=== PATIENT | female | born 1985 | race Caucasian/White ===

== ENCOUNTER → 2018-02-02 16:30 | Outpatient (CLI) | payer OTHER, SELFPAY ==
--- NOTE | 2018-02-02 16:36 | US_ITS ---
STUDY: SECOND AND THIRD TRIMESTER OBSTETRICAL ULTRASOUND REASON FOR EXAM: Female, 32 years old. anatomy. LMP: 09/15/2017 TECHNIQUE: Transabdominal PRIOR ULTRASOUND: None. FINDINGS: There is a single intrauterine fetus. The fetus is in a cephalic presentation. There is demonstrated cardiac activity with a heart rate of 153 bpm. There is a normal amniotic fluid volume. The largest amniotic fluid pocket measures 7.9 cm. The placenta is posterior with a marginal previa. There are Grade 0 placental changes. The cervix measures 3.8 cm in length. The adnexal regions are not visualized. BIOMETRY: BPD: 4.4: 19 weeks, 3 days HC: 17.4: 20 weeks, 0 days AC: 14.7: 20 weeks, 1 days FL: 3.2: 20 weeks, 0 days CI: FL/BPD: FL/HC: FL/AC: HC/AC: age by current US: 20 weeks, 0 days. SARTHAK by current US: 06/22/2018. Estimated weight: 324 grams, +/- 47 grams, 43 %. age by prior US: weeks, days. SARTHAK by prior US: . Age by LMP: 20 weeks, 0 days. SARTHAK by LMP: 06/22/2018. ANATOMY: Gender: Female Cranium: Normal lateral ventricles. Normal choroid plexus. Normal cerebellum. Normal cisterna magna. Normal face, nose and lips. Chest: Normal 4-chamber heart. Abdomen/Pelvis: Normal diaphragm. Normal stomach. Normal abdominal wall. Normal cord insertion. Normal 3 vessel cord. Normal kidneys. Normal bladder. Spine: Normal cervical spine. Normal thoracic spine. Normal lumbar spine. Normal sacrum. Extremities: Normal bilateral upper extremities. Normal bilateral lower extremities. US/OB Anatomy Scan IMPRESSION: Single live fetus in a vertex presentation. No demonstrated anatomic abnormality. Placenta is grade 0 and is marginal previa. Cervix is closed. age by current US: 20 weeks, 0 days. SARTHAK by current US: 06/22/2018. Estimated weight: 324 grams, +/- 47 grams, 43 %. Electronically Signed: Avni Larsen MD at 19:03 EDT , Service support ,
== END ==
PROVIDERS: Family Provider Family Medicine; PCP Family Medicine; Visit Provider Obstetrics & Gynecology
DX: Z34.81 Encounter for supervision of other normal pregnancy, first trimester (principal); Z36.9 Encounter for antenatal screening, unspecified
CPT/HCPCS: 76805

== ENCOUNTER → 2018-03-23 09:26 | Outpatient (CLI) | payer OTHER, SELFPAY ==
[2018-03-23 09:54] LABS: Absolute Lymphocyte Count 1.26 X10^3/ul (0.83-4.51); Absolute Neutrophil Count 5.8 X10^3/uL (2.0-7.7); Basophil# 0.01 X10^3/uL; Basophil% 0.1 % (0-1); Eosinophils% 1.3 % (0-5); Hematocrit 31.5 % (37-47); Hemoglobin 10.7 g/dl (12.0-15.0); Lymphocyte # 1.26 X10^3/ul (4.0); Lymphocyte % 16.8 % (19-41); Mean Corpuscular Hgb 31.8 pg (27.0-32.0); Mean Corpuscular Volume 93.8 fL (81-99); Mean Platelet Vol. 9.9 fl (6.2-12.0); Monocyte# 0.33 X10^3/uL; Monocyte% 4.4 % (0-10); Neutrophil # 5.78 X10^3/uL (2.7-7.7); Neutrophil % 77.1 % (47-70); POSITIVE COUNT NO; POSITIVE DIFFERENTIAL NO; POSITIVE MORPHOLOGY NO; Platelet Count 243 K/mm3 (150-450); RBC Distribution Width CV 13.8 % (11.6-14.6); RBC Distribution Width SD 45.3 fl (35.1-43.9); Red Blood Count 3.36 M/mm3 (4.2-5.4); White Blood Count 7.5 K/mm3 (4.4-11.0)
[2018-03-23 10:15] LABS: Glucose Challenge Gest 1H 50g 126 mg/dL (70-140)
== END ==
PROVIDERS: Family Provider Family Medicine; PCP Family Medicine; Visit Provider Obstetrics & Gynecology
DX: Z34.81 Encounter for supervision of other normal pregnancy, first trimester (principal)
CPT/HCPCS: 36415; 82950; 85025

== ENCOUNTER → 2018-03-30 16:36 | Outpatient (CLI) | payer OTHER, SELFPAY ==
--- NOTE | 2018-03-30 16:40 | US_ITS ---
STUDY: SECOND AND THIRD TRIMESTER OBSTETRICAL ULTRASOUND - LIMITED REASON FOR EXAM: Female, 32 years old. Follow-up placenta previa LMP: Unknown. PRIOR ULTRASOUND: February 02, 2018 TECHNIQUE: Transabdominal and transvaginal ultrasound evaluation was performed. FINDINGS: There is a single intrauterine fetus. The fetus is in a cephalic presentation. There is demonstrated cardiac activity with a heart rate of 1:30 bpm. There is a normal amniotic fluid volume. The largest amniotic fluid pocket measures 3.8 cm. The amniotic fluid index (RYAN) is 10.9 cm. The placenta is posterior and low lying but not previa in location. The cervix is 3.7 cm from the inferior aspect of the placenta on transvaginal exam . There are Grade 1 placental changes. The cervix measures 3.8 cm cm in length. BIOMETRY: BPD: 6.9 cm: 27 weeks, 4 days HC: 26.5 cm: 28 weeks, 6 days AC: 24.0 cm: 28 weeks, 2 days FL: 5.3 cm: 28 weeks, 0 days age by prior US: 28 weeks, 0 days. SARTHAK by prior US: June 22, 2018. age by current US: 28 weeks, 2 days. SARTHAK by current US: June 20, 2018. Estimated weight: 1184 grams, +/- 73 grams, 3 percentile. US/OB Limited With Biometrics IMPRESSION: Single intrauterine gestation 28 weeks 2 days with estimated due date June 20, 2018. Estimated weight 1184 g. Placenta is posterior. There is no evidence of previa. Electronically Signed: Shukri Garland MD at 8:58 EDT , Service support ,
== END ==
PROVIDERS: Family Provider Family Medicine; PCP Family Medicine; Visit Provider Obstetrics & Gynecology
DX: O44.00 Complete placenta previa NOS or without hemorrhage, unspecified trimester (principal); Z3A.00 Weeks of gestation of pregnancy not specified
CPT/HCPCS: 76816

== ENCOUNTER → 2018-05-29 16:17 | Outpatient (CLI) | payer OTHER, SELFPAY ==
[2018-05-29 21:17] LABS: Group B Strep DNA By PCR Negative (Negative); Internal Control PASS; Probe Check PASS; Specimen Processing Control PASS
== END ==
PROVIDERS: Family Provider Family Medicine; PCP Family Medicine; Visit Provider Obstetrics & Gynecology
DX: Z34.93 Encounter for supervision of normal pregnancy, unspecified, third trimester (principal); Z3A.35 35 weeks gestation of pregnancy
CPT/HCPCS: 87081; 87653

== ENCOUNTER 2018-06-29 05:40 | Inpatient (IN) | payer OTHER, SELFPAY ==
[2018-06-26 11:47] VITALS: BMI 37.2
[2018-06-29] VITALS (22 sets, daily range): BP systolic 102–118; BP diastolic 55–83; PULSE 69–90; RESP 16–18; TEMP 35.7–36.7; O2SAT 97–100
--- NOTE | 2018-06-29 05:44 | PCM.HP.OB ---
- Problem List (1) Supervision of normal in third trimester Status: Acute Qualifiers: Comment: PRR SARTHAK 06/22/18 girl Priti PRINEC Hayden Srini (2) Status: Acute Qualifiers: Comment: Pregancy History 2 Elective abortions Hx Para 1 Spontaneous abortions Hx # Term Pregnancies Ectopic pregnancies Hx # Pregnancies Multiple births # of living children Past Pregnancies Del. Date Name GA/Weeks Outcome Route Bth Weight Infant Gen Labor Lgth Anesthesia Del Locatn Provider FOB [id number] Hayden live - full termC-section Pj (3) History of section Status: Acute Comment: desires TOLAC, education given, consent signed History Date of Admission: 06/29/18 Final SARTHAK: 06/22/18 Gestational age: 41 Weeks and 0 Days History of this : This is a 32 year-old, , at 41 weeks gestational age presents for RLTCS. pateint originally desired a TOLAC but did not go into labor and therefore made the decision for a RLTCS Surgical History: Surgical History (Last Reviewed 06/26/18 @ 08:41 by Yenni Alan) delivery delivered O82 H/O colonoscopy Z98.890 wrist surgery Allergies azithromycin [From Zithromax] Allergy (Verified 06/26/18 08:40) Hives clindamycin Allergy (Verified 06/26/18 08:40) Rash sulfacetamide Allergy (Verified 06/26/18 08:40) Swelling Home Medications: Home Medications Azathioprine [Imuran] 75 mg PO DAILY@0800 09/22/14 Mesalamine [Lialda] 2.4 gm PO DAILY 09/22/14 Vits [Prenatabs FA ] 1 tab PO DAILY 05/21/16 Valacyclovir HCl [Valtrex] 500 mg PO DAILY 08/14/17 loratadine 10 mg tablet 10 mg PO QDAY 02/20/18 ranitidine 75 mg tablet 75 mg PO QDAY tab 06/21/18 Smoking Status: Never smoker Alcohol: None Number of Fetus(es): 1 Heart Tracin History Past Pregnancies: Past Pregnancies Past Pregnancies Del. Date Name GA/Weeks Outcome Route Bth Weight Gen Labor Lgth Anesthesia Del Locatn Provider FOB Unknown 2015 Hayden live - full term Janeen Decker Labs: Course Did the patient receive Yes care? Labs Blood Type: O RH: POSITIVE RPR/VDRL/Syphilis Nonreactive Rubella status Immune HbSAg Negative Date Done: 11/27/17 Chlamydia Negative Gonorrhea Negative HIV/AIDS Non-Reactive Group B Strep: Negative Current Obstetrical History Gestational Diabetes No Incompetent Cervix No Infertility No IUGR No Macrosomia No Hypertension/Pre-eclampsia No Placenta Previa/Abruption No PTL/PROM No Uterine anomaly No Oligohydramnios No Polyhydramnios No Multiple gestation No Past Medical History Asthma No Diabetes No Hypertension No Heart disease No Mitral valve prolapse No Neurologic/Seizure disorder/ No Migraines Kidney disease No Liver disease No Varicosities No Clotting disorders/Hx of DVT No Thyroid Dysfunction No Other medical diseases No Psychiatric disorders No Major trauma No Abnormal PAP smear No Sleep apnea No Mammogram in the last 2 years No Social History Marital Status: Alleged father Srini Hx Smoking No Smoking Status Never smoker Expected Delivery Method: Scheduled Section Review of Systems Constitutional: Denies: Fever, Malaise Eyes: Denies: Blurred vision, Vision Change HEENT: Denies: Head Aches, Visual Changes Cardiovascular: Denies: Chest Pain, Palpitations Respiratory: Denies: Cough, Shortness of Breath, Wheezing Gastrointestinal: Denies: Abdominal Pain, Diarrhea, Nausea, Vomiting Genitourinary: Denies: Dysuria, Hematuria Musculoskeletal: Denies: Joint Pain, Muscle pain Skin: Denies: Lesions, Rash Neurological: Denies: Blurred vision, Focal weakness, Headaches Psychiatric: Denies: Anxiety, Depression Endocrine: Denies: Heat/ Cold Intolerance Hematologic/ Lymphatic: Denies: Easy Bruising, Easy Bleeding Physical Exam General: Alert, Cooperative, No apparent distress HEENT: Atraumatic, Normocephalic. Negative for: Thyromegaly, Lymphadenopathy Cardiovascular: Regular rate Lungs: Normal air movement Abdomen: Soft, Non Tender, Gravid Neurological: Deep Tendon Reflexes 2+/4 and Symmetrical, Neuro grossly intact. Negative for: Clonus A&P TECHNICIAN: Normal external genitalia. Negative for: Vulvar lesions Estimated gestational size: Appropriate for gestational size Presentation: Cephalic Assessment/Plan All Active Problems (Last Reviewed 06/26/18 @ 08:41 by Yenni Alan) Supervision of normal in third trimester (Acute) (Acute) History of section (Acute) Acute bacterial conjunctivitis (Resolved) Decreased movement (Resolved) Marginal placenta previa (Resolved) Supervision of normal in first trimester (Resolved) This is a 32 year-old, , at 41 weeks gestational age. plan RLTCS declined TOLAC
[2018-06-29] MEDS: Lactated Ringers 1,000 ML 999 ML IV (06:15)
[2018-06-29 06:40] LABS: Absolute Lymphocyte Count 1.48 X10^3/ul (0.83-4.51); Absolute Neutrophil Count 6.6 X10^3/uL (2.0-7.7); Basophil# 0.04 X10^3/uL; Basophil% 0.5 % (0-1); Eosinophil# 0.14 X10^3/uL; Eosinophils% 1.6 % (0-5); Hematocrit 29.9 % (37-47); Hemoglobin 9.3 g/dl (12.0-15.0); Lymphocyte # 1.48 X10^3/ul (4.0); Lymphocyte % 16.8 % (19-41); Mean Corp Hgb Conc 31.1 g/gl (32-36); Mean Corpuscular Hgb 27.2 pg (27.0-32.0); Mean Corpuscular Volume 87.4 fL (81-99); Mean Platelet Vol. 10.3 fl (6.2-12.0); Monocyte# 0.43 X10^3/uL; Monocyte% 4.9 % (0-10); Neutrophil # 6.64 X10^3/uL (2.7-7.7); Neutrophil % 75.5 % (47-70); Platelet Count 248 K/mm3 (150-450); RBC Distribution Width CV 15.8 % (11.6-14.6); RBC Distribution Width SD 49.2 fl (35.1-43.9); Red Blood Count 3.42 M/mm3 (4.2-5.4); White Blood Count 8.8 K/mm3 (4.4-11.0)
[2018-06-29 06:43] LABS: POSITIVE COUNT NO; POSITIVE DIFFERENTIAL NO; POSITIVE MORPHOLOGY NO
[2018-06-29] MEDS: Sodium Citrate/Citric Acid 30 ML UDC PO (07:15)
[2018-06-29] MEDS: Lactated Ringers 1,000 ML 150 ML IV ×2 (07:15→11:09)
[2018-06-29] MEDS: Cefazolin 2 GM in 0.9% Normal Saline 100 ML IV (07:20)
[2018-06-29] MEDS: Oxytocin 30 units/NS 500 ml 30 UNITS/500 ML IV.SOLN 167 UNITS IV (07:52)
[2018-06-29] MEDS: Lactated Ringers 1,000 ML 100 ML IV ×2 (11:10→20:55)
[2018-06-29] MEDS: Ketorolac 30 MG/ML Syringe IV ×2 (14:58→21:00)
[2018-06-29] MEDS: Famotidine 20 MG Tablet 10 MG PO (14:59)
--- NOTE | 2018-06-29 17:46 | NURSING ---
1730 While rounding Mom states that nursing has been going well and encouraged to call if she would like assistance with feeding. Charan SÁNCHEZ
[2018-06-29] MEDS: 0.9% Saline Lock 10 ML Syringe IV (21:00)
[2018-06-30] VITALS (8 sets, daily range): BP systolic 92–108; BP diastolic 48–73; PULSE 73–95; RESP 16–18; TEMP 36.1–36.6; O2SAT 96–98
[2018-06-30] MEDS: Ketorolac 30 MG/ML Syringe IV ×4 (02:25→18:22)
[2018-06-30] MEDS: 0.9% Saline Lock 10 ML Syringe IV ×4 (05:24→18:22)
[2018-06-30 05:48] LABS: Hematocrit 25.2 % (37-47); Hemoglobin 7.9 g/dl (12.0-15.0); Mean Corp Hgb Conc 31.3 g/gl (32-36); Mean Corpuscular Hgb 27.5 pg (27.0-32.0); Mean Corpuscular Volume 87.8 fL (81-99); Mean Platelet Vol. 10.7 fl (6.2-12.0); Platelet Count 209 K/mm3 (150-450); RBC Distribution Width SD 49.8 fl (35.1-43.9); Red Blood Count 2.87 M/mm3 (4.2-5.4); White Blood Count 8.9 K/mm3 (4.4-11.0)
[2018-06-30 05:50] LABS: Scan Indicated on CBC? Y/N NO
[2018-06-30] MEDS: Mesalamine 1.2 GM Tablet 2.4 GM PO (08:29)
[2018-06-30] MEDS: azaTHIOprine 50 MG Tablet 75 MG PO (08:35)
[2018-06-30] MEDS: Prenatal Vits Tablet 1 TABLET PO (08:36)
[2018-06-30] MEDS: Famotidine 20 MG Tablet 10 MG PO (08:36)
--- NOTE | 2018-06-30 10:33 | PCM.PN.OB ---
Subjective: s/p ltcs routine care ambulate increase po intake - Physical Exam General: Alert, Oriented x3 Vital Signs Temp Pulse Resp BP Pulse Ox 97.8 F 78 16 108/67 98 06/30/18 08:50 06/30/18 08:50 06/30/18 08:50 06/30/18 08:50 06/30/18 08:50 Oxygen Delivery Method Room Air Weight: 217 lb Body Mass Index (BMI) 37.2 Intake and Output for Last 24 Hours 06/28/18 06/29/18 06/30/18 23:59 23:59 23:59 Intake Total 5081 / 5081 1461 / 1461 Output Total 2350 / 2350 2200 / 2200 Balance 2731 / 2731 -739 / -739 Laboratory Tests Past 24 Hrs 06/30/18 05:20 WBC 8.9 RBC 2.87 L Hgb 7.9 L Hct 25.2 L MCV 87.8 MCH 27.5 MCHC 31.3 L RDW 16.0 H RDW Differential 49.8 H Plt Count 209 MPV 10.7 Medical Necessity - Tobacco Use Smoking Status: Never smoker Assessment/Plan All Active Problems (Last Reviewed 06/26/18 @ 08:41 by Yenni Alan) Supervision of normal in third trimester (Acute) (Acute) History of section (Acute) Acute bacterial conjunctivitis (Resolved) Decreased movement (Resolved) Marginal placenta previa (Resolved) Supervision of normal in first trimester (Resolved) s/p LTCS routine care
[2018-07-01] MEDS: Ketorolac 30 MG/ML Syringe IV (00:15)
--- NOTE | 2018-07-01 03:09 | PCM.OPRPT ---
Problem List (1) Supervision of normal in third trimester Status: Acute Qualifiers: Comment: PRR SARTHAK 06/22/18 girl Priti Blake Srini (2) Status: Acute Qualifiers: Comment: Pregancy History 2 Elective abortions Hx Para 1 Spontaneous abortions Hx # Term Pregnancies Ectopic pregnancies Hx # Pregnancies Multiple births # of living children Past Pregnancies Del. Date Name GA/Weeks Outcome Route Bth Weight Infant Gen Labor Lgth Anesthesia Del Locatn Provider FOB [id number] Hayden live - full termC-section [place] (3) History of section Status: Acute Comment: desires TOLAC, education given, consent signed Report of Operation Date of Procedure: 06/29/18 Pre-Operative Diagnosis: previous Post-Operative Diagnosis: same Surgery/Procedure Performed:: RLTCS Description of Surgical Findings:: normal uterus tubes ovaries tooth cutter clutch: Rony Razo Type of Anesthesia:: Spinal Special Medications: none Specimen's removed: female infant vertex Drains: boyd Estimated Blood Loss (mL): 500 Fluids Replaced: crystalloid Description of Procedure: Spinal anesthesia was placed without difficulty. Boyd catheter was placed. The patient was placed in the dorsal supine position with leftward tilt. Patient was prepped and draped in the normal sterile fashion. Pfannenstiel skin incision was made with the scalpel and carried through to the underlying layer of fascia with the scalpel. Fascia was nicked in the midline and the incision extended laterally. The rectus bellies were dissected off superiorly and inferiorly with out complication both sharply and bluntly. The peritoneum was entered digitally. The incision was stretched and a low transverse uterine incision was made with the scalpel. The infant's head was delivered atraumatically followed by the anterior and posterior shoulders without complication the rest of the infant delivered. The cord was clamped and cut and the was handed off to awaiting nurse. The placenta was delivered spontaneously immediately following and was noted to be intact and have a three-vessel cord. The uterus was exteriorized cleared of all clots and debris, and the incision was closed in a double layer closure using #1 Monocryl. The uterus was returned to the maternal abdomen and gutters were cleared of all clots and debris. The ovaries and fallopian tubes were noted to be within normal limits. The peritoneum was closed with 3-0 Monocryl in a running fashion. Fascia was closed with 0 PDS in a running fashion. Subcutaneous tissue was copiously irrigated and the skin was closed with 3-0 Monocryl in a subcuticular fashion. Mepilex dressing were applied without complication. Patient was taken to recovery in stable condition. Grafts/Implants Used: none - Complications none
--- NOTE | 2018-07-01 03:13 | PCM.DCCSEC ---
Discharge Diet: No Restrictions Discharge Activity: May Not Drive - for 2 weeks, May not drive while taking narcotic pain medications., May Shower, May Take a Tub Bath - in 7 days May resume sexual activity in: 4-6 weeks Lifting Restrictions: 20 pounds Additional Activity Instructions:: Nothing in the vagina for 4-6 weeks. You may return to work/school in 6 weeks. Call your doctor if your incision/area has: Continuous Slow Oozing, Sudden Increased Bleeding, Increased Pain/ Swelling, Increased Redness, Foul Smelling Discharge Call your doctor if you observe: Fever of 101 or Higher, Using more than one pad per hour - for 2 hours Suture Line Care: Avoid Pulling/Pushing, Avoid Pinching/Bending Cleanse incision/area with: Keep Dressing Clean & Dry Additional Instructions: If you experience any of the following, contact your healthcare provider. Bleeding that soaks a pad every hour for 2 hours Fever 100.4 or higher Unrelieved incision or abdominal pain Swelling, redness, discharge or bleeding from your incision or episiotomy site Your incision begins to separate Problems urinating (including inability to urinate or burning while urinating). Visual changes Severe headache Flu-like symptoms Pain or redness in one of both of your breasts Pain, warmth, tenderness or swelling in your legs, especially the calf area Frequent nausea and vomiting Symptoms of depression or anxiety If you experience any of the following, call 911 or go to the nearest Emergency Room. Chest pain Problems breathing Seizure activity Partial or complete paralysis of a body part, slurred speech, weakness or drooping of the face, or a sudden inability to walk or hold your balance Allergies/Adverse Reactions: Allergies azithromycin [From Zithromax] Allergy (Verified 06/26/18 08:40) Hives clindamycin Allergy (Verified 06/26/18 08:40) Rash sulfacetamide Allergy (Verified 06/26/18 08:40) Swelling Medications to take at Discharge Azathioprine [Imuran] 75 mg PO DAILY@0800 09/22/14 Mesalamine [Lialda] 2.4 gm PO DAILY 09/22/14 Vits [Prenatabs FA ] 1 tab PO DAILY 05/21/16 Valacyclovir HCl [Valtrex] 500 mg PO DAILY 08/14/17 loratadine 10 mg tablet 10 mg PO QDAY 02/20/18 ranitidine 75 mg tablet 75 mg PO QDAY tab 06/21/18 Follow-Up: Call to make an appointment with your doctor for an incision check in 1-2 weeks. You will also need a 6 week post- follow up appointment. Test results from this visit will be discussed in further detail at your follow-up appointment, if applicable. Please Follow Up With: Iesha Chandra MD - Call to make an appointment for an incision check in 1-2 [phone] When: You will need a post- check in 6 weeks. Primary Care Physician: Ovidio Mohamud MD [Primary Care Provider] -
[2018-07-01 03:55] VITALS: BP 126/61; PULSE 60; RESP 16; TEMP 36.6
--- NOTE | 2018-07-01 06:56 | PCM.PN.OB ---
Subjective: doing well no complaints pain controlled no CP SOB N V ambulating well tolerating po lochia moderate, going well - Physical Exam General: Alert, Oriented x3 Vital Signs Temp Pulse Resp BP Pulse Ox 97.8 F 60 16 126/61 H 98 07/01/18 03:55 07/01/18 03:55 07/01/18 03:55 07/01/18 03:55 06/30/18 20:00 Oxygen Delivery Method Room Air Weight: 217 lb Body Mass Index (BMI) 37.2 Intake and Output for Last 24 Hours 06/29/18 06/30/18 07/01/18 23:59 23:59 23:59 Intake Total 5081 / 5081 1461 / 1461 Output Total 2350 / 2350 3900 / 3900 Balance 2731 / 2731 -2439 / -2439 Medical Necessity - Tobacco Use Smoking Status: Never smoker Assessment/Plan All Active Problems (Last Reviewed 06/26/18 @ 08:41 by Yenni Alan) Supervision of normal in third trimester (Acute) (Acute) History of section (Acute) Acute bacterial conjunctivitis (Resolved) Decreased movement (Resolved) Marginal placenta previa (Resolved) Supervision of normal in first trimester (Resolved) s/p LTCS PPD # 2 1. routine post care 2. breast feeding- support given 3. rh positive 4. rubella immune dc home
[2018-07-01 07:55] VITALS: BP 112/80; PULSE 78; RESP 16; TEMP 36.3; O2SAT 97
[2018-07-01] MEDS: Famotidine 20 MG Tablet 10 MG PO (08:30)
[2018-07-01] MEDS: Naproxen 250 MG Tablet PO (08:30)
[2018-07-01] MEDS: Prenatal Vits Tablet 1 TABLET PO (08:32)
[2018-07-01] MEDS: azaTHIOprine 50 MG Tablet 75 MG PO (08:34)
[2018-07-01] MEDS: Mesalamine 1.2 GM Tablet 2.4 GM PO (08:36)
--- NOTE | 2018-07-01 10:56 | NURSING ---
Agree with assessment per ACole RN
[2018-07-01 11:36] VITALS: BP 106/67; PULSE 83; RESP 18; TEMP 36.3; O2SAT 96
== END 2018-07-01 12:05 | disposition home or self-care (01) | DRG 766 ==
PROVIDERS: Admitting Provider Obstetrics & Gynecology; Family Provider Family Medicine; PCP Family Medicine; Visit Provider Obstetrics & Gynecology
PROC: 10D00Z1 Extraction of Products of Conception, Low, Open Approach (ICD-10-PCS; CPT 59514; principal; 2018-06-29 07:15)
DX: O34.211 Maternal care for low transverse scar from previous cesarean delivery (principal); N85.8 Other specified noninflammatory disorders of uterus; O48.0 Post-term pregnancy; Z3A.41 41 weeks gestation of pregnancy; Z37.0 Single live birth
CPT/HCPCS: 85025; 85027; 86850; 86900; 99218; J7120; A4216; G0378; J2405

== ENCOUNTER → 2018-09-17 13:31 | Outpatient (CLI) | payer OTHER, SELFPAY ==
--- NOTE | 2018-09-17 13:33 | BI_ITS ---
MAMMOGRAPHY - BILATERAL DIAGNOSTIC REASON FOR EXAM: Female, 32 years old. Right breast lump. The patient is currently nursing. PERTINENT HISTORY: Non-contributory. TECHNIQUE: Digital bilateral breast priyanka (3D mammographic acquisition) in the CC and MLO projections. 2-D mediolateral oblique (MLO) and craniocaudad (CC) views of both breasts were obtained. CAD: Full Field Digital Mammography with Computer Added Detection was performed. COMPARISON: None. Baseline examination. FINDINGS: Breast Composition: The breasts are extremely dense, which lowers the sensitivity of mammography. There are no dominant masses or suspicious calcifications. No other significant abnormalities are identified. BI/DIAG MAMM W/CAD, BILAT IMPRESSION: Negative diagnostic mammogram. Comparison with right breast ultrasound is recommended with the patient's history of a palpable abnormality. ASSESSMENT CATEGORY: BIRADS Category 0: Incomplete. Need additional imaging evaluation. A letter regarding these results will be sent to the patient by the facility within 30 days. Approximately 10% of breast cancers are not detected by mammography. A normal mammogram should not delay biopsy of a clinically suspicious abnormality. Electronically Signed: Alexandro Graham MD at 15:18 EST Tel [phone], Service support ,
--- NOTE | 2018-09-17 13:33 | US_ITS ---
STUDY: ULTRASOUND BREAST - RIGHT REASON FOR EXAM: Female, 32 years old. Palpable lump in the right breast. The patient is nursing. TECHNIQUE: Axial and longitudinal images of the RIGHT breast were performed with a high resolution ultrasound transducer. COMPARISON: Comparison is made with prior mammogram done earlier today. FINDINGS: RIGHT Breast: There is a 9 mm x 10 mm x 9 mm cyst at the 10:00 position in the breast at 4 cm from the nipple. US/Breast Limited Unilateral IMPRESSION: 9 mm x 10 mm x 9 mm cyst at the 10:00 position of the breast at 4 cm from nipple. ASSESSMENT CATEGORY: BIRADS Category 2: Benign. A letter regarding these results will be sent to the patient by the facility within 30 days. Electronically Signed: Alexandro Graham MD at 15:04 EST Tel [phone], Service support ,
== END ==
PROVIDERS: Family Provider Family Medicine; PCP Family Medicine; Referring Provider Obstetrics & Gynecology; Visit Provider Obstetrics & Gynecology
DX: N63.0 Unspecified lump in unspecified breast (principal)
CPT/HCPCS: 76642; 77062; 77066; G0279

== ENCOUNTER 2019-06-11 14:30 | Outpatient (RCR) | payer OTHER, SELFPAY ==
[2019-02-12 16:48] VITALS: BMI 32.8
[2019-06-11 15:39] LABS: Absolute Lymphocyte Count 2.05 X10^3/uL (0.83-4.51); Absolute Neutrophil Count 3.6 X10^3/uL (2.0-7.7); Basophil# 0.03 X10^3/uL; Basophil% 0.5 % (0-1); Eosinophil# 0.19 X10^3/uL; Hematocrit 35.4 % (37-47); Hemoglobin 11.4 g/dL (12.0-15.0); Lymphocyte # 2.05 X10^3/ul (4.0); Lymphocyte % 32.2 % (19-41); Mean Corp Hgb Conc 32.2 g/dL (32-36); Mean Corpuscular Hgb 30.2 pg (27.0-32.0); Mean Corpuscular Volume 93.9 fL (81-99); Mean Platelet Vol. 10.2 fl (6.2-12.0); Monocyte# 0.45 X10^3/uL; Monocyte% 7.1 % (0-10); NRBC Flagged by Analyzer 0 % (0-5); Neutrophil # 3.62 X10^3/uL (2.7-7.7); Neutrophil % 56.7 % (47-70); Platelet Count 311 K/mm3 (150-450); RBC Distribution Width CV 14.8 % (11.6-14.6); RBC Distribution Width SD 50.8 fl (35.1-43.9); Red Blood Count 3.77 M/mm3 (4.2-5.4); White Blood Count 6.4 K/mm3 (4.4-11.0)
[2019-06-11 17:27] LABS: AST(SGOT) 15 U/L (15-37); Alanine Aminotransfer ALT/SGPT 13 U/L (13-56); Albumin, Serum 3.8 g/dL (3.2-5.0); Alkaline Phosphatase 76 U/L (45-117); Bilirubin, Direct 0.07 mg/dL (0.00-0.30); Globulin 3.2 g/dL (2.2-4.2)
== END 2019-06-12 16:25 | disposition home or self-care (01) ==
LOC: LAB 14:30
PROVIDERS: Family Provider Family Medicine; PCP Family Medicine; Referring Provider Internal Medicine Gastroenterology; Visit Provider Internal Medicine Gastroenterology
DX: K51.90 Ulcerative colitis, unspecified, without complications (principal)
CPT/HCPCS: 36415; 80076; 85025

== ENCOUNTER 2019-10-16 08:48 | Outpatient (RCR) | payer OTHER, SELFPAY ==
[2019-02-12 16:48] VITALS: BMI 32.8
[2019-09-16 09:06] VITALS: BMI 32.8
[2019-10-16 10:43] LABS: Basophil# 0.03 X10^3/uL; Basophil% 0.5 % (0-1); Eosinophil# 0.14 X10^3/uL; Eosinophils% 2.3 % (0-5); Hematocrit 35.3 % (37-47); Hemoglobin 11.3 g/dL (12.0-15.0); Lymphocyte % 24.6 % (19-41); Mean Corpuscular Hgb 29.7 pg (27.0-32.0); Mean Corpuscular Volume 92.9 fL (81-99); Mean Platelet Vol. 10.5 fl (6.2-12.0); Monocyte# 0.39 X10^3/uL; Monocyte% 6.4 % (0-10); NRBC Flagged by Analyzer 0 % (0-5); Neutrophil % 65.7 % (47-70); Platelet Count 291 K/mm3 (150-450); RBC Distribution Width CV 16.7 % (11.6-14.6); RBC Distribution Width SD 57.1 fl (35.1-43.9); White Blood Count 6.1 K/mm3 (4.4-11.0)
[2019-10-16 11:13] LABS: AST(SGOT) 15 U/L (15-37); Alanine Aminotransfer ALT/SGPT 13 U/L (13-56); Albumin, Serum 3.7 g/dL (3.2-5.0); Alkaline Phosphatase 61 U/L (45-117); Bilirubin, Direct 0.08 mg/dL (0.00-0.30); Protein, Total 6.7 g/dL (6.4-8.2)
== END 2019-10-16 18:00 | disposition home or self-care (01) ==
LOC: LAB 08:48
PROVIDERS: Family Provider Family Medicine; PCP Family Medicine; Referring Provider Internal Medicine Gastroenterology; Visit Provider Internal Medicine Gastroenterology
DX: K51.90 Ulcerative colitis, unspecified, without complications (principal)
CPT/HCPCS: 36415; 80076; 85025

== ENCOUNTER 2020-05-19 09:09 | Outpatient (RCR) | payer OTHER, SELFPAY ==
[2019-09-16 09:06] VITALS: BMI 32.8
[2020-02-05 12:33] VITALS: BMI 32.8
[2020-05-19 09:36] LABS: Absolute Neutrophil Count 3.9 X10^3/uL (2.0-7.7); Basophil# 0.03 X10^3/uL; Basophil% 0.5 % (0-1); Eosinophils% 3.3 % (0-5); Hematocrit 40.7 % (37-47); Lymphocyte % 24.6 % (19-41); Mean Corp Hgb Conc 31.9 g/dL (32-36); Mean Corpuscular Hgb 30.5 pg (27.0-32.0); Mean Corpuscular Volume 95.5 fL (81-99); Mean Platelet Vol. 10.4 fl (6.2-12.0); Monocyte# 0.44 X10^3/uL; Monocyte% 7.2 % (0-10); NRBC Flagged by Analyzer 0 % (0-5); Neutrophil # 3.91 X10^3/uL (2.7-7.7); Neutrophil % 64.1 % (47-70); Platelet Count 275 K/mm3 (150-450); RBC Distribution Width CV 13.2 % (11.6-14.6); RBC Distribution Width SD 46.5 fl (35.1-43.9); Red Blood Count 4.26 M/mm3 (4.2-5.4); White Blood Count 6.1 K/mm3 (4.4-11.0)
[2020-05-19 10:02] LABS: AST(SGOT) 26 U/L (15-37); Alanine Aminotransfer ALT/SGPT 18 U/L (13-56); Albumin, Serum 3.9 g/dL (3.2-5.0); Alkaline Phosphatase 63 U/L (45-117); Globulin 3.5 g/dL (2.2-4.2); Protein, Total 7.4 g/dL (6.4-8.2)
== END 2020-05-19 18:00 | disposition home or self-care (01) ==
LOC: LAB 09:09
PROVIDERS: Family Provider Family Medicine; PCP Family Medicine; Referring Provider Internal Medicine Gastroenterology; Visit Provider Internal Medicine Gastroenterology
DX: K51.90 Ulcerative colitis, unspecified, without complications (principal)
CPT/HCPCS: 36415; 80076; 85025

== ENCOUNTER → 2020-07-13 17:50 | Outpatient (CLI) | payer OTHER, SELFPAY ==
[2020-07-13 14:23] VITALS: BMI 32.8
[2020-07-13 19:17] LABS: Amphetamine Urine VISTA NEGATIVE (<1000 ng/mL); Barbiturate Urine VISTA NEGATIVE (< 200 ng/mL); Benzodiazepine Urine VISTA NEGATIVE (< 200 ng/mL); Cocaine Urine VISTA NEGATIVE (< 300 ng/mL); Ecstacy Urine VISTA NEGATIVE (< 500 ng/mL); Methadone Urine VISTA NEGATIVE (< 300 ng/mL); PCP Urine VISTA NEGATIVE (< 25 ng/mL); THC Urine VISTA NEGATIVE (< 50 ng/mL); Vista UDS pH Range 6
[2020-07-16 09:04] LABS: Chlamydia By Nucleic Acid AMP Negative (Negative)
[2020-07-16 09:17] LABS: Gonococcus By Nucleic Acid AMP Negative (Negative)
== END ==
PROVIDERS: PCP Family Medicine; Referring Provider Obstetrics & Gynecology; Visit Provider Obstetrics & Gynecology
DX: Z34.90 Encounter for supervision of normal pregnancy, unspecified, unspecified trimester (principal)
CPT/HCPCS: 80307; 87086; 87088; 87491; 87591

== ENCOUNTER → 2020-07-14 09:17 | Outpatient (CLI) | payer OTHER, SELFPAY ==
[2020-07-13 14:23] VITALS: BMI 32.8
[2020-07-14 10:26] LABS: Absolute Lymphocyte Count 1.38 X10^3/uL (0.83-4.51); Absolute Neutrophil Count 6.4 X10^3/uL (2.0-7.7); Basophil# 0.03 X10^3/uL; Basophil% 0.4 % (0-1); Eosinophil# 0.11 X10^3/uL; Eosinophils% 1.3 % (0-5); Hematocrit 36.6 % (37-47); Hemoglobin 11.7 g/dL (12.0-15.0); Lymphocyte # 1.38 X10^3/ul (4.0); Lymphocyte % 16.4 % (19-41); Mean Corpuscular Hgb 30.4 pg (27.0-32.0); Mean Corpuscular Volume 95.1 fL (81-99); Mean Platelet Vol. 10.6 fl (6.2-12.0); Monocyte# 0.44 X10^3/uL; Monocyte% 5.2 % (0-10); NRBC Flagged by Analyzer 0 % (0-5); Neutrophil # 6.41 X10^3/uL (2.7-7.7); Neutrophil % 76.5 % (47-70); Platelet Count 255 K/mm3 (150-450); RBC Distribution Width CV 14.4 % (11.6-14.6); RBC Distribution Width SD 50.5 fl (35.1-43.9); Red Blood Count 3.85 M/mm3 (4.2-5.4); White Blood Count 8.4 K/mm3 (4.4-11.0)
[2020-07-14 10:53] LABS: Glucose Challenge Gest 1H 50g 73 mg/dL (70-140)
[2020-07-14 11:36] LABS: HIV - WCH Non-Reactive (Nonreactive); Hepatitis B Surface Antigen Non-Reactive (Nonreactive); Hepatitis C Antibody Non-Reactive (Nonreactive); Rubella IgG 24.1 IU/mL
[2020-07-14 15:50] LABS: Chlamydia Trachomatis by PCR Negative (Negative); Neisserai gonorrhoeae by PCR Negative (Negative); Probe Check PASS; Sample Adequacy Control PASS; Specimen Processing Control PASS
[2020-07-16 06:28] LABS: Rapid Plasmin Reagin (RPR) NONREACTIVE (NONREACTIVE)
== END ==
PROVIDERS: PCP Family Medicine; Referring Provider Obstetrics & Gynecology; Visit Provider Obstetrics & Gynecology
DX: Z34.90 Encounter for supervision of normal pregnancy, unspecified, unspecified trimester (principal)
CPT/HCPCS: 36415; 82950; 85025; 86592; 86703; 86762; 86803; 86850; 86900; 86901; 87340; 87491; 87591

== ENCOUNTER 2020-09-18 09:29 | Outpatient (RCR) | payer OTHER, SELFPAY ==
[2020-02-05 12:33] VITALS: BMI 32.8
[2020-09-08 12:59] VITALS: BMI 34.7
[2020-09-18 10:29] LABS: Absolute Lymphocyte Count 1.34 X10^3/uL (0.83-4.51); Absolute Neutrophil Count 7.5 X10^3/uL (2.0-7.7); Basophil# 0.03 X10^3/uL; Basophil% 0.3 % (0-1); Eosinophil# 0.12 X10^3/uL; Eosinophils% 1.3 % (0-5); Hematocrit 35.3 % (37-47); Hemoglobin 11.5 g/dL (12.0-15.0); Lymphocyte # 1.34 X10^3/ul (4.0); Lymphocyte % 14.2 % (19-41); Mean Corp Hgb Conc 32.6 g/dL (32-36); Mean Corpuscular Hgb 31.3 pg (27.0-32.0); Mean Corpuscular Volume 96.2 fL (81-99); Mean Platelet Vol. 10.7 fl (6.2-12.0); Monocyte# 0.38 X10^3/uL; NRBC Flagged by Analyzer 0 % (0-5); Neutrophil # 7.53 X10^3/uL (2.7-7.7); Neutrophil % 79.7 % (47-70); Platelet Count 242 K/mm3 (150-450); RBC Distribution Width CV 13.5 % (11.6-14.6); RBC Distribution Width SD 47.8 fl (35.1-43.9); Red Blood Count 3.67 M/mm3 (4.2-5.4); White Blood Count 9.5 K/mm3 (4.4-11.0)
== END 2020-09-18 18:00 | disposition home or self-care (01) ==
LOC: LAB 09:29
PROVIDERS: Family Provider Family Medicine; PCP Family Medicine; Referring Provider Internal Medicine Gastroenterology; Visit Provider Internal Medicine Gastroenterology
DX: K51.90 Ulcerative colitis, unspecified, without complications (principal)
CPT/HCPCS: 36415; 85025

== ENCOUNTER → 2020-09-22 16:05 | Outpatient (CLI) | payer OTHER, SELFPAY ==
[2020-08-10 14:11] VITALS: BMI 32.8
[2020-09-08 12:59] VITALS: BMI 34.7
--- NOTE | 2020-09-22 16:06 | US_ITS ---
STUDY: SECOND AND THIRD TRIMESTER OBSTETRICAL ULTRASOUND REASON FOR EXAM: Female, 34 years old. Anatomy. LMP: 06/09/2020. TECHNIQUE: Transabdominal TECHNICAL QUALITY: Adequate. PRIOR ULTRASOUND: None. FINDINGS: There is a single intrauterine fetus. The fetus is in an transverse lie with the head on the maternal left side. There is demonstrated cardiac activity with a heart rate of 141 bpm. There is a normal amniotic fluid volume. The largest amniotic fluid pocket measures 3.5 cm. The placenta is fundal and posterior and not low lying. There are Grade 0 placental changes. The cervix measures 4.6 cm in length. The bilateral adnexal regions are normal. BIOMETRY: BPD: 3.96 cm: 18 weeks, 0 days HC: 15.89 cm: 18 weeks, 5 days AC: 12.88 cm: 18 weeks, 3 days FL: 2.84 cm: 18 weeks, 5 days CI: 68.63 FL/BPD: 71.81 FL/HC: 17.9 FL/AC: 22.08 HC/AC: 1.23 age by current US: 18 weeks, 4 days. SARTHAK by current US: 02/19/2021. Estimated weight: 243 grams, +/- 37 grams, 11 %. Age by LMP: 19 weeks, 2 days. SARTHAK by LMP: 02/14/2021. ANATOMY: Gender: Female Cranium: Normal lateral ventricles. Normal choroid plexus. Normal cerebellum. Normal cisterna magna. Normal face, nose and lips. Chest: Normal 4-chamber heart. Abdomen/Pelvis: Normal diaphragm. Normal stomach. Normal abdominal wall. Normal cord insertion. Normal 3 vessel cord. Normal kidneys. Normal bladder. Spine: Normal cervical spine. Normal thoracic spine. Normal lumbar spine. Normal sacrum. Extremities: Normal bilateral upper extremities. Normal bilateral lower extremities. US/OB Anatomy Scan IMPRESSION: 1. Live single intrauterine 18 weeks, 4 days. SARTHAK is 02/19/2021. 2. EFW 243 g. 3. Adequate amniotic fluid. 4. Fundal and posterior grade 0 placenta. 5. Transverse lie with head to the maternal left. 6. No visualized anatomic abnormality. Electronically Signed: Jong Charles DO at 16:03 EST Tel [phone], Service support ,
== END ==
PROVIDERS: PCP Family Medicine; Referring Provider Obstetrics & Gynecology; Visit Provider Obstetrics & Gynecology
DX: O09.90 Supervision of high risk pregnancy, unspecified, unspecified trimester (principal); Z3A.18 18 weeks gestation of pregnancy
CPT/HCPCS: 76805

== ENCOUNTER → 2020-11-23 16:00 | Outpatient (CLI) | payer OTHER, SELFPAY ==
[2020-11-03 13:08] VITALS: BMI 36.6
[2020-11-23 10:54] LABS: Absolute Lymphocyte Count 1.21 X10^3/uL (0.83-4.51); Absolute Neutrophil Count 9.1 X10^3/uL (2.0-7.7); Basophil# 0.02 X10^3/uL; Basophil% 0.2 % (0-1); Eosinophil# 0.19 X10^3/uL; Eosinophils% 1.7 % (0-5); Hematocrit 33.4 % (37-47); Hemoglobin 10.8 g/dL (12.0-15.0); Lymphocyte # 1.21 X10^3/ul (4.0); Lymphocyte % 10.9 % (19-41); Mean Corp Hgb Conc 32.3 g/dL (32-36); Mean Corpuscular Hgb 30.9 pg (27.0-32.0); Mean Corpuscular Volume 95.7 fL (81-99); Mean Platelet Vol. 10.6 fl (6.2-12.0); Monocyte# 0.36 X10^3/uL; Monocyte% 3.2 % (0-10); NRBC Flagged by Analyzer 0 % (0-5); Neutrophil # 9.11 X10^3/uL (2.7-7.7); Neutrophil % 82.2 % (47-70); Platelet Count 232 K/mm3 (150-450); RBC Distribution Width CV 13.9 % (11.6-14.6); RBC Distribution Width SD 48.1 fl (35.1-43.9); Red Blood Count 3.49 M/mm3 (4.2-5.4); White Blood Count 11.1 K/mm3 (4.4-11.0)
[2020-11-23 11:18] LABS: Glucose Challenge Gest 1H 50g 107 mg/dL (70-140)
--- NOTE | 2020-11-23 16:02 | US_ITS ---
STUDY: SECOND AND THIRD TRIMESTER OBSTETRICAL ULTRASOUND - LIMITED REASON FOR EXAM: Female, 35 years old GROWTH LMP: 05/10/2020 PRIOR ULTRASOUND: 09/22/2020 TECHNIQUE: Transabdominal TECHNICAL QUALITY: Adequate. FINDINGS: There is a single intrauterine fetus. The fetus is in a cephalic presentation. There is demonstrated cardiac activity with a heart rate of 176 bpm. There is a normal amniotic fluid volume. The largest amniotic fluid pocket measures 5 cm. The amniotic fluid index (RYAN) is 12.6 cm. The placenta is posterior in location and is not low lying. There are Grade 1 placental changes. The cervix measures 4.9 cm in length. BIOMETRY: BPD: 6.7 cm: 26 weeks, 6 days HC: 9.3 cm: 28 weeks, 4 days AC: 26.7 cm: 29 weeks, 0 days FL: 5 cm: 26 weeks, 6 days Age by LMP: 28 weeks, 1 days. SARTHAK by LMP: . SARTHAK by prior US: 02/19/2021. age by current US: 27 weeks, 5 days. SARTHAK by current US: 02/17/2021. Estimated weight: 1051 grams, +/- 158 grams, 13 percentile. Gender: Indeterminant US/OB Limited With Biometrics IMPRESSION: Single live intrauterine in breech presentation of 27 week 5 day gestation with an SARTHAK of 02/17/2021 with appropriate interval growth. Posterior placenta grade 1, not low lying, no abruption. Cervix length 4.9 cm, closed internal cervical os. Estimated weight 1051 g or 13 percentile. heart rate 176 bpm, borderline tachycardic. Electronically Signed: Nata Cisneros MD at 1:10 EST , Service support ,
== END ==
PROVIDERS: Obstetrics & Gynecology; PCP Family Medicine; Referring Provider Obstetrics & Gynecology; Visit Provider Obstetrics & Gynecology
DX: O09.90 Supervision of high risk pregnancy, unspecified, unspecified trimester (principal); Z13.1 Encounter for screening for diabetes mellitus
CPT/HCPCS: 76816; 82950; 85025

== ENCOUNTER → 2020-12-23 12:20 | Outpatient (CLI) | payer OTHER, SELFPAY ==
[2020-11-24 13:00] VITALS: BMI 38.0
[2020-12-22 13:12] VITALS: BMI 38.7
--- NOTE | 2020-12-23 12:21 | US_ITS ---
STUDY: SECOND AND THIRD TRIMESTER OBSTETRICAL ULTRASOUND - LIMITED REASON FOR EXAM: Female, 35 years old GROWTH LMP: 05/10/2020. PRIOR ULTRASOUND: Comparison is made with prior examination dated 11/23/2020. TECHNIQUE: Transabdominal TECHNICAL QUALITY: Adequate. FINDINGS: There is a single intrauterine fetus. The fetus is in a cephalic presentation. There is demonstrated cardiac activity with a heart rate of 144 bpm. There is a normal amniotic fluid volume. The largest amniotic fluid pocket measures 7.05 cm. The amniotic fluid index (RYAN) is 12.8 cm. The placenta is posterior in location and is not low lying. There are Grade 1 placental changes. The cervix measures 4.9 cm in length. BIOMETRY: BPD: 7.97 cm: 32 weeks, 0 days HC: 30.46 cm: 33 weeks, 6 days AC: 26.69 cm: 30 weeks, 5 days FL: 6.06 cm: 31 weeks, 3 days Age by LMP: 32 weeks, 3 days. SARTHAK by LMP: 02/14/2021. age by prior US: 32 weeks, 0 days. SARTHAK by prior US: 02/17/2021. age by current US: 32 weeks, 4 days. SARTHAK by current US: 02/13/2021. Estimated weight: 1740 grams, +/- 261 grams, 13.2 percentile. US/OB Limited With Biometrics IMPRESSION: Single live intrauterine gestation with a mean gestational age of 32 weeks. The measurements obtained today fall within the normal expected range. Electronically Signed: Alexandro Graham MD at 14:04 EST , Service support ,
== END ==
PROVIDERS: PCP Family Medicine; Referring Provider Nurse Practitioner Women's Health; Visit Provider Nurse Practitioner Women's Health
DX: O09.93 Supervision of high risk pregnancy, unspecified, third trimester (principal); Z3A.32 32 weeks gestation of pregnancy
CPT/HCPCS: 76816

== ENCOUNTER 2021-01-01 09:40 | Outpatient (RCR) | payer OTHER, SELFPAY ==
[2020-10-06 13:10] VITALS: BMI 35.5
[2020-12-22 13:12] VITALS: BMI 38.7
[2021-01-01 11:32] LABS: Absolute Neutrophil Count 7.7 X10^3/uL (2.0-7.7); Basophil# 0.02 X10^3/uL; Basophil% 0.2 % (0-1); Eosinophil# 0.13 X10^3/uL; Eosinophils% 1.4 % (0-5); Hemoglobin 11.1 g/dL (12.0-15.0); Lymphocyte % 11.7 % (19-41); Mean Corp Hgb Conc 31.7 g/dL (32-36); Mean Corpuscular Hgb 30.3 pg (27.0-32.0); Mean Corpuscular Volume 95.6 fL (81-99); Mean Platelet Vol. 10.5 fl (6.2-12.0); Monocyte# 0.41 X10^3/uL; Monocyte% 4.3 % (0-10); NRBC Flagged by Analyzer 0 % (0-5); Neutrophil # 7.69 X10^3/uL (2.7-7.7); Neutrophil % 81.4 % (47-70); Platelet Count 196 K/mm3 (150-450); RBC Distribution Width CV 14.6 % (11.6-14.6); RBC Distribution Width SD 50.4 fl (35.1-43.9); Red Blood Count 3.66 M/mm3 (4.2-5.4); White Blood Count 9.4 K/mm3 (4.4-11.0)
== END 2021-01-01 18:00 | disposition home or self-care (01) ==
LOC: LAB 09:40
PROVIDERS: Family Provider Family Medicine; PCP Family Medicine; Referring Provider Internal Medicine Gastroenterology; Visit Provider Internal Medicine Gastroenterology
DX: K51.90 Ulcerative colitis, unspecified, without complications (principal)
CPT/HCPCS: 36415; 85025

== ENCOUNTER 2021-01-08 07:30 | Outpatient (CLI) | payer OTHER, SELFPAY ==
[2021-01-05 13:04] VITALS: BMI 38.9
[2021-01-08 07:56] VITALS: BP 108/62; PULSE 111
[2021-01-08 07:59] VITALS: TEMP 36.6
[2021-01-08 08:02] VITALS: BMI 38.9
[2021-01-08] MEDS: DiphenhydrAMINE 25 MG Capsule PO (08:39)
[2021-01-08 09:08] VITALS: BP 108/63; PULSE 93; TEMP 37.2; O2SAT 96
[2021-01-08 09:09] VITALS: PULSE 102; O2SAT 96
[2021-01-08 09:16] LABS: Hematocrit 34.8 % (37-47); Hemoglobin 11.3 g/dL (12.0-15.0); Mean Corp Hgb Conc 32.5 g/dL (32-36); Mean Corpuscular Volume 95.3 fL (81-99); Mean Platelet Vol. 10.3 fl (6.2-12.0); Platelet Count 172 K/mm3 (150-450); RBC Distribution Width CV 14.6 % (11.6-14.6); RBC Distribution Width SD 50.1 fl (35.1-43.9); Red Blood Count 3.65 M/mm3 (4.2-5.4); White Blood Count 13.1 K/mm3 (4.4-11.0)
[2021-01-08] MEDS: Metoclopramide 10 MG Tablet PO (09:22)
[2021-01-08 09:29] LABS: AST(SGOT) 17 U/L (15-37); Alanine Aminotransfer ALT/SGPT 12 U/L (13-56); Creatinine, Serum 0.62 mg/dL (0.55-1.02); EST Glomerular Filtration Rate 118 mL/min (>60); Est Glom Filt Rate - Afr Amer 143 mL/min (>60); Uric Acid 3.5 mg/dL (2.6-6.0)
[2021-01-08 09:30] LABS: Protein:Creat Ratio 216 mg/g CRE (0-200)
[2021-01-08] MEDS: Acetaminophen/Butalbital/Caffe 1 Tablet PO (10:10)
--- NOTE | 2021-01-08 17:12 | OB.TRI.NOTE ---
- Problem List (1) Headache in Status: Acute (2) Supervision of high-risk Status: Acute Qualifiers: Comment: PRR SARTHAK 02/14/21 girl Tete Marcos Hayden Srini History of Present Illness Date of Service: 01/08/21 Was patient seen by the physician?: Yes Reason For Visit: headache Date of Service: 01/08/21 Final SARTHAK: 02/14/21 Gestational age: 34 Weeks and 5 Days History of Present Illness: 25-year-old at 34 weeks gestation presenting for headache. Reports headache started last night and was still present when she went to sleep. Reports is tried Tylenol multiple times without relief. Reports that headache is in the right middle posterior portion of her head and feels like her skull is exploding in this area. Denies blurred vision, chest pain, shortness of breath, lightheadedness, numbness, weakness, tingling Allergies azithromycin [From Zithromax] Allergy (Verified 01/05/21 13:05) Hives clindamycin Allergy (Verified 01/05/21 13:05) Rash sulfacetamide Allergy (Verified 01/05/21 13:05) Swelling - Pertinent Past Medical History Medical History: Past Medical History (Last Reviewed 01/05/21 @ 13:04 by Africa Shepherd) Anemia Ulcerative colitis Surgical History: Past Surgical History (Last Reviewed 01/05/21 @ 13:04 by Africa Shepherd) delivery delivered H/O colonoscopy S/P wrist surgery Laboratory Studies: Laboratory Tests 01/08/21 01/08/21 01/08/21 Range/Units 09:00 09:00 09:00 WBC 13.1 H (4.4-11.0) K/mm3 RBC 3.65 L (4.2-5.4) M/mm3 Hgb 11.3 L (12.0-15.0) g/dL Hct 34.8 L (37-47) % MCV 95.3 (81-99) fL MCH 31.0 (27.0-32.0) pg MCHC 32.5 (32-36) g/dL RDW Std Deviation 50.1 H (35.1-43.9) fl RDW Coeff of Melo 14.6 (11.6-14.6) % Plt Count 172 (150-450) K/mm3 MPV 10.3 (6.2-12.0) fl Creatinine 0.62 (0.55-1.02) mg/dL Estim Creat Clear Calc 110.40 ml/min Est GFR (MDRD) Af Amer 143 (>60) mL/min Est GFR (MDRD) Non-Af 118 (>60) mL/min Uric Acid 3.5 (2.6-6.0) mg/dL AST 17 (15-37) U/L ALT 12 L (13-56) U/L U Random Total Protein 20.0 H (<11.9) mg/dL Urine Creatinine 92.50 (NO RANGE EST.) mg/dL Protein/Creatinin Ratio 216 H (0-200) mg/g CRE Review of Systems Constitutional: Denies: Chills, Fever Eyes: Denies: Blurred vision, Double vision HEENT: Reports: Head Aches. Denies: Visual Changes Cardiovascular: Denies: Chest Pain, Edema Respiratory: Denies: Shortness of Breath Gastrointestinal: Denies: Abdominal Pain, Nausea, Vomiting Genitourinary: Denies: Dysuria Gynecological: Denies: Vaginal bleeding, Vaginal discharge, Vaginal itching Neurological: Reports: Headaches. Denies: Numbness, Tingling Physical Exam Vitals: Vital Signs Temp Pulse BP Pulse Ox 98.9 F 102 H 108/63 96 01/08/21 09:08 01/08/21 09:09 01/08/21 09:08 01/08/21 09:09 General: Alert, Oriented x3, Cooperative, No apparent distress, Well developed, Well nourished HEENT: Atraumatic, PERRLA, EOMI, Normocephalic Cardiovascular: Regular rate Lungs: Normal air movement Abdomen: Soft, Non Tender, Non-Distended, Gravid, Appropriate for Gestational Age Extremities:: No edema Neurological: Cranial nerves II-XII grossly intact, Neuro grossly intact NST - FHR Rate Baby A Variability:: Moderate Accelerations:: 15 x 15 Decelerations:: None NST Reactive:: Yes FHR Category:: Category I Uterine Activity:: Irregular Impression/Plan 35-year-old at 34 weeks gestation presenting with headache Headache -New onset last night, but persisted into this morning. Not resolved with Tylenol -Blood pressures normal -No symptoms concerning for preeclampsia. Headache -Preeclampsia labs done in normal -Initially treated with Reglan and Benadryl without relief in triage. Headache significantly improved after administering Fioricet. Patient discharged home in stable condition with prescription for Fioricet. Will follow up as an outpatient. Multi Select Codes - Visit Charges Office Visit/Consults: 70753 OV L3 Est - Urinary/Genital Urinary/Genital CPT Codes: 29286-36 non-stress test Interp
== END 2021-01-08 11:30 | disposition home or self-care (01) ==
LOC: WPOUT 07:39 → WP 07:39
PROVIDERS: Obstetrics & Gynecology; PCP Family Medicine; Referring Provider Obstetrics & Gynecology; Visit Provider Obstetrics & Gynecology
DX: O26.893 Other specified pregnancy related conditions, third trimester (principal); R51.9 Headache, unspecified; Z3A.34 34 weeks gestation of pregnancy
CPT/HCPCS: 36415; 59025; 59050; 82565; 82570; 84156; 84450; 84460; 84550; 85027; 99218; G0378

== ENCOUNTER 2021-01-09 10:35 | Emergency (ER) | payer OTHER, SELFPAY ==
[2021-01-08 08:02] VITALS: BMI 38.9
[2021-01-09 10:36] VITALS: BP 114/77; PULSE 127; RESP 18; TEMP 35.7; O2SAT 92; BMI 38.4
--- NOTE | 2021-01-09 11:09 | CT_ITS ---
STUDY: CT BRAIN WITHOUT CONTRAST REASON FOR EXAM: Female, 35 years old. left sided headache and head pain -- no trauma. please shield. RADIATION DOSAGE (If Supplied By Facility): CTDIvol = ( 44.99 ) mGy, DLP = ( 745.49 ) mGycm TECHNIQUE: Transaxial CT imaging of the brain was performed without administration of intravenous contrast material. Individualized dose optimization techniques were used for this CT. COMPARISON: No relevant priors. FINDINGS: Normal soft tissue structures. Normal calvarium. Normal size ventricles and extra-axial spaces for the patient''s age. Normal white matter tracts of the cerebral hemispheres. Normal basal ganglia and thalami. Normal brainstem. Normal cerebellum. There is no intracranial hemorrhage. There are no findings of an acute ischemic infarction. Partial opacification of the sphenoid sinuses consistent with sphenoid sinusitis. CT/Brain/Head without Contrast IMPRESSION: 1. Normal unenhanced CT scan of the brain. 2. Sphenoid sinusitis. Electronically Signed: Mike Cheng MD at 11:59 EST Tel , Service support ,
--- NOTE | 2021-01-09 11:10 | ED.VISSUMM ---
- ER Visit Summary Date of Service: 01/09/21 Chief Complaint: Left-sided head pain and headache History of Present Illness: The patient is a 35 F 35 weeks tomorrow. Patient's had gradual onset left-sided headache and had pain worse with movement since . No photophobia. No sonophobia. No nausea. No fever. No trauma. She has had headaches in the past when she is been but she said they are normal in the back of the head and nothing like this. She said the pain is about a 6 out of 10. She denies any neck pain. Denies any significant sinus drainage. No ear pain or sore throat. Yesterday she was brought into labor and delivery to rule out preeclampsia. Dr. Brannon Jansen of her [employer] group called me prior to the patient's work-up. Physical Examination: 35-year-old female no acute distress. Vital signs are stable and afebrile. Blood pressure is 114/77. She is afebrile. H EENT exam unremarkable. Pupils are unreactive laser motions are intact. No facial droop. Dentition posterior pharynx normal. No trouble opening closing her jaw. TMs are normal. No cheek TMJ tenderness. Scalp nontender. No signs of trauma. No reproducible pain. Neck nontender. No lymphadenopathy. Full range of motion. Full flexion-extension. No meningismus. Lungs clear to auscultation bilaterally. Heart regular rhythm no murmur. Abdomen soft nontender normal bowel sounds no peritoneal signs. Gravid uterus. Patient moving all 4 extremities. No edema. 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 Dorsi plantarflexion intact. Back nontender. Neurologically she is awake alert. Answering questions and following commands. NIH score is 0. Fingertip to nose within normal limits. No facial droop. Normal speech. Normal neurologic exam. Test Results: CT of the brain without contrast with the abdomen shielded due to her read by the radiologist and reviewed by me shows's sphenoid sinusitis. Otherwise no acute abnormality. I went over the CAT scan results with the patient and her . Repeat exam she is doing well at 12:50 PM. Headache is improved. Neurologic exam remains normal. Outpatient follow-up. Emergency Department Course and Treatment: Patient with an atypical nonreproducible left-sided head pain/headache. She is a normal exam. CAT scan of her brain without contrast to be obtained. She will be treated with IV Benadryl, IV fluids and IV Reglan. Treatment Plan: Tylenol for pain. Follow-up with your FOOD ADVISER. Return if worse. Disposition: Discharge Impression: Acute left-sided headache of uncertain etiology Third trimester This note was generated with [employer] dictation software. It may contain incorrect words, spelling, and punctuation that were not noted in review of the chart prior to signing ED Disposition - Plan for ED Patient: Referrals: Ovidio Mohamud MD [Primary Care Provider] -
[2021-01-09] MEDS: 0.9% Normal Saline 1,000 ML 1000 ML IV (11:30)
[2021-01-09] MEDS: DiphenhydrAMINE 50 MG/ML Syringe 25 MG IV (11:30)
[2021-01-09] MEDS: Metoclopramide 10 MG/2 ML Vial 5 MG IV (11:31)
[2021-01-09 11:55] VITALS: BP 104/67; PULSE 93; RESP 18
--- NOTE | 2021-01-09 12:57 | ED.DEP ---
ED Disposition - Plan for ED Patient: Disposition: Home or Assisted Living Instructions: ED Headache Unspecified Referrals: Ovidio Mohamud MD [Primary Care Provider] - 3-5 Days if not improving Iesha Chandra MD [STAFF PHYSICIAN] - 3-5 Days if not improving Additional Instructions: Your CAT scan just showed some mild sphenoid sinus congestion. Nothing we need to start you on antibiotics for treat at this time. Follow-up with your doctors if not improving. Tylenol for pain.
[2021-01-09 13:17] VITALS: BP 97/59; PULSE 101; RESP 16; RESP 18; O2SAT 98
== END 2021-01-09 13:18 | disposition home or self-care (01) ==
PROVIDERS: Emergency Provider Emergency Medicine; PCP Family Medicine
DX: O26.893 Other specified pregnancy related conditions, third trimester (principal); R51.9 Headache, unspecified; Z79.899 Other long term (current) drug therapy; Z3A.34 34 weeks gestation of pregnancy
CPT/HCPCS: 70450; 96361; 96374; 96375; 99283; J7030

== ENCOUNTER → 2021-01-18 | Outpatient (CLI) | payer OTHER, SELFPAY ==
[2021-01-18 09:58] VITALS: BMI 37.1
== END | disposition home or self-care (01) ==
LOC: LABSPEC 16:26
PROVIDERS: PCP Family Medicine; Referring Provider Obstetrics & Gynecology; Visit Provider Obstetrics & Gynecology
DX: Z34.93 Encounter for supervision of normal pregnancy, unspecified, third trimester (principal); Z3A.35 35 weeks gestation of pregnancy
CPT/HCPCS: 87081

== ENCOUNTER → 2021-01-22 08:51 | Outpatient (CLI) | payer OTHER, SELFPAY ==
[2021-01-09 10:36] VITALS: BMI 38.4
[2021-01-18 09:58] VITALS: BMI 37.1
--- NOTE | 2021-01-22 08:52 | US_ITS ---
STUDY: SECOND AND THIRD TRIMESTER OBSTETRICAL ULTRASOUND - LIMITED REASON FOR EXAM: Female, 35 years old Growth at 36 weeks LMP: 05/02/2020 PRIOR ULTRASOUND: TECHNIQUE: Transabdominal TECHNICAL QUALITY: Adequate. FINDINGS: There is a single intrauterine fetus. The fetus is in a cephalic presentation. There is demonstrated cardiac activity with a heart rate of 149 bpm. There is a normal amniotic fluid volume. The largest amniotic fluid pocket measures 4.1 cm. The amniotic fluid index (RYAN) is 14.5 cm. The placenta is posterior in location and is not low lying. There are Grade 1 placental changes. The cervix measures cm in length. BIOMETRY: BPD: 9.0 cm: 36 weeks, 4 days HC: 32.5 cm: 36 weeks, 6 days AC: 31.6 cm: 35 weeks, 4 days FL: 7.0 cm: 36 weeks, 0 days Age by LMP: 36 weeks, 5 days. SARTHAK by LMP: 02/14/2021. age by current US: 36 weeks, 1 days. SARTHAK by current US: 02/18/2021. Estimated weight: 2829 grams, +/- 424 grams, 36 percentile. Gender: US/OB Limited With Biometrics IMPRESSION: Living intrauterine of 36 weeks 1 day as described above. Electronically Signed: Mike Cheng MD at 7:46 EST Tel , Service support ,
== END ==
PROVIDERS: PCP Family Medicine; Referring Provider Obstetrics & Gynecology; Visit Provider Obstetrics & Gynecology
DX: O09.93 Supervision of high risk pregnancy, unspecified, third trimester (principal); Z3A.36 36 weeks gestation of pregnancy
CPT/HCPCS: 76816

== ENCOUNTER 2021-02-12 09:40 | Inpatient (IN) | payer OTHER, SELFPAY ==
[2020-12-22 13:12] VITALS: BMI 38.7
[2021-02-01 13:01] VITALS: BMI 37.9
[2021-02-12] VITALS (18 sets, daily range): BP systolic 96–117; BP diastolic 53–77; PULSE 82–101; RESP 16–18; TEMP 36.1–36.8; O2SAT 64–99; BMI 40.4
[2021-02-12] MEDS: Lactated Ringers 1,000 ML 999 ML IV (10:10)
[2021-02-12 10:24] LABS: Absolute Neutrophil Count 7.8 X10^3/uL (2.0-7.7); Basophil# 0.02 X10^3/uL; Basophil% 0.2 % (0-1); Eosinophil# 0.09 X10^3/uL; Hematocrit 36.8 % (37-47); Hemoglobin 11.9 g/dL (12.0-15.0); Lymphocyte % 11.7 % (19-41); Mean Corp Hgb Conc 32.3 g/dL (32-36); Mean Corpuscular Hgb 30.9 pg (27.0-32.0); Mean Corpuscular Volume 95.6 fL (81-99); Monocyte# 0.31 X10^3/uL; Monocyte% 3.3 % (0-10); NRBC Flagged by Analyzer 0 % (0-5); Neutrophil # 7.77 X10^3/uL (2.7-7.7); Neutrophil % 82.7 % (47-70); Platelet Count 208 K/mm3 (150-450); RBC Distribution Width CV 15.4 % (11.6-14.6); RBC Distribution Width SD 53.5 fl (35.1-43.9); Red Blood Count 3.85 M/mm3 (4.2-5.4); White Blood Count 9.4 K/mm3 (4.4-11.0)
[2021-02-12] MEDS: Lactated Ringers 1,000 ML 150 ML IV (11:26)
[2021-02-12] MEDS: Acetaminophen 500 MG Tablet 1000 MG PO ×3 (11:39→23:19)
[2021-02-12] MEDS: Sodium Citrate/Citric Acid 30 ML UDC PO (11:41)
[2021-02-12] MEDS: Cefazolin 2 GM in 0.9% Normal Saline 100 ML IV (11:47)
--- NOTE | 2021-02-12 11:48 | HP.PCM_ITS ---
- Problem List (1) 35 weeks gestation of Status: Acute Comment: electronic covid test ordered 01/15/21 (scheduled for 02/05/21 at 1350) (2) Anemia affecting Status: Acute Qualifiers: Comment: iron added (3) COVID-19 vaccine administered Status: Acute Comment: Received both vaccines. (4) Contraceptive management Status: Acute Comment: No PA for IUD insertion required Ref# [id number] (5) History of delivery affecting Status: Acute Comment: previous x 2, if spontaneous labor plan TOLAC if not then RLTCS at 40 weeks scheduled for 02/12 @ 12 (6) History of tetanus, diphtheria, and acellular pertussis booster vaccination (Tdap) Status: Acute Comment: 11/24/20 (7) Obesity affecting Status: Acute Qualifiers: Comment: 1 TM glucola nl, encourage healthy weight gain. Growth US at 28 wk:13%. Rpt 4 week (8) Status: Acute Qualifiers: Comment: genetic, carrier, and ntd screening declined. NL anatomy (9) Supervision of high-risk Status: Acute Qualifiers: Comment: PRR SARTHAK 02/14/21 girl Tete SURESH Hayden Marcos Srini History and Physical Date of Admission: 02/12/21 Intake Vital Signs 02/01/21 Height 5 ft 6 in 02/01/21 Weight: 235 lb 02/01/21 BMI 37.9 02/01/21 BP 112/70 Intake Visit Reasons: 38WK OB Motel Operator Required: No Is patient in pain?: No Allergies azithromycin [From Zithromax] Allergy (Verified 02/01/21 13:02) Hives clindamycin Allergy (Verified 02/01/21 13:02) Rash sulfacetamide Allergy (Verified 02/01/21 13:02) Swelling Medications Azathioprine [Imuran] 75 mg PO DAILY@0800 09/22/14 [History Confirmed 02/01/21] Mesalamine [Lialda] 2.4 gm PO DAILY 09/22/14 [History Confirmed 02/01/21] Vits [Prenatabs FA ] 1 tab PO DAILY 05/21/16 [History Confirmed 0 02/01/21] ferrous sulfate 325 mg (65 mg iron) tablet 325 mg PO DAILY 09/16/19 [History Confirmed 02/01/21] loratadine 10 mg tablet 10 mg PO DAILY 07/13/20 [History Confirmed 02/01/21] famotidine 20 mg tablet 10 mg PO DAILY 12/22/20 [History Confirmed 02/01/21] pngvkxtezf-chowhmjhlstyk-etakucga 50 mg-300 mg-40 mg capsule 1 cap PO Q8H PRN #5 cap 01/08/21 [Rx Confirmed 02/01/21] Valacyclovir HCl [Valacyclovir] 500 mg PO DAILY 01/09/21 [History Confirmed 02/01/21] Last Menstral Period: 05/10/20 Zika: Zika virus screening: Negative : No PFSH PFSH Medical History Anemia (Acute) Ulcerative colitis (Acute) Surgical History delivery delivered (Acute) H/O colonoscopy (Acute) S/P wrist surgery (Acute) Family History Grandfather Heart disease Cancer Mother Hypertension Grandmother Diabetes Social History (Updated 02/01/21 @ 14:[address] Johanna Post MD) Smoking Status: Never smoker Pregancy History 3 Elective abortions Hx Para 2 Spontaneous abortions Hx # Term Pregnancies Ectopic pregnancies Hx # Pregnancies Multiple births # of living children 2 Past Pregnancies Del. Date Name GA/Weeks Outcome Route Bth Weight Infant Gen Labor Lgth Anesthesia Del Locatn Provider FOB Unknown 2015 Hayden live - full term C-s ection Janeen Decker 06/29/18 Priti 41 live - full term C- section Female spinal [facility] Delivery Date: No notes to display Delivery Date: 06/29/18 Yanira Mendoza HPI 38WK OB : Details: GERDA NOYOLA is a 35 year old who presents for routine OB visit. OB Visit SARTHAK Calculator Estimated Delivery Date Method Current WG Current Estimate 02/14/21 LMP (Certain) 38w 1d Other Estimates 02/14/21 Ultrasound #1 38w 1d Expected Delivery Route/Plan TOLAC if active labor otherwise RLTCS w/ GP scheduled 02/12/21 Labor Preferences- : yes PP control planned: IUD special requests: [] Specific Issue/Plans flu vaccine: given tdap vaccine: yes rhogam: na LARC form signed: yes movement and labor precautions reviewed. Problem list reviewed and updated with the most current plan of care details and appropriate orders placed. Relevant counseling for the gestational age provided. Continue routine care and follow up unless otherwise noted in visit notes/problem list details Initial Weight: 198 lb Date EGA Weight BP Urine Prot Glucose FHR FuHt Pres Dilation Effaced St Visit Note 07/13/20 9w 1d 198 lb (+0 oz) 104/70 170 SM- no vb cramping CRL 2 cm cons with LMP 08/10/20 13w 1d 198 lb 4 oz (+4 oz) 100/76 Negative Negative 150 GP - no cramping, LOF, VB. Anatomy scan ordered. 09/08/20 17w 2d 202 lb (+4 lb) 104/72 Negative Negative 145 Sm- no vb lof good fm no ctx 10/06/20 21w 2d 207 lb (+9 lb) 120/58 145 SM- no vb lof good fm no regular ctx 11/03/20 25w 2d 213 lb (+15 lb) 105/71 Negative Negative 145 26 SM- no vb lof good fm no regular ctx discussed getting covid vaccine 11/24/20 28w 2d 221 lb 6 oz (+23 lb 6 oz) 102/60 Negative Negative 141 28 MH-No VB, LOF. Good FM. Tdap, Larc. Nl glucose. Anemia-add Fe. Rpt US for growth 4 wk 12/08/20 30w 2d 220 lb 4 oz (+22 lb 4 oz) 106/70 Negative Negative 146 30 MH-NO VB, LOF. Good FM. 2nd covid vaccine today. 12/22/20 32w 2d 226 lb (+28 lb) 118/73 Negative Negative 160 32 Sm- no vb of good fm nor egualr ctx 01/05/21 34w 2d 227 lb 4 oz (+29 lb 4 oz) 100/70 Negative Negative 150 34 SM- no vb lof good fm no regular ctx 01/18/21 36w 1d 230 lb (+32 lb) 110/62 Negative Negative 145 36 Cephalic 0 Sm- no vb lof good fm nor egular ctx MITCHELL resolved. gbs today 01/25/21 37w 1d 232 lb (+34 lb) 100/68 Negative 250 g/dL 140 37 Cephalic SM- no vb lof good fm no regular ctx 02/01/21 38w 1d 235 lb (+37 lb) 112/70 Negative Negative 130 38 Cephalic GP - no LOF, VB, regular ctx. Baby slightly less active over last 2 days. GP - no LOF, VB, regular ctx. Baby slightly less active over last 2 days. NST done and reactive. GP - no LOF, VB, regular ctx. Baby slightly less active over last 2 days. NST done and reactive. Declines COVID testing because not able to take off work. ACOG Second Trimester Second Trimester: Signs and Symptoms of Labor, Selecting a care provider, Reproductive Life Planning, Care Planning, Depression/Anxiety and Intimate Partner Violence; discussed Tobacco Cessation Diagnostics Diagnostics Diagnostics Hgb 11.3 g/dL (12.0-15.0) L 01/08/21 Hct 34.8 % (37-47) L 01/08/21 Details: HIV: Urine Culture: Sequential Screen: NIPT Screen: ROS Const Reports system reviewed and no additional complaints, except as docu Eyes Reports system reviewed and no additional complaints, except as docu ENT Reports system reviewed and no additional complaints, except as docu Card Reports system reviewed and no additional complaints, except as docu Resp Reports system reviewed and no additional complaints, except as docu GI Reports system reviewed and no additional complaints, except as docu Reports system reviewed and no additional complaints, except as docu, Denies abnormal vaginal bleeding, Denies painful urination, Denies pelvic pain, Denies vaginal discharge, Denies vaginal odor, Denies vaginal itching Musc Reports system reviewed and no additional complaints, except as docu Skin/Breast Reports system reviewed and no additional complaints, except as docu Neuro Yes system reviewed and no additional complaints, except as docu Psych Reports system reviewed and no additional complaints, except as docu Endo Reports system reviewed and no additional complaints, except as docu Exam Const General: cooperative, healthy appearing, comfortable, no acute distress, well developed, well groomed Nutritional Appearance: average body habitus, well nourished Orientation: alert, awake, oriented x3 HENMT Head: normal to inspection, normocephalic, atraumatic Eyes Pupils: PERRL, accommodation normal Resp Effort & Inspection: normal respiratory effort, able to speak in complete sentences, symmetric chest movement Cardio Rate: regular rate GI Palpation: soft, no guarding, no masses, nontender Skin General: no rashes or lesions noted, elasticity normal, turgor normal Neuro General: alert, awake, oriented x3 Cranial Nerves: CN's II-XI intact bilaterally, sense of smell intact, PERRL, accommodation normal, EOM intact bilaterally Speech: speech normal Gait: normal gait Psych Appearance: grossly normal, well kempt Mental Status: mental status grossly normal Mood: congruent mood Affect: normal affect Speech and Movement: speech and movement normal Attitude: cooperative Thought Process: normal Thought Content: normal Judgment: judgment good Office Procedures OB NST Non-Stress Test Indications for Monitoring: Yes decreased movement Heart Rate Baseline: 130 Heart Rate Variability: moderate Movement: Present Heart Rate Accelerations: Present Decelerations: Absent Contractions: Absent Impression: Yes Reactive Non-Stress Test Results POC Urinalysis 2 Dip (Clinic) Office Urine Glucose Negative Last Edit by Africa Shepherd on 02/01/21 13:09 Office Urine Protein Negative Last Edit by Africa Shepherd on 02/01/21 13:09 Assessment & Plan Problems 1. 35 weeks gestation of Z3A.35 electronic covid test ordered 01/15/21 (scheduled for 02/05/21 at 1350) 2. COVID-19 vaccine administered Z23 Received both vaccines. 3. History of tetanus, diphtheria, and acellular pertussis booster vaccination (Tdap) Z92.29 11/24/20 4. Anemia affecting in third trimester O99.013 iron added 5. Obesity affecting in third trimester O99.213 1 TM glucola nl, encourage healthy weight gain. Growth US at 28 wk:13%. Rpt 4 week 6. History of delivery affecting O34.219 previous x 2, if spontaneous labor plan TOLAC if not then RLTCS at 40 weeks scheduled for 02/12 @ 12 7. 38 weeks gestation of Z3A.38 genetic, carrier, and ntd screening declined. NL anatomy 8. Supervision of high risk in third trimester O09.93 PRR SARTHAK 02/14/21 girl Hayden Mendoza Srini UPDATE- I have seen the patient and performed any clinically relevant updates to the history and physical exam. Johanna Post MD
[2021-02-12] MEDS: Oxytocin 30 units/NS 500 ml 30 UNITS/500 ML IV.SOLN 167 UNITS IV (13:10)
--- NOTE | 2021-02-12 13:15 | PCM.OPRPT ---
Problem List (1) 35 weeks gestation of Status: Acute Comment: electronic covid test ordered 01/15/21 (scheduled for 02/05/21 at 1350) (2) Anemia affecting Status: Acute Qualifiers: Comment: iron added (3) COVID-19 vaccine administered Status: Acute Comment: Received both vaccines. (4) Contraceptive management Status: Acute Comment: No PA for IUD insertion required Ref# [id number] (5) History of delivery affecting Status: Acute Comment: previous x 2, if spontaneous labor plan TOLAC if not then RLTCS at 40 weeks scheduled for 02/12 @ 12 (6) History of tetanus, diphtheria, and acellular pertussis booster vaccination (Tdap) Status: Acute Comment: 11/24/20 (7) Obesity affecting Status: Acute Qualifiers: Comment: 1 TM glucola nl, encourage healthy weight gain. Growth US at 28 wk:13%. Rpt 4 week (8) Status: Acute Qualifiers: Comment: genetic, carrier, and ntd screening declined. NL anatomy (9) Supervision of high-risk Status: Acute Qualifiers: Comment: PRR SARTHAK 02/14/21 girl Tete SURESH Hayden Marcos Srini Delivery Classification: Scheduled Final SARTHAK: 02/14/21 Gestational age: 39 Weeks and 5 Days cardiology physician assistant: Rony Razo Type of Anesthesia:: Spinal Date of Procedure: 02/12/21 Pre-Operative Diagnosis: Term , history of , declines TOLAC Post-Operative Diagnosis: Same, extremely thin lower uterine segment Indications: 35-year-old G3, P2 at 39 weeks gestation admitted for scheduled repeat section. The risks, benefits, indications, and alternatives to the procedure were discussed with the patient and she voiced understanding and agreed to proceed. Indications for : Repeat Elective Description of Procedure: The patient is a at 39 weeks 2 weeks presented for repeat . Spinal anesthesia was placed without difficulty. Amaya catheter was placed. The patient was placed in the dorsal supine position with leftward tilt. Patient was prepped and draped in the normal sterile fashion. Pfannenstiel skin incision was made with the scalpel and carried through to the underlying layer of fascia with the scalpel. Fascia was nicked in the midline and the incision extended laterally. The rectus bellies were dissected off superiorly and inferiorly with out complication both sharply and bluntly. The peritoneum was entered digitally. The incision was stretched and a low transverse uterine incision was made with the scalpel. The infant's head was delivered atraumatically followed by the anterior and posterior shoulders without complication the rest of the infant delivered. The cord was clamped and cut and the infant was handed off to awaiting nurse. The placenta was delivered spontaneously immediately following and was noted to be intact and have a three-vessel cord. The uterus was exteriorized cleared of all clots and debris, and the incision was closed in a double layer closure using #1 Monocryl. The ovaries and fallopian tubes were noted to be within normal limits. The uterus was returned to the maternal abdomen and gutters were cleared of all clots and debris. The peritoneum was closed with 3-0 Monocryl in a running fashion. Gloves were changed prior to fascial closure. Fascia was closed with 0 PDS in a running fashion. Subcutaneous tissue was copiously irrigated and the skin was closed with 3-0 Monocryl in a subcuticular fashion. Mepilex dressing was applied without complication. Patient was taken to recovery in stable condition. It was discussed with the patient that based on the clinical information obtained during this encounter, combined with her history, at this time I would recommend repeat C-sections for future deliveries if further pregnancies are desired. Amniotic Membrane Rupture Type: Artificial Amniotic Fluid Description: Clear Placenta Disposition: [facility] Specimen(s) sent to pathology: Placenta Drain: Amaya to straight drain Fluids Replaced: 700 cc Cord Entanglement: Around neck x 1, loose - And around the body Cord Vessel Description: 3 Vessels Esitmated Blood Loss (ml): 500 cc Infant Gender: Female Delayed cord clamping: Yes Antibiotic Given: Ancef 2 grams IV x1 Pt instructed on risks of surgery: Bleeding, Anesthesia Risks, Infection, Injury to surrounding structure(s) including bowel and bladder Complications: None - Admit VTE Documentation VTE Present on Admission: No VTE Mechan Device Prophylaxis: SCD's VTE Pharm Prophylaxis ordered?: Yes Multi Select Codes - Urinary/Genital Urinary/Genital CPT Codes: 03696 Delivery [facility]
[2021-02-12] MEDS: Ketorolac 30 MG/ML Syringe IV ×2 (14:10→19:57)
[2021-02-12] MEDS: Lactated Ringers 1,000 ML 100 ML IV (16:44)
[2021-02-12] MEDS: Enoxaparin 40 MG/0.4 ML Syringe SC (23:19)
[2021-02-13 01:24] VITALS: PULSE 91; RESP 16; O2SAT 96
[2021-02-13] MEDS: 0.9% Saline Lock 10 ML Syringe IV ×2 (01:40→08:12)
[2021-02-13] MEDS: Ketorolac 30 MG/ML Syringe IV ×2 (01:40→08:11)
[2021-02-13 03:40] VITALS: PULSE 90; RESP 16; O2SAT 96
[2021-02-13 04:21] VITALS: BP 101/65; PULSE 81; RESP 16; TEMP 36.1; O2SAT 98
[2021-02-13 04:54] LABS: Hematocrit 34.7 % (37-47); Hemoglobin 11.2 g/dL (12.0-15.0); Mean Corp Hgb Conc 32.3 g/dL (32-36); Mean Corpuscular Volume 96.1 fL (81-99); Mean Platelet Vol. 10.5 fl (6.2-12.0); Platelet Count 182 K/mm3 (150-450); RBC Distribution Width CV 15.7 % (11.6-14.6); RBC Distribution Width SD 55.1 fl (35.1-43.9); Red Blood Count 3.61 M/mm3 (4.2-5.4); White Blood Count 10.8 K/mm3 (4.4-11.0)
[2021-02-13 06:21] VITALS: PULSE 98; RESP 16; O2SAT 98
[2021-02-13] MEDS: Acetaminophen 500 MG Tablet 1000 MG PO ×2 (06:29→14:02)
[2021-02-13 08:00] VITALS: BP 104/64; PULSE 87; RESP 16; TEMP 36.3; O2SAT 96
--- NOTE | 2021-02-13 08:07 | PN.OBGYN_ITS ---
Patient Problems: Active and Suspected Problems (Last Reviewed 02/01/21 @ 13:01 by fArica Shepherd) Contraceptive management (Acute) No PA for IUD insertion required Ref# [id number] 35 weeks gestation of (Acute) electronic covid test ordered 01/15/21 (scheduled for 02/05/21 at 1350) COVID-19 vaccine administered (Acute) Received both vaccines. History of tetanus, diphtheria, and acellular pertussis booster vaccination (Tdap) (Acute) 11/24/20 Anemia affecting (Acute) iron added History of delivery affecting (Acute) previous x 2, if spontaneous labor plan TOLAC if not then RLTCS at 40 weeks scheduled for 02/12 @ 12 Obesity affecting (Acute) 1 TM glucola nl, encourage healthy weight gain. Growth US at 28 wk:13%. Rpt 4 week (Acute) genetic, carrier, and ntd screening declined. NL anatomy Supervision of high-risk (Acute) PRR SARTHAK 02/14/21 girl Tete Marcos, Hayden Srini Subjective: Patient doing well without complaints. Tolerating PO. Ambulating and voiding without difficulty. Breast feeding well. Denies chest pain, shortness of breath, calf pain/swelling, fevers, chills, lightheadedness. Objective: Laboratory Tests 02/13/21 02/12/21 02/12/21 Range/Units 04:35 10:10 10:10 WBC 10.8 9.4 (4.4-11.0) K/mm3 RBC 3.61 L 3.85 L (4.2-5.4) M/mm3 Hgb 11.2 L 11.9 L (12.0-15.0) g/dL Hct 34.7 L 36.8 L (37-47) % MCV 96.1 95.6 (81-99) fL MCH 31.0 30.9 (27.0-32.0) pg MCHC 32.3 32.3 (32-36) g/dL RDW Std Deviation 55.1 H 53.5 H (35.1-43.9) fl RDW Coeff of Melo 15.7 H 15.4 H (11.6-14.6) % Plt Count 182 208 (150-450) K/mm3 MPV 10.5 11.0 (6.2-12.0) fl Immature Gran % (Auto) 1.100 H (0.0-0.9) % Neut % (Auto) 82.7 H (47-70) % Lymph % (Auto) 11.7 L (19-41) % Chester % (Auto) 3.3 (0-10) % Eos % (Auto) 1.0 (0-5) % Baso % (Auto) 0.2 (0-1) % Absolute Neuts (auto) 7.8 H (2.0-7.7) X10^3/uL Absolute Lymphs (auto) 1.10 (0.83-4.51) X10^3/uL Nucleated RBC % 0 (0-5) % Blood Type O POSITIVE Antibody Screen NEGATIVE - Physical Exam Vitals/I&O's: Vital Signs Temp Pulse Resp BP Pulse Ox 97 F L 98 16 101/65 98 02/13/21 04:21 02/13/21 06:21 02/13/21 06:21 02/13/21 04:21 02/13/21 06:21 Oxygen Delivery Method Room Air Weight: 235 lb 3.732 oz Body Mass Index (BMI) 40.4 Intake and Output for Last 24 Hours 02/11/21 02/12/21 02/13/21 23:59 23:59 23:59 Intake Total 3508.33 / 3508.33 Output Total 1700 / 1700 300 / 300 Balance 1808.33 / 1808.33 -300 / -300 General: Alert, Oriented x3, Cooperative, No apparent distress, Well developed, Well nourished HEENT: Atraumatic, PERRLA, EOMI, Normocephalic Neck: Supple, No JVD Lungs: Normal air movement Cardiovascular: Regular rate Abdomen: Soft, Non Tender, Non-Distended, - - fundus firm Extremities: No edema, No Calf Tenderness Neurological: Cranial nerves II-XII grossly intact, Neuro grossly intact Psych/Mental Status: Normal Affect, Appropriate Microbiology Past 72 Hours 02/12/21 11:25 Mucosa - Nose SARS-CoV-2 Antigen (Rapid) - Final Laboratory Results 02/12/21 10:10: WBC 9.4, RBC 3.85 L, Hgb 11.9 L, Hct 36.8 L, MCV 95.6, MCH 30.9, MCHC 32.3, RDW Std Deviation 53.5 H, RDW Coeff of Melo 15.4 H, Plt Count 208, MPV 11.0, Immature Gran % (Auto) 1.100 H, Neut % (Auto) 82.7 H, Lymph % (Auto) 11.7 L, Chester % (Auto) 3.3, Eos % (Auto) 1.0, Baso % (Auto) 0.2, Absolute Neuts (auto) 7.8 H, Absolute Lymphs (auto) 1.10, Nucleated RBC % 0 02/12/21 10:10: Blood Type O POSITIVE, Antibody Screen NEGATIVE 02/13/21 04:35: WBC 10.8, RBC 3.61 L, Hgb 11.2 L, Hct 34.7 L, MCV 96.1, MCH 31.0, MCHC 32.3, RDW Std Deviation 55.1 H, RDW Coeff of Melo 15.7 H, Plt Count 182, MPV 10.5 Current Medications Acetaminophen (Acetaminophen 500 Mg Tablet) 1,000 mg PO Q6 [facility] Last Admin: 02/13/21 06:29 Dose: 1,000 mg Documented by: Azathioprine (Azathioprine 50 Mg Tablet) 75 mg PO DAILY@0800 [facility] Bisacodyl (Bisacodyl 10 Mg Suppository) 10 mg RC UD PRN PRN Reason: If no BM Enoxaparin Sodium (Enoxaparin 40 Mg/0.4 Ml Syringe) 40 mg SC DAILY@0000 [facility] Last Admin: 02/12/21 23:19 Dose: 40 mg Documented by: Hydrocortisone (Hydrocortisone 2.5% Crm) 1 applic TOPICAL TID PRN PRN; Protocol PRN Reason: Discomfort Loratadine (Loratadine 10 Mg Tablet) 10 mg PO DAILY [facility] Mesalamine (Mesalamine 1.2 Gm Tablet) 2.4 gm PO DAILY [facility] Methylergonovine Maleate (Methylergonovine 0.2 Mg/Ml Ampul) 0.2 mg IM X1 PRN PRN Reason: Uterine Atony Naproxen (Naproxen 250 Mg Tablet) 500 mg PO Q8H [facility] Ondansetron HCl (Ondansetron 4 Mg/2 Ml Vial) 4 mg IV Q4H PRN PRN PRN Reason: Nausea Oxycodone HCl (Oxycodone 5 Mg Tablet) 5 - 10 mg PO Q4H PRN PRN PRN Reason: Pain Score 4-10 Prochlorperazine Edisylate (Prochlorperazine 10 Mg/2 Ml Vial) 10 mg IV Q6H PRN PRN PRN Reason: NAUSEA Senna/Docusate Sodium (Senna/Docusate Sodium 1 Tablet) 0 tablet PO DAILY EMMANUEL Simethicone (Simethicone 80 Mg Tablet) 80 mg PO PCHS PRN PRN Reason: Indigestion/stomach pain Sodium Chloride (0.9% Saline Lock 10 Ml Syringe) 5 - 15 ml IV UD PRN PRN Reason: SALINE FLUSH Last Admin: 02/13/21 01:40 Dose: 10 ml Documented by: Medical Necessity - Tobacco Use Smoking Status: Never smoker Assessment/Plan All Active Problems (Last Reviewed 02/01/21 @ 13:01 by Africa Shepherd) Contraceptive management (Acute) 35 weeks gestation of (Acute) COVID-19 vaccine administered (Acute) History of tetanus, diphtheria, and acellular pertussis booster vaccination (Tdap) (Acute) Anemia affecting (Acute) History of delivery affecting (Acute) Obesity affecting (Acute) (Acute) Supervision of high-risk (Acute) Acute bacterial conjunctivitis (Resolved) Decreased movement (Resolved) Dermatitis, unspecified (Resolved) Headache in (Resolved) History of section (Resolved) Marginal placenta previa (Resolved) (Resolved) Supervision of normal in first trimester (Resolved) Supervision of normal in third trimester (Resolved) URI, acute (Resolved) Unspecified contraceptive management (Resolved) s/p LTCS PPD # 1 1. routine post care 2. breast feeding- support given 3. rh positive 4. rubella immune
--- NOTE | 2021-02-13 08:09 | DCINST_ITS ---
Discharge Diet: No Restrictions Discharge Activity: May Not Drive - for 2 weeks or while taking narcotic pain meds., May Shower, May Take a Tub Bath - in 7 days. May resume sexual activity in: 4-6 weeks Lifting Restrictions: 20 pounds Additional Activity Instructions:: Nothing in the vagina for 4-6 weeks. You may return to work/school in 6 weeks. Call your doctor if your incision/area has: Continuous Slow Oozing, Sudden Increased Bleeding, Increased Pain/ Swelling, Increased Redness, Foul Smelling Discharge Call your doctor if you observe: Fever of 101 or Higher Suture Line Care: Avoid Pulling/Pushing, Avoid Pinching/Bending Additional Instructions: If you experience any of the following, contact your healthcare provider. * Bleeding that soaks a pad every hour for 2 hours * Fever 100.4 or higher * Unrelieved incision or abdominal pain * Swelling, redness, discharge or bleeding from your incision or episiotomy site * Your incision begins to separate * Problems urinating (including inability to urinate or burning while urinating). * Visual changes * Severe headache * Flu-like symptoms * Pain or redness in one of both of your breasts * Pain, warmth, tenderness or swelling in your legs, especially the calf area * Frequent nausea and vomiting * Symptoms of depression or anxiety If you experience any of the following, call 911 or go to the nearest Emergency Room. * Chest pain * Problems breathing * Seizure activity * Partial or complete paralysis of a body part, slurred speech, weakness or drooping of the face, or a sudden inability to walk or hold your balance Allergies/Adverse Reactions: Allergies azithromycin [From Zithromax] Allergy (Verified 02/12/21 10:32) Hives clindamycin Allergy (Verified 02/12/21 10:32) Rash sulfacetamide Allergy (Verified 02/12/21 10:32) Swelling Medications to take at Discharge Azathioprine [Imuran] 75 mg PO DAILY@0800 09/22/14 Mesalamine [Lialda] 2.4 gm PO DAILY 09/22/14 Vits [Prenatabs FA ] 1 tab PO DAILY 05/21/16 ferrous sulfate 325 mg (65 mg iron) tablet 325 mg PO DAILY 09/16/19 loratadine 10 mg tablet 10 mg PO DAILY 07/13/20 famotidine 20 mg tablet 10 mg PO DAILY 12/22/20 sxsxyrrilv-ikokgnrzbgknu-fsancmrm 50 mg-300 mg-40 mg capsule 1 cap PO Q8H PRN #5 cap 01/08/21 Valacyclovir HCl [Valacyclovir] 500 mg PO DAILY 01/09/21 Follow-Up: Call to make an appointment with your doctor for an incision check in 1-2 weeks. You will also need a 6 week post- follow up appointment. Test results from this visit will be discussed in further detail at your follow- up appointment, if applicable. Primary Care Physician: Ovidio Mohamud MD [Primary Care Provider] -
[2021-02-13] MEDS: azaTHIOprine 50 MG Tablet 75 MG PO (08:12)
[2021-02-13] MEDS: Senna/Docusate Sodium 1 Tablet PO (11:42)
[2021-02-13] MEDS: Mesalamine 1.2 GM Tablet 2.4 GM PO (11:42)
[2021-02-13] MEDS: Loratadine 10 MG Tablet PO (11:42)
[2021-02-13 14:00] VITALS: BP 112/72; PULSE 91; RESP 16; TEMP 36.2
[2021-02-13] MEDS: Naproxen 250 MG Tablet 500 MG PO (14:01)
== END 2021-02-13 17:35 | disposition home or self-care (01) | DRG 787 ==
PROVIDERS: Admitting Provider Obstetrics & Gynecology; PCP Family Medicine; Referring Provider Obstetrics & Gynecology; Visit Provider Obstetrics & Gynecology
PROC: (CPT 59514; principal; 2021-02-12 11:45)
DX: O34.211 Maternal care for low transverse scar from previous cesarean delivery (principal); K51.90 Ulcerative colitis, unspecified, without complications; O99.62 Diseases of the digestive system complicating childbirth; O69.81X0 Labor and delivery complicated by cord around neck, without compression, not applicable or unspecified; O99.02 Anemia complicating childbirth; D64.9 Anemia, unspecified; Z20.822 Contact with and (suspected) exposure to COVID-19; O99.214 Obesity complicating childbirth; E66.9 Obesity, unspecified; Z79.899 Other long term (current) drug therapy; Z3A.39 39 weeks gestation of pregnancy; Z37.0 Single live birth
CPT/HCPCS: 85025; 85027; 86850; 86900; 86901; 87426; 99218; J7120; A4216; G0378; J2405

== ENCOUNTER 2021-10-28 06:58 | Day surgery (SDC) | payer OTHER, SELFPAY ==
[2021-10-28 07:26] VITALS: BP 105/60; PULSE 73; RESP 18; TEMP 36.6; O2SAT 99; BMI 34.4
[2021-10-28] MEDS: Lactated Ringers 1,000 ML 15 ML IV (07:44)
--- NOTE | 2021-10-28 07:48 | PCM.HP.BLA ---
History and Physical Date of Admission: 10/28/21 GERDA NOYOLA, is a 35 F who presents to the office today for the diagnosis of ulcerative colitis. She has been on Lialda 1.2 g twice a day and azathioprine 75 mg once a day for several years. She has not stopped it in . She has been stable since 2017. She has no personal history or family history of PSC or PBC. She does have a strong family history of Crohn's disease. She has never had any abnormal liver function tests and has not had any abnormal imaging. She has no extraintestinal manifestations of ulcerative colitis including no skin abnormalities, arthralgia or arthritis, eye findings or any IBS symptoms. Previously seen by Dr. Ramesh for ulcerative colitis. Diagnosed at age 20. Well controlled azathioprine and Lialda. Last major flare three years after diagnosis and with start of azathioprine she has not had other flares. Last colonoscopy approximately 2017. ROS Const Constitutional: No anorexia, fatigue, fever(s), weight change or sleep problems Eyes Eyes: No change in vision ENT ENT: No abnormal hearing, difficulty swallowing, mouth lesions, tongue swelling or throat swelling Resp Respiratory: No cough or shortness of breath Cardio Cardiology: No chest pain at rest, chest pain with exertion, shortness of breath or dyspnea on exertion Gastro GI: No difficulty swallowing Genitourinary-Female: No difficulty urinating or burning urination Musc Musculoskeletal: No joint pain, joint swelling, muscle weakness or decreased muscle mass Skin Skin: No hair loss in leg, yellowing of the eye, itchy eyes, rash, skin ulcer or skin swelling Neuro Neurology: No abnormal hearing, abnormal movements, confusion, unsteady gait/balance or memory loss Psych Psychiatric: No anxiety, No confusion and No memory loss Endo Endocrine: No fatigue or weight change Aller/Imm Allergy/Immunologic: No itchy eyes, throat swelling or tongue swelling Zuhair/Lymp Hematologic/Lymphatic: No easy bleeding, easy bruising or enlarged lymph nodes Exam Const General: cooperative and comfortable Nutritional Appearance: average body habitus and well nourished HENMT Head: normal to inspection Ears: hearing grossly normal bilaterally Nose: external nose normal Face and sinus: normal facial exam Mouth: oral mucosae normal Throat: posterior oropharynx normal Eyes General: appearance normal, both eyes and all related structures Neck Neck: normal visual inspection Chest Chest palpation & inspection: normal inspection of the chest and normal palpation of entire chest wall Resp Effort & Inspection: normal respiratory effort Auscultation: Bilateral: Clear to Auscultation Cardio Palpation: normal PMI Rate: regular rate Rhythm: regular rhythm GI Inspection: normal to inspection Auscultation: normal bowel sounds Percussion: normal to percussion Palpation: no hepatosplenomegaly Skin General: no rashes or lesions noted Neuro General: patient alert Extrem General: normal to inspection Psych Affect: normal affect Quality Reporting Tobacco Screening ([facility] 138) Smoking Status: Never smoker Assessment and Plan Assessment and Plan (1) Ulcerative colitis: Status: Acute Plan - Dr. Casarez Friend, DO: She seems to be in remission at this time. She is not have any abdominal pain, diarrhea, lower GI bleeding. 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 She is very stable on her current regimen and we will not change this at this time. We will check an ESR, CRP and stool culture with C. difficile during a colonoscopy. She will need a baseline ultrasound of the liver and a CBC and CMP every year. I have re-examined the patient. There are no clinical changes since date of exam.
[2021-10-28 08:00] LABS: Internal QC Validated? YES +Cl - CLEAR BKGD; Pregnancy, Serum, hCG Quali. NEGATIVE Negative
--- NOTE | 2021-10-28 08:00 | COLBX_PTH ---
PATIENT: GERDA NOYOLA LOC: EN U#:[id number] AGE/SX: 35/F ROOM: RE10/28/[address]: Dr. Hermelindo Sanchez DO : 1985 BED: DIS: 10/28/2021 SPEC #: [id number] RECD: 10/28/21 11:34 STATUS: TABATHA REQ #: [id number] KINGA: 10/28/21 08:[address]: Hermelindo Sanchez DEPT: SURGICAL PATHOLOGY RECD BY: Tacho Kent ENTERED: 10/28/21 12:15 SP TYPE: COLON BX OT DR: Dr. Ovidio Mohamud MD Tissues: A - Ileum, NOS B - COLON BIOPSY C - Rectum, NOS D - Ascending colon Procedures: Surgery Specimen Level IV HEADER OPERATION: Colonoscopy (MAC) PRE-OP DIAGNOSIS: Ulcerative colitis TISSUE SUBMITTED: A ? Terminal ileum biopsy, B ? Random colonic biopsy, C ? Rectal biopsy, D ? Ascending polyp biopsy MICROSCOPIC DIAGNOSIS A. Terminal ileum, biopsy: No pathologic change. B. Colon, random biopsy: No pathologic change. C. Rectum, biopsy: Focal hyperplastic change. D. Ascending colon polyp, biopsy: Tubular adenoma. AM:roverto 10/29/2021 MICROSCOPIC DESCRIPTION Slides are reviewed. GROSS DESCRIPTION A - Received in fixative is one container labeled with the patient's name and designated terminal ileum biopsy. The specimen consists of multiple irregular fragments of light chan soft tissue that in aggregate measure 1 x 0.2 x 0.1 cm. The specimen is totally submitted in one cassette. B - Received in fixative is one container labeled with the patient's name and designated random colon biopsy. The specimen consists of multiple irregular fragments of light chan soft tissue that in aggregate measure 2 x 1.5 x 0.1 cm. The specimen is totally submitted in one cassette. C - Received in fixative is one container labeled with the patient's name and designated rectal biopsy. The specimen consists of multiple irregular fragments of light chan soft tissue that in aggregate measure 1 x 0.5 x 0.1 cm. The specimen is totally submitted in one cassette. D - Received in fixative is one container labeled with the patient's name and designated ascending colon polyp. The specimen consists of multiple irregular fragments of light chan soft tissue that in aggregate measure 0.5 x 0.5 x 0.1 cm. The specimen is totally submitted in one cassette. / AM:roverto 10/28/21 TC:5 CPT: 52361 x4
[2021-10-28 08:21] VITALS: BP 105/60; BP 92/63; PULSE 86; RESP 16; TEMP 36.6; O2SAT 97
[2021-10-28 08:25] VITALS: BP 105/60; BP 80/54; PULSE 69; RESP 16; O2SAT 96
--- NOTE | 2021-10-28 08:25 | OP.CCLET_ITS ---
07/20/2022 Ovidio Mohamud Re : Colonoscopy procedure for Janiya Landaverde Dear [place] This procedure was performed on October. My impressions and recommendations are as follows: Impressions : - One 5 mm polyp in the ascending colon, removed with a hot snare. Resected and retrieved. - Congested mucosa in the rectum. Biopsied. Recommendations : - Discharge patient to home. - Resume previous diet. - Continue present medications. - Await pathology results. - Repeat colonoscopy in 5 years for surveillance based on pathology results. - Return to GI office in 2 weeks. My findings are described in the full procedure note, which is enclosed. If I can be of further assistance, please feel free to contact me at . Sincerely, Hermelindo Sanchez, 10/28/2021 8:24:51 AM This report has been signed electronically.
--- NOTE | 2021-10-28 08:25 | OP.COLON_ITS ---
Patient Name: Janiya Landaverde Procedure Date: 10/28/2021 7:48 AM Date of : 1985 Age: 35 Procedure: Colonoscopy Indications: Ulcerative colitis Providers: Hermelindo Sanchez DO Medicines: See the Anesthesia note for documentation of the administered medications Patient Profile: This is a 35 year old female. Refer to note in patient chart for documentation of history and physical. Last Colonoscopy: 3 years ago. Complications: No immediate complications. Procedure: Pre-Anesthesia Assessment: - Prior to the procedure, a History and Physical was performed, and patient medications and allergies were reviewed. The patient is competent. The risks and benefits of the procedure and the sedation options and risks were discussed with the patient. All questions were answered and informed consent was obtained. Patient identification and proposed procedure were verified by the physician in the pre-procedure area. Mental Status Examination: alert and oriented. Airway Examination: normal oropharyngeal airway and neck mobility. Respiratory Examination: clear to auscultation. CV Examination: normal. Prophylactic Antibiotics: The patient does not require prophylactic antibiotics. Prior Anticoagulants: The patient has taken no previous anticoagulant or antiplatelet agents. After reviewing the risks and benefits, the patient was deemed in satisfactory condition to undergo the procedure. The anesthesia plan was to use moderate sedation / analgesia (conscious sedation). Immediately prior to administration of medications, the patient was re-assessed for adequacy to receive sedatives. The heart rate, respiratory rate, oxygen saturations, blood pressure, adequacy of pulmonary ventilation, and response to care were monitored throughout the procedure. The physical status of the patient was re-assessed after the procedure. After I obtained informed consent, the scope was passed under direct vision. Throughout the procedure, the patient's blood pressure, pulse, and oxygen saturations were monitored continuously. The Colonoscope was introduced through the anus and advanced to the terminal ileum. The colonoscopy was performed without difficulty. The patient tolerated the procedure well. The quality of the bowel preparation was good. Moderate Sedation: Moderate (conscious) sedation was administered by the endoscopy nurse and supervised by the endoscopist. The patient's oxygen saturation, heart rate, blood pressure and response to care were monitored. Total physician intraservice time was 15 minutes. Scope In: 8:01:19 AM Scope Withdrawal Time 0 hours 14 minutes 23 seconds Scope Out: 8:18:54 AM Total Procedure Duration Time 0 hours 17 minutes 35 seconds Findings: The perianal and digital rectal examinations were normal. A 5 mm polyp was found in the ascending colon. The polyp was sessile. The polyp was removed with a hot snare. Resection and retrieval were complete. Verification of patient identification for the specimen was done. Estimated blood loss was minimal. An area of mildly congested mucosa was found in the rectum. This was biopsied with a cold forceps for histology. Verification of patient identification for the specimen was done. Estimated blood loss was minimal. Random biopsies were taken in the colon and in the terminal ileum. The colon grossly appeared to be normal. No additional abnormalities were found on retroflexion. Impression: - One 5 mm polyp in the ascending colon, removed with a hot snare. Resected and retrieved. - Congested mucosa in the rectum. Biopsied. Recommendation: - Discharge patient to home. - Resume previous diet. - Continue present medications. - Await pathology results. - Repeat colonoscopy in 5 years for surveillance based on pathology results. - Return to GI office in 2 weeks. Procedure Code(s): --- Professional --- 24163, Colonoscopy, flexible; with removal of tumor(s), polyp(s), or other lesion(s) by snare technique 99213, 59, Colonoscopy, flexible; with biopsy, single or multiple 46144, 59, Moderate sedation services provided by the same physician or other qualified health home health caregiver performing the diagnostic or therapeutic service that the sedation supports, requiring the presence of an independent trained observer to assist in the monitoring of the patient's level of consciousness and physiological status; initial 15 minutes of intraservice time, patient age 5 years or older CPT copyright 2017 [employer]. All rights reserved. The codes documented in this report are preliminary and upon timber robber review may be revised to meet current compliance requirements. Hermelindo Sanchez DO 10/28/2021 8:24:51 AM This report has been signed electronically. Number of Addenda: 1 Note Initiated On: 10/28/2021 7:48 AM Addendum Number: 1 Addendum Date: 07/20/2022 7:18:09 AM MAC was used instead of moderate sedation for the patient. Hermelindo Sanchez DO 07/20/2022 7:18:13 AM This report has been signed electronically.
[2021-10-28 08:30] VITALS: BP 105/60; BP 89/62; PULSE 74; RESP 16; O2SAT 95
[2021-10-28 08:36] VITALS: BP 105/60; BP 86/63; PULSE 60; RESP 16; TEMP 36.2; O2SAT 97
[2021-10-28 08:54] VITALS: BP 105/60
== END 2021-10-28 09:02 ==
LOC: EN 06:59 → AC 06:59
PROVIDERS: Anesthesiology; PCP Family Medicine; Referring Provider Family Medicine; Visit Provider Internal Medicine Gastroenterology
PROC: 0DJD8ZZ Inspection of Lower Intestinal Tract, Via Natural or Artificial Opening Endoscopic (ICD-10-PCS; CPT 45378; principal; 2021-10-28 07:55)
DX: K51.90 Ulcerative colitis, unspecified, without complications (principal); K63.5 Polyp of colon; Z79.899 Other long term (current) drug therapy
CPT/HCPCS: 45380; 45385; 84703; 88305; J7120; J2405

== ENCOUNTER 2021-11-18 09:01 | Outpatient (CLI) | payer OTHER, SELFPAY ==
--- NOTE | 2021-11-18 09:03 | US_ITS ---
STUDY: ABDOMINAL ULTRASOUND - RIGHT UPPER QUADRANT REASON FOR VISIT: Female, 36 years old . Immunosuppressive therapy. TECHNIQUE: Ultrasound evaluation of the right upper quadrant was performed with real-time and static han-scale imaging. TECHNICAL QUALITY: Adequate. COMPARISON: None. FINDINGS: Liver: The liver measures 15.7 cm. There is normal echogenicity of the liver. The bile ducts are within normal limits. There is hepatic color flow. The direction of portal flow is hepatopetal. There is no demonstrated mass lesion. Gallbladder: Normal distended gallbladder. The gallbladder wall measures 2 mm. There is a negative sonographic ''s sign. There is no pericholecystic fluid. There are no gallstones. Common Bile Duct (C.B.D.): The common bile duct measures 4 mm. Pancreas: Normal size of the head, body and tail of the pancreas. There is normal echogenicity of the pancreas. There is no demonstrated pancreatic mass or cyst. Right Kidney: Normal size of the right kidney. The right kidney measures 10.5 cm x 5.1 cm x 3.9 cm. Normal renal cortex. The right cortex measures 1.5 cm. There is no demonstrated renal mass or cyst. There is no right hydronephrosis. US/Liver IMPRESSION: Normal right upper quadrant ultrasound examination. Electronically Signed: Alexandro Graham MD at 11:48 EST , Service support ,
== END 2021-11-18 23:59 | disposition short-term general hospital (02) ==
LOC: US 09:01
PROVIDERS: PCP Family Medicine; Referring Provider Internal Medicine Gastroenterology; Visit Provider Internal Medicine Gastroenterology
DX: Z09 Encounter for follow-up examination after completed treatment for conditions other than malignant neoplasm (principal); Z92.25 Personal history of immunosuppression therapy
CPT/HCPCS: 76705

== ENCOUNTER 2021-11-19 09:11 | Outpatient (CLI) | payer OTHER, SELFPAY ==
[2021-11-19 09:59] LABS: Erythrocyte Sedimentation Rate 19 mm/hr (0-30)
== END 2021-11-19 23:59 | disposition short-term general hospital (02) ==
LOC: LAB 09:13
PROVIDERS: PCP Family Medicine; Referring Provider Internal Medicine Gastroenterology; Visit Provider Internal Medicine Gastroenterology
DX: K51.90 Ulcerative colitis, unspecified, without complications (principal)
CPT/HCPCS: 36415; 85652; 86140

== ENCOUNTER → 2022-03-23 | Outpatient (CLI) | payer OTHER, SELFPAY ==
[2022-03-23 10:10] LABS: Absolute Lymphocyte Count 1.13 X10^3/uL (0.83-4.51); Absolute Neutrophil Count 5.2 X10^3/uL (2.0-7.7); Basophil# 0.06 X10^3/uL; Basophil% 0.8 % (0-1); Eosinophil# 0.12 X10^3/uL; Eosinophils% 1.7 % (0-5); Hematocrit 36.8 % (37-47); Hemoglobin 11.9 g/dL (12.0-15.0); Lymphocyte # 1.13 X10^3/ul (0.83-4.51); Lymphocyte % 15.9 % (19-41); Mean Corp Hgb Conc 32.3 g/dL (32-36); Mean Corpuscular Hgb 30.3 pg (27.0-32.0); Mean Corpuscular Volume 93.6 fL (81-99); Mean Platelet Vol. 10.2 fl (6.2-12.0); Monocyte# 0.53 X10^3/uL; Monocyte% 7.5 % (0-10); NRBC Flagged by Analyzer 0 % (0-5); Neutrophil # 5.24 X10^3/uL (2.7-7.7); Neutrophil % 73.8 % (47-70); Platelet Count 272 K/mm3 (150-450); RBC Distribution Width CV 13.8 % (11.6-14.6); RBC Distribution Width SD 47.7 fl (35.1-43.9); Red Blood Count 3.93 M/mm3 (4.2-5.4); White Blood Count 7.1 K/mm3 (4.4-11.0)
[2022-03-23 10:21] LABS: Erythrocyte Sedimentation Rate 12 mm/hr (0-30)
== END | disposition home or self-care (01) ==
PROVIDERS: PCP Family Medicine; Referring Provider Internal Medicine Gastroenterology; Visit Provider Internal Medicine Gastroenterology
DX: K51.90 Ulcerative colitis, unspecified, without complications (principal)
CPT/HCPCS: 36415; 85025; 85652; 86140

== ENCOUNTER → 2022-06-03 | Outpatient (CLI) | payer OTHER, SELFPAY ==
[2022-06-08 16:29] LABS: HPV APTIMA, High Risk Negative (Negative)
== END | disposition home or self-care (01) ==
LOC: LABSPEC 17:05
PROVIDERS: PCP Family Medicine; Referring Provider Obstetrics & Gynecology; Visit Provider Obstetrics & Gynecology
DX: Z12.4 Encounter for screening for malignant neoplasm of cervix (principal)
CPT/HCPCS: 87624; 88175; G0145

== ENCOUNTER → 2022-07-11 | Outpatient (CLI) | payer OTHER, SELFPAY ==
[2022-07-11 08:49] LABS: CRP 9.31 mg/L (0.0-3.0)
[2022-07-14 09:53] LABS: Calprotectin, Stool <16 ug/g (0-120)
== END | disposition home or self-care (01) ==
PROVIDERS: PCP Family Medicine; Referring Provider Internal Medicine Gastroenterology; Visit Provider Internal Medicine Gastroenterology
DX: K51.90 Ulcerative colitis, unspecified, without complications (principal)
CPT/HCPCS: 36415; 83993; 86140

== ENCOUNTER 2022-07-26 16:39 | Emergency (ER) | payer OTHER, SELFPAY ==
[2022-07-26 16:40] VITALS: BP 130/88; PULSE 103; RESP 18; TEMP 36.4; O2SAT 97; BMI 35.5
--- NOTE | 2022-07-26 17:35 | US_ITS ---
STUDY: FIRST TRIMESTER OBSTETRICAL ULTRASOUND REASON FOR EXAM: Female, 36 years old abdominal pain -- hcg on 07/26/22: 5,066 LMP: TECHNIQUE: Transvaginal TECHNICAL QUALITY: Adequate. PRIOR ULTRASOUND: None. FINDINGS: There is visualization of a single gestational sac in a normal intrauterine position. The mean sac diameter (MSD) measures 8.2 mm, indicating an estimated gestational age (EGA) of 5 weeks, 4 days. The gestational sac shape is within normal limits. There is a visualized yolk sac. The yolk sac measures 1.7 mm. The placenta is non-visualized. pole not visualized. IUD noted which appears to be abnormally placed and low-lying. The estimated gestation age (EGA) by LMP is 6 weeks, 2 days. The estimated date of delivery (SARTHAK) by LMP is 03/19/2023. The estimated gestation age (EGA) by US is 5 weeks, 4 days. The estimated date of delivery (SARTHAK) by US is 03/24/2023. The uterus measures 9.5 x 5.9 x 5.3 cm. Small fibroid measuring 7 x 9 x 8 mm. The cervix is closed. The right ovary measures 4.1 x 2.6 x 1. There is no right ovarian cyst. There is no visualized right adnexal mass or complex lesion. The left ovary measures 4.1 x 3.5 x 3.2 cm. There is a cyst measuring 3.3 x 3 x 2.8 cm likely corpus luteum.. There is a heterogeneous structure measuring 2.5 x 3 x 2.3 cm of uncertain etiology There is moderate fluid in the cul de sac. US/Transvaginal w/Preg US IMPRESSION: Early intrauterine gestational sac noted within the uterus without definitive evidence for pole at this time approximately 5-6 weeks gestational age. Small left ovarian cyst likely corpus luteum. Malpositioned IUD which appears to terminate in the lower uterine segment Heterogeneous structure within the left adnexa and fluid in the cul-de-sac makes it difficult to definitively exclude ectopic . Recommend clinical correlation and follow-up studies Electronically Signed: Jonathon Olivas MD at 19:33 EDT ,
--- NOTE | 2022-07-26 17:39 | ED.VIS.FEGU ---
HPI HPI - Female History of Present Illness Chief Complaint: Narrative Narrative: 36-year-old female presenting with chief complaint of . She states that she has an IUD in Dr. Chandra sent her here to rule out ectopic . Patient has not had any vaginal spotting. She has not having any pelvic pain. She states I think I can feel my uterus. She states it feels as if she is . She had an outpatient hCG done today which was greater than 5000. She is O+ blood type. She has nausea but no vomiting. No fevers or chills. PFSH PFSH Medical History Anemia Heartburn Non-smoker Personal history of colonic polyps Syncope Ulcerative colitis Wears contact lenses Home Medications ferrous sulfate 325 mg (65 mg iron) tablet 325 mg PO DAILY anemia 09/16/19 [History Last Taken 02/11/21] loratadine 10 mg tablet (Claritin) 10 mg PO DAILY allergies 07/13/20 [History Last Taken 02/12/21] azathioprine 100 mg tablet 100 mg PO DAILY #30 tabs 02/09/22 [Rx Last Taken Unknown] valacyclovir 500 mg tablet (Valtrex) 500 mg PO DAILY herpes #90 tabs 06/15/22 [Rx Last Taken Unknown] lactobacillus combination no.4 3 billion cell capsule (Probiotic) 0 mmu cells PO DAILY 07/26/22 [History Last Taken Unknown] multivitamin 1 tab PO DAILY 07/26/22 [History Last Taken Unknown] Allergy/AdvReac Type Severity Reaction Status Date / Time azithromycin [From Zithromax] Allergy Hives Verified 07/26/22 16:42 clindamycin Allergy Rash Verified 07/26/22 16:42 sulfacetamide Allergy Swelling Verified 07/26/22 16:42 Family History Grandfather Heart disease Cancer Mother Hypertension Grandmother Diabetes Surgical History delivery delivered H/O colonoscopy S/P wrist surgery Social History Smoking Status: Never smoker alcohol intake: never substance use type: does not use caffeine: No frequency: 3-4 times per week seatbelt use: always do you feel safe at home: Yes 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 Constitutional Constitutional ED: Denies chills or fever(s) Eyes Eyes: Denies change in vision or diplopia ENT ENT ED: Denies rhinorrhea or sore throat Cardiovascular Cardiovascular: Denies chest pain or palpitations Respiratory/Chest Respiratory/Chest: Denies cough or dyspnea Gastrointestinal Gastrointestinal: Denies abdominal pain or constipation Genitourinary Genitourinary ED: Denies dysuria or hematuria Musculoskeletal Musculoskeletal: Denies arthralgias or myalgias Integumentary Denies Abrasions Neurologic Neurologic: Denies headache(s) or paresthesias Psychiatric Psychiatric: Denies anxiety or depression EXAM Physical Exam Const Vital Signs: 07/26/22 16:40 07/26/22 18:51 07/26/22 20:00 Temperature 97.5 F L Temperature Source Temporal Pulse Rate 103 H 83 Respiratory Rate 18 16 18 Blood Pressure 130/88 H 107/76 Blood Pressure Mean 102 86 Pulse Ox 97 98 Oxygen Delivery Method Room Air Room Air 07/26/22 20:57 Temperature Temperature Source Pulse Rate 88 Respiratory Rate 16 Blood Pressure 120/82 H Blood Pressure Mean 94 Pulse Ox 96 Oxygen Delivery Method Room Air Positive well nourished General Appearance ED: NAD; Negative for pallor HEENT Reports TM's clear and moist mucous membranes Tympanic Membrane ED: Yes TM's clear Eyes PERRL General Eye ED: Negative for pale conjunctiva or scleral icterus Resp normal respiratory effort Cardio regular rate and regular rhythm GI normal to inspection, nondistended, normoactive bowel sounds Neuro oriented x3 and CN's II-XII intact bilaterally Sensorium / Orientation: alert Motor Exam: strength 5/5 throughout Psych mental status grossly normal Skin no rashes or lesions noted General Skin Exam: Negative for jaundice or pallor MDM MDM MDM Narrative Medical decision making narrative: Patient had hCG done today which is 5066. She is O+. She is not had any vaginal spotting or bleeding. No vaginal complaints at all. No urinary complaints. She does state that she feels as feels like previous pregnancies. She is not having any adnexal pain or flank pain. Patient was not trying to get and she does an IUD. She was sent in to rule out ectopic . I do not believe she needs any other blood work. I did obtain him an obstetric ultrasound which shows early intrauterine gestational sac within the uterus without definitive pole at about 5 to 6 weeks gestational age. There is also a small ovarian cyst likely corpus luteum. The IUD is malpositioned and appears to terminate in the lower uterine segment. There is a heterogeneous structure in the left adnexa and fluid in the cul-de-sac which the radiologist says it makes it difficult to exclude ectopic . I spoke with Dr. Amaya who reviewed the film and she did not see any significant fluid in the cul-de-sac. She recommended not give any medication such as methotrexate as the other intrauterine may be viable and this may not be ectopic. I spoke with the patient about this and she does not want to terminate the if she does not have an ectopic . Dr. Amaya will make close follow-up with her and monitor. Return precautions were discussed. Patient discharged home in stable condition. Impression: 1. First trimester Radiography Diagnostic Testing: Clinical Impression(s) from Imaging Studies Obstetrics Ultrasound 07/26/22 17:35 IMPRESSION: Early intrauterine gestational sac noted within the uterus without definitive evidence for pole at this time approximately 5-6 weeks gestational age. Small left ovarian cyst likely corpus luteum. Malpositioned IUD which appears to terminate in the lower uterine segment Heterogeneous structure within the left adnexa and fluid in the cul-de-sac makes it difficult to definitively exclude ectopic . Recommend clinical correlation and follow-up studies Electronically Signed: Jonathon Olivas MD at 19:33 EDT , Discharge Plan Triage Chief Complaint: ED Provider: Jamshid De Luna Dx/Rx/DC Orders Instructions: 1st Trimester Prescriptions: No Action ferrous sulfate 325 mg (65 mg iron) tablet 325 mg PO DAILY loratadine [Claritin] 10 mg tablet 10 mg PO DAILY azathioprine 100 mg tablet 100 mg PO DAILY Qty: 30 1RF multivitamin Tablet 1 tab PO DAILY Probiotic 3 billion cell Capsule 0 mmu cells PO DAILY Rx Instructions: administer with a meal valacyclovir [Valtrex] 500 mg tablet 500 mg PO DAILY Qty: 90 3RF Primary Care Provider: Ovidio Mohamud Referrals: Ovidio Mohamud MD [Primary Care Provider] - Disposition Disposition: Home, Self Care Discharge Date/Time: 07/26/22 21:13
[2022-07-26 18:51] VITALS: BP 107/76; PULSE 83; RESP 16; O2SAT 98
[2022-07-26 20:00] VITALS: RESP 18
[2022-07-26 20:57] VITALS: BP 120/82; PULSE 88; RESP 16; O2SAT 96
== END 2022-07-26 21:13 | disposition home or self-care (01) ==
PROVIDERS: Emergency Provider Student in an Organized Health Care Education/Training Program; PCP Family Medicine; Visit Provider Student in an Organized Health Care Education/Training Program
DX: O9A.211 Injury, poisoning and certain other consequences of external causes complicating pregnancy, first trimester (principal); T83.32XA Displacement of intrauterine contraceptive device, initial encounter; O34.81 Maternal care for other abnormalities of pelvic organs, first trimester; N83.202 Unspecified ovarian cyst, left side; Z3A.01 Less than 8 weeks gestation of pregnancy; Z79.899 Other long term (current) drug therapy
CPT/HCPCS: 76817; 99282; J7030; A4216

== ENCOUNTER → 2022-07-26 | Outpatient (CLI) | payer OTHER, SELFPAY ==
[2022-07-26 14:37] LABS: Homocysteine 5.3 umol/L (3.2-10.7)
[2022-07-26 15:16] LABS: Erythrocyte Sedimentation Rate 10 mm/hr (0-30)
[2022-07-26 15:22] LABS: CRP 9.34 mg/L (0.0-3.0); Ferritin 8 ng/mL (8-252); Iron 28 ug/dL (50-170); Iron Binding Capacity,Total 311 ug/dL (250-450); LDH 191 U/L (84-246)
[2022-07-26 15:30] LABS: hCG Titer Quant., Serum 5066 mIU/mL (1-3)
[2022-07-28 12:08] LABS: Anti-Centromere B Ab <0.2 AI (0.0-0.9); Anti-Chromatin <0.2 AI (0.0-0.9); Anti-Jo <0.2 AI (0.0-0.9); Anti-Scleroderma-70 AB <0.2 AI (0.0-0.9); RNP Ab <0.2 AI (0.0-0.9); SJOGREN'S Anti-SS-A test < 0.2 AI (0.0-0.9); SJOGREN'S Anti-SS-B test < 0.2 AI (0.0-0.9); Smith Ab <0.2 AI (0.0-0.9)
[2022-07-28 16:09] LABS: Endomysial Antibody IgA Negative (Negative)
[2022-07-28 16:12] LABS: Anti-dsDNA Ab <1 IU/mL (0-9)
[2022-07-28 16:34] LABS: Immunoglobulin A 124 mg/dL (87-352); t-Transglutaminase IgA <2 U/mL (0-3)
[2022-08-02 00:06] LABS: Cytoplasmic Ab (C-ANCA) <1:20 titer (Neg:<1:20); Immunoglobulin A 124 mg/dL (87-352); Immunoglobulin E < 2 IU/mL (6-495); Immunoglobulin G 795 mg/dL (586-1602); Immunoglobulin M 106 mg/dL (26-217)
[2022-08-02 15:17] LABS: Perinuclear Ab (P-ANCA) <1:20 titer (Neg:<1:20)
== END | disposition home or self-care (01) ==
LOC: LAB 13:46
PROVIDERS: Obstetrics & Gynecology; PCP Family Medicine; Visit Provider Internal Medicine Gastroenterology
DX: K51.90 Ulcerative colitis, unspecified, without complications (principal); N91.2 Amenorrhea, unspecified
CPT/HCPCS: 36415; 82728; 82784; 82785; 83090; 83516; 83540; 83550; 83615; 84702; 85652; 86140; 86225; 86235; 86255; 86256

== ENCOUNTER → 2022-07-28 | Outpatient (CLI) | payer OTHER, SELFPAY ==
[2022-07-28 10:39] LABS: hCG Titer Quant., Serum 9268 mIU/mL (1-3)
== END | disposition home or self-care (01) ==
LOC: LAB 09:25
PROVIDERS: PCP Family Medicine; Referring Provider Obstetrics & Gynecology; Visit Provider Obstetrics & Gynecology
DX: O20.0 Threatened abortion (principal)
CPT/HCPCS: 36415; 84702

== ENCOUNTER 2022-07-29 11:16 | Observation (INO) | payer OTHER, SELFPAY ==
[2022-07-29] VITALS (7 sets, daily range): BP systolic 93–115; BP diastolic 59–83; PULSE 75–103; RESP 14–18; TEMP 36.2–37.1; O2SAT 96–100; BMI 35.4
[2022-07-29 08:46] LABS: Hematocrit 36.8 % (37-47); Hemoglobin 11.7 g/dL (12.0-15.0); Mean Corp Hgb Conc 31.8 g/dL (32-36); Mean Corpuscular Hgb 29.3 pg (27.0-32.0); Mean Corpuscular Volume 92.2 fL (81-99); Mean Platelet Vol. 9.7 fl (6.2-12.0); Platelet Count 294 K/mm3 (150-450); RBC Distribution Width CV 14.7 % (11.6-14.6); RBC Distribution Width SD 49.9 fl (35.1-43.9); Red Blood Count 3.99 M/mm3 (4.2-5.4); White Blood Count 6.7 K/mm3 (4.4-11.0)
[2022-07-29] MEDS: Lactated Ringers 1,000 ML 125 ML IV ×2 (09:03→11:00)
[2022-07-29] MEDS: Cefotetan 2 GM in 0.9% NS 100 ML IV (09:50)
--- NOTE | 2022-07-29 11:20 | HP.PCM_ITS ---
History and Physical Date of Admission: 07/29/22 MR#:? [id number] Acct: [id number] Name: GERDA NOYOLA Rep #: [id number] :? 1985 36 From:? Qian Kaiser DO PCP: Dr. Ovidio Mohamud MD ? Status: PRE CLI Location: History and Physical Date of Admission: 07/28/22 MR#: [id number] Acct: [id number] Name:? GERDA NOYOLA Rep #: [id number] : 1985 ? ? Provider: Dr. Qian Kaiser, DO Age/Sex:? 36/F ? ? Location: [facility] [place] Status: Signed Intake Vital Signs ?? 07/26/2216:40? 07/27/2211:45? 07/27/2211:46 Height? 5 ft 4 in? 5 ft 4 in? 5 ft 4 in Weight:? ?? 206 lb 8 oz? ? BMI? ?? 35.4? ? BP? ?? 103/70? ? Intake Visit Reasons:?u/s follow up Store Operations Specialist Required: No Is patient in pain?: No Allergies azithromycin [From Zithromax] Allergy (Verified 07/27/22 11:45) Hivesclindamycin Allergy (Verified 07/27/22 11:45) Rashsulfacetamide Allergy (Verified 07/27/22 11:45) Swelling Medications ferrous sulfate 325 mg (65 mg iron) tablet 325 mg PO DAILY anemia 09/16/19 [History Confirmed 07/27/22] loratadine 10 mg tablet (Claritin) 10 mg PO DAILY allergies 07/13/20 [History Confirmed 07/27/22] azathioprine 100 mg tablet 100 mg PO DAILY #30 tabs 02/09/22 [Rx Confirmed 07/27/22] valacyclovir 500 mg tablet (Valtrex) 500 mg PO DAILY herpes #90 tabs 06/15/22 [Rx Confirmed 07/27/22] lactobacillus combination no.4 3 billion cell capsule (Probiotic) 0 mmu cells PO DAILY 07/26/22 [History Confirmed 07/27/22] multivitamin 1 tab PO DAILY 07/26/22 [History Confirmed 07/27/22] Post menopausal: No Patient : Yes : No PFSH Medical History? Anemia Heartburn Non-smoker Personal history of colonic polyps Syncope Ulcerative colitis Wears contact lenses Surgical History? delivery delivered H/O colonoscopy S/P wrist surgery Family History? Grandfather Heart disease CancerMother HypertensionGrandmother Diabetes Social History? Smoking Status:? Never smoker alcohol intake:? never substance use type:? does not use caffeine:? No frequency:? 3-4 times per week seatbelt use:? always do you feel safe at home:? 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 She consents to a pelvic exam with rem History ? 3? Elective abortions? Hx Para? 2? Spontaneous abortions? Hx # Term Pregnancies? Ectopic pregnancies? Hx # Pregnancies? Multiple births? # of living children? 3 Past Pregnancies Del. Date? Name? GA/Weeks? Outcome? Route? Bth Weight? Gen? Labor Lgth? Anesthesia? Del Locatn? Provider FOB Unknown? 2015 [place]? ?? live - full term? [place] ? [facility] ? 06/29/18? Priti? 41? live - full term? Female? ?? spinal? [facility] ? [facility] ? 02/12/21? Tete? 39? live - full term? Female? [facility] ? [facility] ? Delivery Date: 06/29/18? Last Updated by: Yanira Romano ? ? ? 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 ? ? Delivery Date: 02/12/21? Last Updated by: Екатерина Ding ? ? ? Scheduled RLTCS ROS Const ROS Unobtainable: All systems reviewed & are unremarkable except as noted in H Resp Resp: Reports system reviewed and no additional complaints, except as documented; Denies cough GI GI: Reports as per HPI Psych Psych: Reports system reviewed and no additional complaints, except as documented Exam Const General: cooperative, healthy appearing, comfortable and no acute distress Resp Effort & Inspection: normal respiratory effort General: bimanual renal exam normal bilaterally External Female Exam: normal appearance of the urethra Urethra: normal appearance of the urethra Speculum Exam - Vagina: normal appearance of the vagina Speculum Exam - Cervix: normal appearance of the cervix Bimanual Exam- Adnexa, other: normal adnexae and normal Pelvic Support: normal Other: The IUD strings were visible and gently tugged, the strings came down approximately 3 cm and did not results in removal of the IUD. after multiple attempts the strings weakened and then broke. Skin General: no rashes or lesions noted Psych Appearance: grossly normal Speech and Movement: speech and movement normal Coding Level of Care Code Off vis,est,level 4 Diagnoses Retained intrauterine device (IUD) during ? O26.30 Assessment and Plan Assessment and Plan (1) Retained intrauterine device (IUD) during : ?Status:?Acute ?Comment: failed attempt to remove IUD IUD is mostly in the cervix and away from the GS, risks of leaving it in is 55% chance of infection including sepsis, labor, and pprom. Risks of miscarriage with attempted removal is 20% risk of miscarriage. Since the IUD is technically wedged in the cervix, there is a theoretical less risk of miscarriage as we will not be entering the uterine cavity during hysteroscopic removal. after a long discussion about risks vs benefits, we have decided to procded with hysteroscopic guided removal of the IUD. ?Plan: repeat quant shows that the IUP in the uterus is likely viable. Quant increased from 5000 to almost 70229 in 48 hrs. continue to follow quants and ultrasound after the procedure. pt reassured. ? ? ? Orders: Orders hCG Titer Quant., Serum? Today? O20.0 - Threatened ? ? Transvaginal w/Preg US? Today? O20.0 - Threatened ? ? UPDATE-? I have seen the patient and performed any clinically relevant updates to the history and physical exam.? Qian Kaiser DO 07/28/22 0256 <Electronically signed by Qian Kaiser DO> Cosigner Signature (if applicable): ?
--- NOTE | 2022-07-29 11:20 | PCM.OPRPT ---
Problems Associated Problem List Diagnoses (1) Retained intrauterine device (IUD) during : Report of Operation Date of Procedure: 07/29/22 Pre-Operative Diagnosis: retained IUD, 5 weeks Post-Operative Diagnosis: retained IUD, 5 weeks Surgery/Procedure Performed:: hysteroscopy, removal of IUD Description of Surgical Findings:: embedded IUD from cervix to myometrium Surgeon: Qian Kaiser agricultural crop farm manager: Iesha Chandra Type of Anesthesia: General Specimen's removed: none Drains: none Estimated Blood Loss (mL): 5 ml Description of Procedure: The patient was brought to the operating room where MAC anesthesia was initially achieved she was placed in a dorsal dorsal supine position her legs were placed in stirrups. She was prepped and draped in the usual sterile fashion. A weighted speculum was placed in the vagina the anterior lip of the cervix was grasped with a long Allis forceps. A 5 mm hysteroscope was carefully inserted into the cervix and the saline fluid on low-pressure was started. The strings of the IUD were noted visualized in the lower uterine segment into the cervix on the posterior aspect of the cervix and uterus. Gestation was noted close to the fundus and was not disrupted. The strings were grasped using the hysteroscopic instruments however did not result in removal of the IUD this was performed multiple times to the strings eventually broke. The IUD itself was grasped using the device as well and pulled down some but then again sprung back into the myometrium. Brannon Jansen was also assisting in holding the camera and also held the ultrasound device showing that the IUD could potentially be posterior to the gestation it was uncertain if the IUD was located within the myometrium or within the actual gestational sac. At this time we decided to abort the procedure to avoid more harm. The Allis clamp was removed from the cervix and excellent hemostasis was noted the patient tolerated the procedure well sponge lap needle counts were correct x2 she is now being brought to the recovery room in stable condition, Complications none Admit VTE Documentation VTE Present on Admission: Yes VTE Pharm Prophylaxis ordered?: No Reason prophylaxis not ordered:: Treatment Not Indicated Multi Select Codes Urinary/Genital Urinary/Genital CPT Codes: 86876 Hysteroscopy, diagnostic (attempted IUD removal.)
--- NOTE | 2022-07-29 11:28 | DCINST_ITS ---
Discharge Instructions Diet Discharge Diet: No restrictions Activity Discharge Activity: Return to Normal Activity, May Shower and May Take a Tub Bath (after 1 week) May resume sexual activity in: 1-2 weeks Weight Bearing Status: Weight bearing as tolerated Lifting Restrictions: none Dressing / Incision Call your doctor if you observe: Fever of 101 or Higher, Using more than 1 pad per hour, Shortness of breath and Uncontrolled pain Follow Up Care Please Follow Up With: Qian Kaiser DO When: Call [phone] to schedule appointment. Test Results: Test results from this visit will be discussed in further detail at your follow- up appointment, if applicable. Discharge Plan Admission Attending Provider: Qian Kaiser Primary Care Provider: Ovidio Mohamud Discharge Orders/Prescriptions Prescriptions: No Action ferrous sulfate 325 mg (65 mg iron) tablet 325 mg PO DAILY loratadine [Claritin] 10 mg tablet 10 mg PO DAILY azathioprine 100 mg tablet 100 mg PO DAILY Qty: 30 1RF Label Comments: on hold till speak w/ friend about lowering dose Probiotic 3 billion cell Capsule 0 mmu cells PO DAILY Rx Instructions: administer with a meal 1 mg Tablet 1 tab PO DAILY valacyclovir [Valtrex] 500 mg tablet 500 mg PO DAILY Qty: 90 3RF Referrals / Follow Up: Ovidio Mohamud MD [Primary Care Provider] - Disposition Disposition (needs filled in before D/C Order can be placed): Home, Self Care
--- NOTE | 2022-07-29 12:26 | MRI_ITS ---
EXAM: MR PELVIS WITHOUT INTRAVENOUS CONTRAST CLINICAL INDICATION: retained IUD in TECHNIQUE: Multiplanar and multisequence MR images of the pelvis without intravenous contrast. This report was created using [employer] report generation technology. COMPARISON: US 07/26/2022 FINDINGS: APPENDIX: No evidence of acute appendicitis. INTRAPERITONEAL SPACE: Moderate free fluid in the pelvis. BLADDER: Unremarkable. REPRODUCTIVE: 30 mm simple cyst of the left ovary. This correlates with finding by ultrasound. As noted on the original ultrasound, there is a gestational sac. Currently it is measuring 19 mm. In the right-sided aspect of the uterine body, there is a linear object near the Gestational sac. This has the appearance of an IUD. Series 5 image 12. BONES/JOINTS: Unremarkable. No suspicious lytic or blastic abnormality. SOFT TISSUES: Unremarkable. No pelvic wall hernia. LYMPH NODES: Unremarkable. No enlarged lymph nodes. MRI/Pelvis (Routine) IMPRESSION: 1. Moderate free fluid in the pelvis. 2. 30 mm simple cyst of the left ovary. This correlates with finding by ultrasound. 3. As noted on the original ultrasound, there is a gestational sac. Currently it is measuring 19 mm. In the right-sided aspect of the uterine body, there is a linear object near the Gestational sac. This has the appearance of an IUD. Series 5 image 12. Electronically Signed: Milan Devi MD at 17:19 EDT ,
--- NOTE | 2022-07-29 16:27 | NURSING ---
1440-pt to mri via w/c
== END 2022-07-29 18:43 | disposition home or self-care (01) ==
LOC: SDC 12:01 → MS3 13:43
PROVIDERS: Admitting Provider Obstetrics & Gynecology; PCP Family Medicine; Referring Provider Obstetrics & Gynecology; Visit Provider Obstetrics & Gynecology
PROC: 0UDB8ZZ Extraction of Endometrium, Via Natural or Artificial Opening Endoscopic (ICD-10-PCS; CPT 58558; principal; 2022-07-29 09:45)
DX: Z30.432 Encounter for removal of intrauterine contraceptive device (principal); K51.90 Ulcerative colitis, unspecified, without complications; O26.31 Retained intrauterine contraceptive device in pregnancy, first trimester; Z3A.01 Less than 8 weeks gestation of pregnancy; Z86.010 Personal history of colon polyps; O99.611 Diseases of the digestive system complicating pregnancy, first trimester; O99.011 Anemia complicating pregnancy, first trimester
CPT/HCPCS: 58555; 00952; 72195; 85027; 86850; 86900; 86901; 99218; J7120; G0378

== ENCOUNTER → 2022-08-03 | Outpatient (CLI) | payer OTHER, SELFPAY ==
--- NOTE | 2022-07-28 16:14 | PCM.HP.BLA ---
History and Physical Date of Admission: 07/28/22 MR#: [id number] Acct: [id number] Name:GERDA EUBANKS Rep #: [id number] : 1985 ? ? Provider: Dr. Qian Kaiser, DO Age/Sex:? 36/F ? ? Location: [facility] [place] Status: Signed Intake Vital Signs ? 07/26/2216:40 07/27/2211:45 07/27/2211:46 Height 5 ft 4 in 5 ft 4 in 5 ft 4 in Weight: ? 206 lb 8 oz ? BMI ? 35.4 ? BP ? 103/70 ? 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 Required: No Is patient in pain?: No Allergies azithromycin [From Zithromax] Allergy (Verified 07/27/22 11:45) Hivesclindamycin Allergy (Verified 07/27/22 11:45) Rashsulfacetamide Allergy (Verified 07/27/22 11:45) Swelling Medications ferrous sulfate 325 mg (65 mg iron) tablet 325 mg PO DAILY anemia 09/16/19 [History Confirmed 07/27/22] loratadine 10 mg tablet (Claritin) 10 mg PO DAILY allergies 07/13/20 [History Confirmed 07/27/22] azathioprine 100 mg tablet 100 mg PO DAILY #30 tabs 02/09/22 [Rx Confirmed 07/27/22] valacyclovir 500 mg tablet (Valtrex) 500 mg PO DAILY herpes #90 tabs 06/15/22 [Rx Confirmed 07/27/22] lactobacillus combination no.4 3 billion cell capsule (Probiotic) 0 mmu cells PO DAILY 07/26/22 [History Confirmed 07/27/22] multivitamin 1 tab PO DAILY 07/26/22 [History Confirmed 07/27/22] Post menopausal: No Patient : Yes : No PFSH Medical History? Anemia Heartburn Non-smoker Personal history of colonic polyps Syncope Ulcerative colitis Wears contact lenses Surgical History? delivery delivered H/O colonoscopy S/P wrist surgery Family History? Grandfather Heart disease CancerMother HypertensionGrandmother Diabetes Social History? Smoking Status:? Never smoker alcohol intake:? never substance use type:? does not use caffeine:? No frequency:? 3-4 times per week seatbelt use:? always do you feel safe at home:? 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 She consents to a pelvic exam with rem History ? ? ? 3 ? Elective abortions ? Hx Para ? ? ? 2 ? Spontaneous abortions ? Hx # Term Pregnancies ? Ectopic pregnancies ? Hx # Pregnancies ? Multiple births ? # of living children ? ? ? 3 Past Pregnancies Del. Date Name GA/Weeks Outcome Route Bth Weight Infant Gen Labor Lgth Anesthesia Del Locatn Provider FOB Unknown 2015 [place] ? live - full term ? Janeen Decker ? 06/29/18 Priti 41 live - full term ? Female ? spinal [facility] ? 02/12/21 Tete 39 live - full term ? Female ? ? [facility] ? Delivery Date: 06/29/18? Last Updated by: Yanira Romano ? ? ? 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 ? ? Delivery Date: 02/12/21? Last Updated by: Екатерина Ding ? ? ? Scheduled RLTCS ROS Const ROS Unobtainable: All systems reviewed & are unremarkable except as noted in H Resp Resp: Reports system reviewed and no additional complaints, except as documented; Denies cough GI GI: Reports as per HPI Psych Psych: Reports system reviewed and no additional complaints, except as documented Exam Const General: cooperative, healthy appearing, comfortable and no acute distress Resp Effort & Inspection: normal respiratory effort General: bimanual renal exam normal bilaterally External Female Exam: normal appearance of the urethra Urethra: normal appearance of the urethra Speculum Exam - Vagina: normal appearance of the vagina Speculum Exam - Cervix: normal appearance of the cervix Bimanual Exam- Adnexa, other: normal adnexae and normal Pelvic Support: normal Other: The IUD strings were visible and gently tugged, the strings came down approximately 3 cm and did not results in removal of the IUD. after multiple attempts the strings weakened and then broke. Skin General: no rashes or lesions noted Psych Appearance: grossly normal Speech and Movement: speech and movement normal Coding Level of Care Code Off vis,est,level 4 Diagnoses Retained intrauterine device (IUD) during ? O26.30 Assessment and Plan Assessment and Plan (1) Retained intrauterine device (IUD) during : ?Status:?Acute ?Comment: failed attempt to remove IUD IUD is mostly in the cervix and away from the GS, risks of leaving it in is 55% chance of infection including sepsis, labor, and pprom. Risks of miscarriage with attempted removal is 20% risk of miscarriage. Since the IUD is technically wedged in the cervix, there is a theoretical less risk of miscarriage as we will not be entering the uterine cavity during hysteroscopic removal. after a long discussion about risks vs benefits, we have decided to procded with hysteroscopic guided removal of the IUD. ?Plan: repeat quant shows that the IUP in the uterus is likely viable. Quant increased from 5000 to almost 10025 in 48 hrs. continue to follow quants and ultrasound after the procedure. pt reassured. ? ? ? Orders: Orders hCG Titer Quant., Serum Today O20.0 - Threatened ? Transvaginal w/Preg US Today O20.0 - Threatened ? UPDATE- I have seen the patient and performed any clinically relevant updates to the history and physical exam. Qian Kaiser, DO
--- NOTE | 2022-08-03 12:55 | US_ITS ---
ACR Level 3 findings have been noted. An addendum which confirms receipt of the report will follow. HISTORY: with IUD. TECHNIQUE: Transvaginal pelvic ultrasound was performed. 140 images. COMPARISON: 07/26/2022. FINDINGS: UTERUS: 5.8 x 10.3 x 5.5 cm. Intrauterine device in the posterior uterus, and extends beyond the uterine wall. RIGHT OVARY: 2.2 x 3.5 x 1 cm. No adnexal masses. LEFT OVARY: 4.1 x 5 x 2.5 cm . 1.9 x 2.9 x 2.8 cm complex lesion with peripheral flow. 2.6 x 3.1 x 3.3 cm cyst. FREE FLUID: Mild. INTRAUTERINE GESTATIONAL SAC: Single. Mean sac diameter 1.8 cm corresponding to 6 weeks 5 days. YOLK SAC: 4 mm. POLE: [place]-rump length 6 mm corresponding to 6 weeks 4 days. ESTIMATED GESTATIONAL AGE: 6 weeks 4 days. ESTIMATED DELIVERY DATE: 03/23/2023. HEART MOTION: 121 bpm. PLACENTA: Not visualized due to age. SUBCHORIONIC HEMORRHAGE: 0.7 x 1 x 2.4 cm. US/Transvaginal w/Preg US IMPRESSION: Single living intrauterine with an estimated gestational age of 6 weeks 4 days. Small subchorionic hematoma; recommend close follow-up. Malpositioned portion of the intrauterine device appears to penetrate into the posterior uterine wall, possibly perforating the uterine wall. Small left ovarian cyst with mild free fluid in the pelvis. Small complex lesion in the left ovary, which may represent a corpus luteal cyst. Electronically Signed: Erna Savage MD at 14:55 EDT ,
== END | disposition home or self-care (01) ==
LOC: US 12:54
PROVIDERS: PCP Family Medicine; Referring Provider Obstetrics & Gynecology; Visit Provider Obstetrics & Gynecology
DX: O36.80X0 Pregnancy with inconclusive fetal viability, not applicable or unspecified (principal)
CPT/HCPCS: 76817

== ENCOUNTER → 2022-08-10 | Outpatient (CLI) | payer OTHER, SELFPAY ==
[2022-08-10 13:40] LABS: Amphetamine Urine VISTA NEGATIVE (<1000 ng/mL); Barbiturate Urine VISTA NEGATIVE (< 200 ng/mL); Benzodiazepine Urine VISTA NEGATIVE (< 200 ng/mL); Cocaine Urine VISTA NEGATIVE (< 300 ng/mL); Ecstacy Urine VISTA NEGATIVE (< 500 ng/mL); Methadone Urine VISTA NEGATIVE (< 300 ng/mL); PCP Urine VISTA NEGATIVE (< 25 ng/mL); THC Urine VISTA NEGATIVE (< 50 ng/mL); Vista UDS pH Range 6
== END | disposition home or self-care (01) ==
LOC: LABSPEC 13:03
PROVIDERS: PCP Family Medicine; Visit Provider Obstetrics & Gynecology
DX: O09.521 Supervision of elderly multigravida, first trimester (principal); Z3A.00 Weeks of gestation of pregnancy not specified
CPT/HCPCS: 80307; 87086

== ENCOUNTER → 2022-09-07 | Outpatient (CLI) | payer OTHER, SELFPAY ==
[2022-09-07 12:43] LABS: Absolute Lymphocyte Count 1.05 X10^3/uL (0.83-4.51); Basophil# 0.02 X10^3/uL; Basophil% 0.3 % (0-1); Eosinophil# 0.11 X10^3/uL; Eosinophils% 1.7 % (0-5); Hematocrit 36.1 % (37-47); Lymphocyte # 1.05 X10^3/ul (0.83-4.51); Lymphocyte % 15.8 % (19-41); Mean Corp Hgb Conc 33.2 g/dL (32-36); Mean Corpuscular Hgb 30.6 pg (27.0-32.0); Mean Corpuscular Volume 92.1 fL (81-99); Mean Platelet Vol. 10.6 fl (6.2-12.0); Monocyte# 0.38 X10^3/uL; Monocyte% 5.7 % (0-10); NRBC Flagged by Analyzer 0 % (0-5); Neutrophil # 5.04 X10^3/uL (2.7-7.7); Platelet Count 292 K/mm3 (150-450); RBC Distribution Width CV 13.8 % (11.6-14.6); Red Blood Count 3.92 M/mm3 (4.2-5.4); White Blood Count 6.6 K/mm3 (4.4-11.0)
[2022-09-07 12:49] LABS: NATERA MAILED SPECIMEN
[2022-09-07 13:51] LABS: HIV - WCH Non-Reactive (Nonreactive); Hepatitis B Surface Antigen Non-Reactive (Nonreactive); Hepatitis C Antibody Non-Reactive (Nonreactive); Rubella IgG Reactive (Nonreactive); Syphilis Antibodies Non-reactive
== END | disposition home or self-care (01) ==
PROVIDERS: PCP Family Medicine; Referring Provider Obstetrics & Gynecology; Visit Provider Obstetrics & Gynecology
DX: O09.521 Supervision of elderly multigravida, first trimester (principal); Z3A.00 Weeks of gestation of pregnancy not specified
CPT/HCPCS: 36415; 85025; 86703; 86762; 86780; 86803; 86850; 86900; 86901; 87340

== ENCOUNTER → 2022-11-11 | Outpatient (CLI) | payer OTHER, SELFPAY | END | disposition home or self-care (01) | LOC: LAB 09:30 | PROVIDERS: PCP Family Medicine; Visit Provider Internal Medicine Gastroenterology | DX: K51.90 Ulcerative colitis, unspecified, without complications (principal) | CPT/HCPCS: 36415; 86140 ==

== ENCOUNTER → 2022-12-21 | Outpatient (CLI) | payer OTHER, SELFPAY ==
[2022-12-21 10:10] LABS: Absolute Lymphocyte Count 0.95 X10^3/uL (0.83-4.51); Absolute Neutrophil Count 7.8 X10^3/uL (2.0-7.7); Basophil# 0.03 X10^3/uL; Basophil% 0.3 % (0-1); Eosinophil# 0.12 X10^3/uL; Eosinophils% 1.3 % (0-5); Hematocrit 33.2 % (37-47); Hemoglobin 10.5 g/dL (12.0-15.0); Lymphocyte # 0.95 X10^3/ul (0.83-4.51); Lymphocyte % 10.1 % (19-41); Mean Corp Hgb Conc 31.6 g/dL (32-36); Mean Corpuscular Hgb 29.6 pg (27.0-32.0); Mean Corpuscular Volume 93.5 fL (81-99); Mean Platelet Vol. 10.3 fl (6.2-12.0); Monocyte# 0.39 X10^3/uL; Monocyte% 4.1 % (0-10); NRBC Flagged by Analyzer 0 % (0-5); Neutrophil # 7.82 X10^3/uL (2.7-7.7); Neutrophil % 83.1 % (47-70); Platelet Count 228 K/mm3 (150-450); RBC Distribution Width CV 15.4 % (11.6-14.6); RBC Distribution Width SD 53.1 fl (35.1-43.9); Red Blood Count 3.55 M/mm3 (4.2-5.4); White Blood Count 9.4 K/mm3 (4.4-11.0)
[2022-12-21 10:28] LABS: Glucose Challenge Gest 1H 50g 87 mg/dL (70-140)
[2022-12-21 10:59] LABS: HIV - WCH Non-Reactive (Nonreactive); Syphilis Antibodies Non-reactive
== END | disposition home or self-care (01) ==
PROVIDERS: PCP Family Medicine; Referring Provider Obstetrics & Gynecology; Visit Provider Obstetrics & Gynecology
DX: O09.521 Supervision of elderly multigravida, first trimester (principal)
CPT/HCPCS: 36415; 82950; 85025; 86703; 86780

== ENCOUNTER → 2022-12-22 | Outpatient (CLI) | payer OTHER, SELFPAY ==
--- NOTE | 2022-12-22 11:59 | US_ITS ---
STUDY: SECOND AND THIRD TRIMESTER OBSTETRICAL ULTRASOUND - LIMITED REASON FOR EXAM: Female, 37 years old growth LMP: 06/18/2022. PRIOR ULTRASOUND: Comparison is made with prior study dated 08/03/2022. TECHNIQUE: Transabdominal TECHNICAL QUALITY: Adequate. FINDINGS: There is a single intrauterine fetus. The fetus is in a cephalic presentation. There is demonstrated cardiac activity with a heart rate of 158 bpm. There is a normal amniotic fluid volume. The largest amniotic fluid pocket measures 5.3 cm x 5.2 cm. The amniotic fluid index (RYAN) is within normal limits. The placenta is posterior in location and is not low lying. There are Grade 0 placental changes. The cervix measures 4.4 cm in length. BIOMETRY: BPD: 6.76 cm: 27 weeks, 2 days HC: 25.17 cm: 27 weeks, 2 days AC: 22.56 cm: 27 weeks, 0 days FL: 4.82 cm: 26 weeks, 1 days Age by LMP: 27 weeks, 4 days. SARTHAK by LMP: 03/19/2023. age by prior US: 27 weeks, 0 days. SARTHAK by prior US: 03/23/2023. age by current US: 27 weeks, 0 days. SARTHAK by current US: 03/23/2023. Estimated weight: 983 grams, +/- 147 grams, 40.7 percentile. US/OB Limited With Biometrics IMPRESSION: Single live intrauterine gestation with a mean gestational age of 27 weeks. Electronically Signed: Alexandro Graham MD at 14:42 EST ,
== END | disposition home or self-care (01) ==
LOC: US 11:57
PROVIDERS: PCP Family Medicine; Visit Provider Obstetrics & Gynecology
DX: O09.529 Supervision of elderly multigravida, unspecified trimester (principal)
CPT/HCPCS: 76816

== ENCOUNTER → 2023-01-16 | Outpatient (CLI) | payer OTHER, SELFPAY ==
[2023-01-16 14:32] LABS: Erythrocyte Sedimentation Rate 21 mm/hr (0-30)
[2023-01-16 14:33] LABS: Absolute Lymphocyte Count 1.48 X10^3/uL (0.83-4.51); Absolute Neutrophil Count 7.8 X10^3/uL (2.0-7.7); Basophil# 0.02 X10^3/uL; Basophil% 0.2 % (0-1); Eosinophil# 0.14 X10^3/uL; Eosinophils% 1.4 % (0-5); Hematocrit 34.2 % (37-47); Hemoglobin 11.1 g/dL (12.0-15.0); Lymphocyte # 1.48 X10^3/ul (0.83-4.51); Lymphocyte % 14.9 % (19-41); Mean Corp Hgb Conc 32.5 g/dL (32-36); Mean Corpuscular Hgb 30.3 pg (27.0-32.0); Mean Corpuscular Volume 93.4 fL (81-99); Mean Platelet Vol. 10.5 fl (6.2-12.0); Monocyte# 0.46 X10^3/uL; Monocyte% 4.6 % (0-10); NRBC Flagged by Analyzer 0 % (0-5); Neutrophil # 7.78 X10^3/uL (2.7-7.7); Neutrophil % 78.4 % (47-70); Platelet Count 243 K/mm3 (150-450); RBC Distribution Width CV 15.3 % (11.6-14.6); RBC Distribution Width SD 52.5 fl (35.1-43.9); Red Blood Count 3.66 M/mm3 (4.2-5.4); White Blood Count 9.9 K/mm3 (4.4-11.0)
[2023-01-16 15:05] LABS: ALB/GLOB Ratio 0.7 RATIO (0.9-2.4); AST(SGOT) 19 U/L (15-37); Alanine Aminotransfer ALT/SGPT 13 U/L (13-56); Albumin, Serum 2.6 g/dL (3.2-5.0); Alkaline Phosphatase 79 U/L (45-117); Anion Gap 7 (5-15); BUN 11 mg/dL (7-18); BUN/Creat Ratio 18.3 RATIO (10-20); Calcium,Total 8.7 mg/dL (8.5-10.1); Chloride 105 mmol/L (98-107); EST Glomerular Filtration Rate 120 mL/min (>60); Est Glom Filt Rate - Afr Amer 145 mL/min (>60); Globulin 3.7 g/dL (2.2-4.2); Glucose 87 mg/dL (74-106); Potassium 3.8 mmol/L (3.5-5.1); Protein, Total 6.3 g/dL (6.4-8.2); Sodium Level 137 mmol/L (136-145)
== END | disposition home or self-care (01) ==
LOC: LAB 13:45
PROVIDERS: PCP Family Medicine; Referring Provider Internal Medicine Gastroenterology; Visit Provider Internal Medicine Gastroenterology
DX: K51.90 Ulcerative colitis, unspecified, without complications (principal)
CPT/HCPCS: 36415; 80053; 85025; 85652; 86140

== ENCOUNTER → 2023-01-19 | Outpatient (CLI) | payer OTHER, SELFPAY ==
--- NOTE | 2023-01-19 12:04 | US_ITS ---
STUDY: SECOND AND THIRD TRIMESTER OBSTETRICAL ULTRASOUND REASON FOR EXAM: Female, 37 years old growth LMP: 06/18/2022 TECHNIQUE: Transabdominal TECHNICAL QUALITY: Adequate. PRIOR ULTRASOUND: 12/22/2022 FINDINGS: There is a single intrauterine fetus. The fetus is in a transverse lie with the head on the maternal right side. There is demonstrated cardiac activity with a heart rate of 147 bpm. There is a normal amniotic fluid volume. The largest amniotic fluid pocket measures 7.2 cm. The amniotic fluid index (RYAN) is 17.7 cm. The placenta is posterior in location and is not low lying. There are Grade 1 placental changes. The cervix measures 4.6 cm in length. The adnexal regions are not visualized. BIOMETRY: BPD: 8.04 cm: 32 weeks, 2 days HC: 30.16 cm: 33 weeks, 3 days AC: 27.59 cm: 31 weeks, 5 days FL: 5.81 cm: 30 weeks, 3 days age by current US: 32 weeks, 2 days. SARTHAK by current US: 03/14/2023. Estimated weight: 1768 grams, +/- 265 grams, 63 %. age by prior US: 31 weeks, 0 days. SARTHAK by prior US: 03/23/2023. Age by LMP: 30 weeks, 5 days. SARTHAK by LMP: 03/25/2023. US/OB Limited With Biometrics IMPRESSION: Single live intrauterine at 32 weeks 2 days by current ultrasound with SARTHAK of 03/14/2023. Heart rate 147 bpm. No suspicious sonographic findings, SARTHAK and current study is 9 days earlier than on the previous study Electronically Signed: Live Patricia MD at 13:58 EST ,
== END | disposition home or self-care (01) ==
LOC: OPUS 12:02
PROVIDERS: PCP Family Medicine; Visit Provider Obstetrics & Gynecology
DX: O09.529 Supervision of elderly multigravida, unspecified trimester (principal)
CPT/HCPCS: 76816

== ENCOUNTER → 2023-02-15 | Outpatient (CLI) | payer OTHER, SELFPAY ==
--- NOTE | 2023-02-15 11:26 | US_ITS ---
STUDY: SECOND AND THIRD TRIMESTER OBSTETRICAL ULTRASOUND - LIMITED REASON FOR EXAM: Female, 37 years old. growth. LMP: June 12, 2022 PRIOR ULTRASOUND: July 26, 2022, August 03, 2022, December 22, 2022 and January 19, 2023 TECHNIQUE: Transabdominal TECHNICAL QUALITY: Adequate. FINDINGS: There is a single intrauterine fetus. The fetus is in a cephalic presentation. There is demonstrated cardiac activity with a heart rate of 158 bpm. There is a normal amniotic fluid volume. The largest amniotic fluid pocket measures 5.7 cm. The amniotic fluid index (RYAN) is 13.37 cm. The placenta is fundal in location. There are Grade 0 placental changes. The cervix measures 3.7 cm in length. BIOMETRY: BPD: 9.16 cm: 37 weeks, 1 days HC: 32.83 cm: 37 weeks, 2 days AC: 31.2 cm: 35 weeks, 1 days FL: 6.72 cm: 34 weeks, 4 days Age by LMP: 36 weeks, 0 days. SARTHAK by LMP: March 19, 2023. age by prior US: 34 weeks, 5 days. SARTHAK by prior US: March 24, 2023. age by current US: 36 weeks, 5 days. SARTHAK by current US: March 10, 2023. Estimated weight: 2680 grams, +/- 402 grams, 70 percentile. Gender: Indeterminant US/OB Limited With Biometrics IMPRESSION: 1. Live single intrauterine at 36 weeks, 5 days. SARTHAK is March 10, 2023. There is adequate interval growth since the initial ultrasound. 2. EFW of 2680 g. 3. RYAN of 13.37 cm 4. Fundal grade 0 placenta. 5. Vertex presentation. Electronically Signed: Jong Charles DO at 22:08 EDT ,
== END | disposition home or self-care (01) ==
LOC: US 11:24
PROVIDERS: PCP Family Medicine; Referring Provider Obstetrics & Gynecology; Visit Provider Obstetrics & Gynecology
DX: O09.529 Supervision of elderly multigravida, unspecified trimester (principal)
CPT/HCPCS: 76816

== ENCOUNTER → 2023-02-21 | Outpatient (CLI) | payer OTHER, SELFPAY | END | disposition home or self-care (01) | LOC: LAB 10:02 | PROVIDERS: PCP Family Medicine; Referring Provider Internal Medicine Gastroenterology; Visit Provider Internal Medicine Gastroenterology | DX: K51.90 Ulcerative colitis, unspecified, without complications (principal) | CPT/HCPCS: 36415; 86140 ==

== ENCOUNTER → 2023-02-24 | Outpatient (CLI) | payer OTHER, SELFPAY | END | disposition home or self-care (01) | PROVIDERS: PCP Family Medicine; Visit Provider Obstetrics & Gynecology | DX: Z34.90 Encounter for supervision of normal pregnancy, unspecified, unspecified trimester (principal) | CPT/HCPCS: 87081 ==

== ENCOUNTER → 2023-03-16 | Outpatient (CLI) | payer OTHER, SELFPAY ==
[2023-03-16 10:02] LABS: CRP 7.91 mg/L (0.0-3.0)
== END | disposition home or self-care (01) ==
LOC: LAB 08:22
PROVIDERS: PCP Family Medicine; Referring Provider Internal Medicine Gastroenterology; Visit Provider Internal Medicine Gastroenterology
DX: K51.90 Ulcerative colitis, unspecified, without complications (principal)
CPT/HCPCS: 36415; 86140

== ENCOUNTER 2023-03-23 05:05 | Inpatient (IN) | payer OTHER, SELFPAY ==
[2023-03-23] VITALS (27 sets, daily range): BP systolic 90–113; BP diastolic 39–70; PULSE 73–106; RESP 14–18; TEMP 35.8–36.7; O2SAT 94–97; BMI 42.5
--- NOTE | 2023-03-23 | FALS_PTH ---
PATIENT: GERDA NOYOLA LOC: WP U#:[id number] AGE/SX: 37/F ROOM: [facility] RE03/23/[address]: Dr. Qian Kaiser DO : 1985 BED: 1 DIS: 03/24/2023 SPEC #: [id number] RECD: 03/23/23 11:26 STATUS: TABATHA PATELDon #: [id number] KINGA: 03/23/23 00:[address]: Qian Kaiser DEPT: SURGICAL PATHOLOGY RECD BY: Jose Dubose ENTERED: 03/23/23 11:26 SP TYPE: FALL TUBES OTHR DR: Dr. Africa Arreola MD Tissues: Fallopian tube Procedures: Surgery Specimen Level II HEADER OPERATION: Tubal ligation PRE-OP DIAGNOSIS: Sterilization TISSUE SUBMITTED: Fallopian tubes, suture in right tube MICROSCOPIC DIAGNOSIS Right fallopian tube, salpingectomy: Complete cross-sections of fallopian tube with no pathologic change. Left fallopian tube, salpingectomy: Complete cross-sections of fallopian tube with no pathologic change. AM:roverto 03/24/2023 MICROSCOPIC DESCRIPTION Slides are reviewed. GROSS DESCRIPTION Received in fixative is one container labeled with the patient's name and designated bilateral fallopian tubes, right with suture. The specimen consists of bilateral fallopian tubes including fimbrial ends. The right fallopian tube measures 6.5 cm in length and up to 1.0 cm in diameter and left fallopian tube measures 7.5 cm in length and up to 1.0 cm in diameter. Sections reveal unremarkable cut surfaces. Supermarket Manager sections are submitted in two cassettes as follows: 1 ? right fallopian tube, 2 ? left fallopian tube. / SJ:roverto 03/23/2023 TC:4 CPT: 06684 x2
[2023-03-23] MEDS: Lactated Ringers 1,000 ML 999 ML IV (05:55)
[2023-03-23] MEDS: Acetaminophen 500 MG Tablet 1000 MG PO ×4 (06:02→23:49)
[2023-03-23 06:16] LABS: Absolute Lymphocyte Count 1.37 X10^3/uL (0.83-4.51); Absolute Neutrophil Count 6.9 X10^3/uL (2.0-7.7); Basophil# 0.02 X10^3/uL; Basophil% 0.2 % (0-1); Eosinophil# 0.11 X10^3/uL; Eosinophils% 1.3 % (0-5); Lymphocyte # 1.37 X10^3/ul (0.83-4.51); Lymphocyte % 15.6 % (19-41); Mean Corp Hgb Conc 32.4 g/dL (32-36); Mean Corpuscular Hgb 30.1 pg (27.0-32.0); Mean Corpuscular Volume 92.9 fL (81-99); Mean Platelet Vol. 10.9 fl (6.2-12.0); Monocyte# 0.32 X10^3/uL; Monocyte% 3.7 % (0-10); NRBC Flagged by Analyzer 0 % (0-5); Neutrophil # 6.86 X10^3/uL (2.7-7.7); Neutrophil % 78.3 % (47-70); Platelet Count 201 K/mm3 (150-450); RBC Distribution Width CV 15.2 % (11.6-14.6); RBC Distribution Width SD 51.9 fl (35.1-43.9); Red Blood Count 3.66 M/mm3 (4.2-5.4); White Blood Count 8.8 K/mm3 (4.4-11.0)
[2023-03-23] MEDS: Lactated Ringers 1,000 ML 150 ML IV (07:00)
[2023-03-23] MEDS: Sodium Citrate/Citric Acid 30 ML UDC PO (07:05)
[2023-03-23] MEDS: Cefazolin 2 GM in 0.9% Normal Saline 100 ML IV (07:15)
--- NOTE | 2023-03-23 07:15 | HP.PCM.OB_ITS ---
HPI - General General Date of Admission: 03/23/23 HPI Narrative GERDA NOYOLA, is a 37 y/o @ 39 weeks 5 days who presents to L&D for a scheduled repeat section. Maternal Data Information SARTHAK Calculator Estimated Delivery Date Method Current WG Current Estimate 03/25/23 Ultrasound #1 39w 5d Other Estimates 03/19/23 LMP (Certain) 40w 4d 03/27/23 [facility]trasound [facility]2 39w 3d [facility] History (Updated 03/23/23 @ 05:56 by Nayana Shepherd) Anemia Anemia affecting Anesthesia complication Heartburn History of tetanus, diphtheria, and acellular pertussis booster vaccination (Tdap) Non-smoker Personal history of colonic polyps Pre-conception counseling Seizures Syncope Ulcerative colitis Wears contact lenses Home Medications ferrous sulfate 325 mg (65 mg iron) tablet 325 mg PO DAILY anemia 09/16/19 [History Last Taken 03/22/23] loratadine 10 mg tablet (Claritin) 10 mg PO DAILY allergies 07/13/20 [History Last Taken 03/23/23] valacyclovir 500 mg tablet (Valtrex) 500 mg PO DAILY herpes #90 tabs 06/15/22 [Rx Last Taken 03/22/23] lactobacillus combination no.4 3 billion cell capsule (Probiotic) 0 mmu cells PO DAILY Check with primary doctor 07/26/22 [History Last Taken 03/22/23] fubxnyfu-smv-Bh-FA 1 mg tablet 1 tab PO DAILY Check with primary doctor 07/28/22 [History Last Taken Unknown] azathioprine 100 mg tablet 100 mg PO DAILY Check with primary doctor 03/23/23 [History Last Taken 03/22/23] famotidine 20 mg tablet (Pepcid) 1 mg PO BID Check with primary doctor 03/23/23 [History Last Taken 03/22/23] Allergy/AdvReac Type Severity Reaction Status Date / Time azithromycin [From Zithromax] Allergy Hives Verified 03/23/23 05:38 clindamycin Allergy Rash Verified 03/23/23 05:38 sulfacetamide Allergy Swelling Verified 03/23/23 05:38 Family History Grandfather Heart disease Cancer Mother Hypertension Grandmother Diabetes Surgical History delivery delivered H/O colonoscopy Hx of colonoscopy S/P wrist surgery Social History adopted: No household members: spouse and children housing: house number of children: 3 current occupational status: employed 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 current occupational exposures/hazards: No pets and animals: Yes pets and animals: dog(s) history of recent travel: No sexually active: Yes Smoking Status: Never smoker alcohol intake: never substance use type: does not use caffeine: No what type of physical activity do you participate in: walking frequency: 3-4 times per week jazlyn/druze: None seatbelt use: always do you feel safe at home: Yes 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 Date Name GA/Weeks Outcome Route Bth Weight Gen Labor Lgth Anes t hesia Del Locatn Provider FOB Unknown 2015 Hayden live - full term Janeen Brianne 06/29/18 Priti 41 live - full term Female s tali [facility] 02/12/21 Tete 39 live - full term Female [facility] Delivery Date: 06/29/18 Last Updated by: Yanira Romano MANAGER RESEARCH Delivery Date: 02/12/21 Last Updated by: Екатерина Ding Scheduled RLTCS Visit Details Expected Delivery Route/Plan RLTCS BS Plans Covid status: given Flu vaccine: given Tdap vaccine: Rhogam: NA LARC form signed: yes Problem list reviewed and updated with the most current plan of care details and appropriate orders placed. Relevant counseling for the gestational age provided. Continue routine care and follow up unless otherwise noted in visit notes/problem list details OB Flowsheet Initial Weight: Not Recorded Date -?-?-?-?-?-?-?-?-?-?-?-?- EGA Weight BP Urine Prot -?-?-?-?-?-?-?-?-?-?-?-?- Glucose FHR FuHt Pres Dilation -?-?-?-?-?-?-?-?-?-?-?-?- Effaced St Visit Note 08/10/22 -?-?-?-?-?-?-?-?-?-?-?-?- 7w 4d 211 lb 8 oz 109/73 -?-?-?-?-?-?-?-?-?-?-?-?- 145 -?-?-?-?-?-?-?-?-?-?-?-?- JV- CRL measurin g 7 weeks 2 days today. IUD today not seen. 2.3 cm simple ovarian cyst. no trevor noted today. last ultrasound showed the possibility of the IUD perforated through the uterine wall. JV- CRL measuring 7 weeks 2 days today. IUD today not seen. 2.3 cm simple ovarian cyst. no trevor noted today. last ultrasound showed the possibility of the IUD perforated through the uterine wall. sees mfm on 08/24. 08/19/22 -?-?-?-?-?-?-?-?-?-?-?-?- 8w 6d 214 lb 8 oz 107/72 Nega tive -?-?-?-?-?-?-?-?-?-?-?-?- Negative 169 -?-?-?-?-?-?-?-?-?-?-?-?- JV- CRL 9w1 days today. movement present. NO iud seen on exam today. JV- CRL 9w1 days today. feta l movement present. NO iud seen on exam today. sees MFM on monday09/02/22 -?-?-?-?-?-?-?-?-?-?-?-?- 10w 6d 213 lb 4 oz 122/81 Nega tive -?-?-?-?-?-?-?-?-?-?-?-?- Negative 170 -?-?-?-?-?-?-?-?-?-?-?-?- JV- IUD no longe r in the uterus, confirmed by MFM also . pt wants NT (scheduled next week) and will get NIPT testing next week. 09/30/22 -?-?-?-?-?-?-?-?-?-?-?-?- 14w 6d 216 lb 2 oz 121/81 Nega tive -?-?-?-?-?-?-?-?-?-?-?-?- Negative 179 -?-?-?-?-?-?-?-?-?-?-?-?- JV- normal NT. M FM scared her with a new due date. we will keep as is and plan for rpt section week of 03/20/22 10/27/22 -?-?-?-?-?-?-?-?-?-?-?-?- 18w 5d 221 lb 8 oz 110/72 Nega tive -?-?-?-?-?-?-?-?-?-?-?-?- Negative 155 -?-?-?-?-?-?-?-?-?-?-?-?- JV- mfm ultrasou nd was yesterday. report pending but could not see all views of heart or genitals. has follow up 11/18/22 in [place]. No complaints. 11/25/22 -?-?-?-?-?-?-?-?-?-?-?-?- 22w 6d 227 lb 4 oz 129/77 -?-?-?-?-?-?-?-?-?-?-?-?- 150 -?-?-?-?-?-?-?-?-?-?-?-?- JV- mfm us growt h is normal. they are recommending monthly growth scan. pt wants to do them here. no complaints today. 12/23/22 -?-?-?-?-?-?-?-?--?-?-?-?- 26w 6d 231 lb 1 oz 112/70 Nega tive -?-?-?-?-?-?-?-?-?-?-?-?- Negative 145 27 -?-?-?-?-?-?-?-?-?-?-?-?- SM- no vb lof go od fm n regular ctx 01/06/23 -?-?-?-?-?-?-?-?-?-?-?-?- 28w 6d 235 lb 2 oz 102/70 Nega tive -?-?-?-?-?-?-?-?-?-?-?-?- Negative 129 28 -?-?-?-?-?-?--?-?-?-?-?-?- JV- normal betsy a nd growth recent ultrasound. no complaints today. rpt c/s scheduled. 01/19/23 -?-?-?-?-?-?-?-?-?-?-?-?- 30w 5d 236 lb 6 oz 108/72 Nega tive -?-?-?-?-?-?-?-?-?-?-?-?- Negative 146 30 -?-?-?-?-?-?-?-?-?-?-?-?- -No Vb, LOF. G ood FM. Denies concerns 02/03/23 -?-?-?-?-?-?--?-?-?-?-?-?- 32w 6d 238 lb 6 oz 108/71 Nega tive -?-?-?-?-?-?-?-?-?-?-?-?- Negative 140 34 -?-?-?-?-?-?-?-?-?-?-?-?- SM- no vb lof go od fm no regular ctx 02/15/23 -?-?-?-?-?-?-?-?-?-?-?-?- 34w 4d 236 lb 8 oz 99/67 Nega tive -?-?-?-?-?-?-?-?-?-?-?-?- Negative 148 36 -?-?-?-?-?--?-?-?-?-?-?-?- MH-No Vb, LOF. G ood FM. Growth US today 02/24/23 -?-?-?-?-?-?-?-?-?-?-?-?- 35w 6d 240 lb 102/71 Negative -?-?-?-?-?-?-?-?-?-?-?-?- Negative 150 36 Cephalic -?-?-?-?-?-?-?-?-?-?-?-?- JV- no lof, vagi nal bleeding, or dec fm. gbs collected JV- no lof, vaginal bleeding , or dec fm. gbs collected. pt states that her CRP level is creeping up and monitored by Dr. Sanchez. He told her he doesn't know why it's going up. She does not have any exacerbating UC symptoms. Suspect normal in to be increased. 03/01/23 -?-?-?-?-?-?-?-?-?-?-?-?- 36w 4d 240 lb 105/69 Trace -?-?-?-?-?-?-?-?-?-?-?-?- Negative 156 38 Cephalic -?-?-?-?-?-?-?--?-?-?-?-?- JV- no complaint s. getting vasectomy next week, 03/10/23 -?-?-?-?-?-?-?-?-?-?-?-?- 37w 6d 242 lb 6 oz 114/76 Nega tive -?-?-?-?-?-?-?-?-?-?-?-?- Negative 145 38 -?-?-?-?-?-?-?-?-?-?-?-?- SM- no vb lof go od fm no regualr ctx 03/17/23 -?-?-?-?-?-?-?-?-?-?-?-?- 38w 6d 242 lb 121/84 Trace -?-?-?-?-?-?-?-?-?-?-?-?- Negative 140 39 -?-?-?-?-?-?-?-?-?-?-?-?- SM- no vb lof go od fm no regular ctx ROS Constitutional Constitutional: Denies change in weight, fatigue, fever(s), headache(s), poor appetite or weakness Eyes Eyes: Denies blurry vision, change in vision, seeing flashes or spots in vision ENT HEENT: Denies dizziness, headache(s), loss taste/smell or sore throat Cardiovascular Cardiovascular: Denies chest pain, dizziness, dyspnea, irregular heart rhythm, leg edema, palpitations, rapid heart rate or vomiting Respiratory/Chest Respiratory/Chest: Denies chest tightness, cough, dyspnea or breast pain Gastrointestinal Gastrointestinal: Denies abdominal pain, anorexia, constipation, cramping, diarrhea, hemorrhoids, vomiting or weight changes Genitourinary Genitourinary: Denies dysuria, flank pain, genital lesions, genital pain, urinary frequency or urinary urgency Musculoskeletal Musculoskeletal: Denies back pain, difficulty walking, joint pain, limited range of motion, muscle cramps or numbness Integumentary Integumentary: Denies lesions or unusual bruising Neurologic Neurologic: Denies abnormal movements, abnormal speech, dizziness, numbness, seizure-like activity or syncope Psychiatric Psychiatric: Denies anxiety, behavioral changes, change in appetite, change in libido, cognitive impairment, confusion, depression, difficulty concentrating, hallucinations or suicidal thoughts Endocrine Endocrinology: Denies excessive sweating, polydipsia or polyuria Hematologic/Lymphatic Hematologic/Lymphatic: Denies easy bleeding, easy bruising or lymphadenopathy Allergic/Immunologic Allergic/Immunologic: Denies itchy eyes, lip swelling, seasonal rhinorrhea, rhinitis, throat swelling, tongue swelling, eczemia, wheezing or asthma Vital Signs Vital Signs Vital Signs: 03/23/23 05:33 03/23/23 05:33 03/23/23 05:38 Temperature Temperature Source Pulse Rate 90 106 H Respiratory Rate Blood Pressure Blood Pressure Mean BP Systolic BP Diastolic Blood Pressure Source Blood Pressure Position Blood Pressure Location Pulse Ox 95 Oxygen Delivery Method 03/23/23 05:38 03/23/23 05:34 03/23/23 05:34 Temperature Temperature Source Temporal Pulse Rate Respiratory Rate Blood Pressure 113/70 Blood Pressure Mean BP Systolic 113 BP Diastolic 70 Blood Pressure Source Blood Pressure Position Blood Pressure Location Pulse Ox 97 Oxygen Delivery Method 03/23/23 05:34 03/23/23 05:34 03/23/23 05:34 Temperature 97.2 F L Temperature Source Pulse Rate 99 Respiratory Rate Blood Pressure Blood Pressure Mean BP Systolic BP Diastolic Blood Pressure Source Blood Pressure Position Blood Pressure Location Pulse Ox 96 Oxygen Delivery Method 03/23/23 05:56 Temperature 97.2 F L Temperature Source Temporal Pulse Rate 99 Respiratory Rate 16 Blood Pressure 113/70 Blood Pressure Mean 84 BP Systolic BP Diastolic Blood Pressure Source Monitor Blood Pressure Position Semi-Fowlers Blood Pressure Location Left Arm Pulse Ox 96 Oxygen Delivery Method Room Air Weight Weight: 247 lb 12.8 oz Body Mass Index (BMI) 42.5 Physical Exam Const alert, oriented x3, no apparent distress and healthy appearing General Appearance: cooperative; Negative for anxious HEENT normocephalic Face and Sinus: normal facial exam Eyes EOMs intact bilaterally and no scleral icterus General Eye: normal appearance of both eyes Neck full ROM and supple Lymph Lymphatic: no lymphadenopathy noted Chest Chest: abnormal inspection of the chest Resp normal respiratory effort Effort and Inspection: able to speak in complete sentences Cardio regular rate GI soft to palpation and non-tender Inspection: gravid Palpation: soft; Negative for tender Back/Spine no CVA tenderness Extremity normal to inspection, full ROM and no clubbing, cyanosis or edema General Extremity: Negative for calf tenderness or edema Skin Lesions: no lesions Rashes: no rashes Psych mental status grossly normal Labs Labs Labs: Blood Type O POSITIVE Antibody Screen NEGATIVE Hct 34.0 % (37-47) L Hgb 11.0 g/dL (12.0-15.0) L Pap Smear Negative Obstetrics US Syphilis Total Ab Non-reactive Rubella IgG Antibody Reactive (Nonreactive) Hep Bs Antigen Non-Reactive (Nonreactive) Chlamydia DNA (JANNETTE) Negative (Negative) Neisseria gonorrhoeae DNA (JANNETTE) Negative (Negative) HIV 1&2 Antibody Non-Reactive (Nonreactive) Glucose 1 Hr 50 gm 87 mg/dL (70-140) Group B Strep DNA Negative (Negative) Rhogam given: No Assessment & Plan (1) COVID-19 vaccine administered: COMMENT: Received both vaccines. Boosters current (2) Retained intrauterine device (IUD) during : COMMENT: failed attempt to remove IUD IUD is mostly in the cervix and away from the GS on first ultrasound. s/p hysteroscopy with unsuccessful extraction of embedded IUD below the GS . MFM confirmed IUD not visualized on US (3) Seasonal allergies: COMMENT: Spring through fall. Claritin daily (4) Hx of herpes simplex type 2 infection: COMMENT: on valtrex (5) : QUALIFIERS: Weeks of gestation: 38 weeks Qualified Code(s): Z3A.38 - 38 weeks gestation of COMMENT: GBS Negative, NIPT low risk, discussed carrier testing, nl anatomy. (6) Supervision of high risk elderly multigravida in first trimester: COMMENT: PRR , SARTHAK 03/19/22, girl Carmine Priti Haynes [place], Spouse Srini (7) AMA (advanced maternal age) multigravida 35+: COMMENT: nl nipt (8) Previous delivery affecting : COMMENT: prev cs x 3 plan RLTCS. Scheduled for 03/23 @ 7:10 with JV (9) Ulcerative colitis: PLAN: Plan plan for ERAS repeat section with tubal ligation. will also explore for IUD consent signed. risks, benefits, alternatives discussed.
--- NOTE | 2023-03-23 08:17 | OP.PCM_ITS ---
Assessment & Plan (1) COVID-19 vaccine administered: COMMENT: Received both vaccines. Boosters current (2) Retained intrauterine device (IUD) during : COMMENT: failed attempt to remove IUD IUD is mostly in the cervix and away from the GS on first ultrasound. s/p hysteroscopy with unsuccessful extraction of embedded IUD below the GS . MFM confirmed IUD not visualized on US (3) Seasonal allergies: COMMENT: Spring through fall. Claritin daily (4) Hx of herpes simplex type 2 infection: COMMENT: on valtrex (5) : QUALIFIERS: Weeks of gestation: 38 weeks Qualified Code(s): Z3A.38 - 38 weeks gestation of COMMENT: GBS Negative, NIPT low risk, discussed carrier testing, nl anatomy. (6) Supervision of high risk elderly multigravida in first trimester: COMMENT: PRR , SARTHAK 03/19/22, girl Carmine PRINCE Priti [place], Spouse Srini (7) AMA (advanced maternal age) multigravida 35+: COMMENT: nl nipt (8) Previous delivery affecting : COMMENT: prev cs x 3 plan RLTCS. Scheduled for 03/23 @ 7:10 with JV (9) Ulcerative colitis: Maternal Data Information SARTHAK Calculator Estimated Delivery Date Method Current Current Estimate 03/25/23 Ultrasound #1 39w 5d Other Estimates 03/19/23 LMP (Certain) 40w 4d 03/27/23 Ultrasound #2 39w 3d Final SARTHAK: 03/25/23 Final SARTHAK Source: LMP Gestational age: 39 weeks 5 days [place] Doctor Who Attended Delivery: Lyn Lyon Details Operative Information Date of Procedure: 03/23/23 Pre-Operative Diagnosis: 37 y/o @ 39 weeks 5 days, prior sections, desires permanent sterilization, retained IUD Post-Operative Diagnosis: 37 y/o @ 39 weeks 5 days, prior sections, desires permanent sterilization, retained IUD, intrapartum hemorrhage Indications for : Repeat Elective Classification: Scheduled Procedure Type: - (removal of IUD, left uterine artery ligation ) consumer marketing specialist #1: Shai Javier Type of Anesthesia: Spinal Antibiotic Given: Ancef 2 grams IV x1 Estimated Blood Loss: 1000cc Findings Description of Procedure: The patient is a 37y/o @ 39 weeks 5 days who presented for repeat C- section and bilateral tubal ligation. Her was complicated by a retained IUD. The plan is to remove the IUD also from the uterus or abdomen. Spinal anesthesia was placed without difficulty. Amaya catheter was placed. The patient was placed in the dorsal supine position with leftward tilt. Patient was prepped and draped in the normal sterile fashion. Pfannenstiel skin incision was made with the scalpel and carried through to the underlying layer of fascia with the scalpel. Fascia was nicked in the midline and the incision extended laterally. The peritoneum was entered sharply. The incision was stretched and a low transverse uterine incision was made with the scalpel. The 's head was delivered atraumatically followed by the anterior and posterior shoulders without complication the rest of the delivered. The cord was clamped and cut and the infant was handed off to awaiting nurse. The placenta was delivered spontaneously immediately following and was noted to be intact and have a three-vessel cord. The uterus started bleeding profusely. TXA was started. The uterus was exteriorized cleared of all clots and debris, and the incision was closed with a 1-0 vicryl. The left uterine artery was noted to be spraying blood. A uterine artery ligation was performed by placing a stitch around the left lower uterine segment uterine artery with 2 passes. Excellent hemostasis was achieved. The ovaries and fallopian tubes were noted to be within normal limits. The IUD was found to be protruding from the fundus and easily teased out of the muscle. There was a fine adhesion from the IUD to the left fallopian tube. A bilateral salpingectomy was performed using the ligasure device by cauterizing and cutting the ulerlying mesosalpinx. The uterus was returned to the maternal abdomen and gutters were cleared of all clots and debris. The peritoneum was closed with 3-0 Monocryl in a running fashion. Gloves were changed prior to fascial closure. Fascia was closed with 0 PDS in a running fashion. Subcutaneous tissue was copiously irrigated and the skin was closed with 3-0 Monocryl in a subcuticular fashion. Mepilex dressing was applied without complication. Patient was taken to recovery in stable condition. Baby girl Abdiel [place] Presentation: Positive for Vertex Amniotic Membrane Rupture Type: Artificial Amniotic Fluid Description: Clear Placental Delivery Description: Manual Removal Placenta Disposition: [facility] Cord Vessel Description: 3 Vessels Cord Entanglement: None Infant A Gender: Female Delayed Cord Clamping: Yes Complications Risks of Surgery Discussed w/Patient: Bleeding, Anesthesia Risks, Infection, Need for Future C-Sections, Permanency, Failure Rate of 1 to 2%, Injury to surrounding structure(s) including bowel and bladder and Availability of other non-permanent control options Multi Select Codes Urinary/Genital Urinary/Genital CPT Codes: 18721 Delivery [facility]
[2023-03-23] MEDS: Oxytocin 15 Units/NS 250ml 15 UNITS/250 ML IV.SOLN 83 UNITS IV (08:50)
[2023-03-23 09:07] LABS: Syphilis Antibodies Non-reactive
[2023-03-23 09:14] LABS: Chlamydia Trachomatis by PCR Negative (Negative); Neisserai gonorrhoeae by PCR Negative (Negative); Probe Check PASS; Sample Adequacy Control PASS; Specimen Processing Control PASS
[2023-03-23] MEDS: Ketorolac 30 MG/ML Syringe IV ×3 (09:33→21:49)
[2023-03-23] MEDS: 0.9% Saline Lock 10 ML Syringe IV ×3 (09:33→21:50)
[2023-03-23 09:45] LABS: Pathology Specimen OB SEE PATHOLOGY REPORT
[2023-03-23] MEDS: Prenatal Vits Tablet 1 TABLET PO (12:17)
[2023-03-23] MEDS: Ferrous Sulfate 325 MG Tablet PO (12:18)
[2023-03-23] MEDS: Famotidine 20 MG Tablet PO ×2 (12:19→21:50)
[2023-03-23] MEDS: Loratadine 10 MG Tablet PO (12:19)
[2023-03-23] MEDS: azaTHIOprine 50 MG Tablet 100 MG PO (12:20)
[2023-03-23] MEDS: Lactated Ringers 1,000 ML 100 ML IV (13:47)
[2023-03-23] MEDS: Enoxaparin 40 MG/0.4 ML Syringe SC (20:03)
[2023-03-24 01:45] VITALS: RESP 15; O2SAT 96
[2023-03-24 03:45] VITALS: RESP 15; O2SAT 96
[2023-03-24] MEDS: 0.9% Saline Lock 10 ML Syringe IV (04:04)
[2023-03-24] MEDS: Ketorolac 30 MG/ML Syringe IV (04:04)
[2023-03-24 04:09] VITALS: BP 92/50; PULSE 66; RESP 15; O2SAT 97
[2023-03-24 04:58] LABS: Hematocrit 27.6 % (37-47); Mean Corp Hgb Conc 32.6 g/dL (32-36); Mean Corpuscular Hgb 30.7 pg (27.0-32.0); Mean Corpuscular Volume 94.2 fL (81-99); Mean Platelet Vol. 10.2 fl (6.2-12.0); Platelet Count 161 K/mm3 (150-450); RBC Distribution Width CV 15.4 % (11.6-14.6); RBC Distribution Width SD 53.1 fl (35.1-43.9); Red Blood Count 2.93 M/mm3 (4.2-5.4)
[2023-03-24 05:45] VITALS: RESP 16; O2SAT 96
[2023-03-24] MEDS: Acetaminophen 500 MG Tablet 1000 MG PO ×2 (05:59→12:18)
--- NOTE | 2023-03-24 07:06 | PN.OBGYN_ITS ---
Subjective Subjective Patient doing well without complaints. Tolerating PO. Ambulating and voiding without difficulty. Feeding well. Denies chest pain, shortness of breath, calf pain/swelling, fevers, chills, lightheadedness. Objective Data Objective Data Vital Signs: Vital Signs Temp Pulse Resp BP Pulse Ox O2 Del Method 97.0 F L 66 16 92/50 L 96 Room Air 03/23/23 23:51 03/24/23 04:09 03/24/23 05:45 03/24/23 04:09 03/24/23 05:45 03/24/23 05:45 Oxygen Delivery Method Room Air Weight: 247 lb 12.8 oz Body Mass Index (BMI) 42.5 Intake & Output: Intake and Output for Last 24 Hours 03/22/23 03/23/23 03/24/23 23:59 23:59 23:59 Intake Total 1659.17 / 1659.17 Output Total 2150 / 2150 Balance -490.83 / -490.83 Lab / Micro Data Attestation: I reviewed the patient's lab results. Result Diagrams: 03/24/23 04:45 Labs: Laboratory Results - last 24 hr 03/23/23 05:55: Blood Type O POSITIVE, Antibody Screen NEGATIVE 03/23/23 05:55: Syphilis Total Ab Non-reactive 03/23/23 06:15: Chlam trachomat DNA PCR Negative, N.gonorrhoeae DNA (PCR) Negative 03/24/23 04:45: WBC 10.0, RBC 2.93 L, Hgb 9.0 L, Hct 27.6 L, MCV 94.2, MCH 30.7, MCHC 32.6, RDW Std Deviation 53.1 H, RDW Coeff of Melo 15.4 H, Plt Count 161, MPV 10.2 ROS Constitutional Constitutional: Reports systems reviewed and no addt'l complaints, except as documented; Denies anorexia or headache(s) Cardiovascular Cardiovascular: Reports systems reviewed and no addt'l complaints, except as documented; Denies dizziness, dyspnea, nausea or tachypnea Respiratory/Chest Respiratory/Chest: Reports systems reviewed and no addt'l complaints, except as documented; Denies cough, dyspnea, shortness of breath at rest or tachypnea Gastrointestinal Gastrointestinal: Reports systems reviewed and no addt'l complaints, except as documented; Denies abdominal pain, constipation or nausea Genitourinary Genitourinary: Reports systems reviewed and no addt'l complaints, except as documented; Denies burning urination, difficulty urinating, dysuria, urinary frequency or urinary incontinence Musculoskeletal Musculoskeletal: Reports systems reviewed and no addt'l complaints, except as documented Integumentary Integumentary: Reports systems reviewed and no addt'l complaints, except as documented Neurologic Neurologic: Reports systems reviewed and no addt'l complaints, except as documented; Denies abnormal speech, dizziness or headache(s) Psychiatric Psychiatric: Reports systems reviewed and no addt'l complaints, except as docu mented Endocrine Endocrinology: Reports systems reviewed and no addt'l complaints, except as documented Hematologic/Lymphatic Hematologic/Lymphatic: Reports systems reviewed and no addt'l complaints, except as documented Physical Exam Const alert, oriented x3 and no apparent distress Neck full ROM Resp normal respiratory effort, normal air movement and no retractions Effort and Inspection: able to speak in complete sentences and symmetric chest movement GI soft to palpation Bladder / Kidney Exam: bladder normal to palpation Uterus Palpation: uterus fundus firm (U) Extremity normal to inspection and full ROM Psych mental status grossly normal, thought process normal and cooperative Assessment & Plan (1) : QUALIFIERS: Weeks of gestation: 38 weeks Qualified Code(s): Z3A.38 - 38 weeks gestation of COMMENT: GBS Negative, NIPT low risk, discussed carrier testing, nl anatomy. (2) Supervision of high risk elderly multigravida in first trimester: COMMENT: PRR , SARTHAK 03/19/22, girl Carmine Priti [place], Spouse Srini (3) Previous delivery affecting : COMMENT: prev cs x 3 plan RLTCS. Scheduled for 03/23 @ 7:10 with JV PLAN: .s/p LTCS PPD # 1 1. routine post care 2. breast feeding- support given 3. rh positive 4. rubella immune 5. D/C home if desires Charges/Coding Procedures Urinary/Genital [id number]: No Charge Multi Select Codes Urinary/Genital Urinary/Genital CPT Codes: No Charge
--- NOTE | 2023-03-24 07:13 | DCINST_ITS ---
Discharge Instructions Diet Discharge Diet: No restrictions Activity Discharge Activity: Return to Normal Activity and May Shower May resume sexual activity in: 6-8 weeks Dressing / Incision Call your doctor if your incision/area has: Continuous Slow Oozing, Sudden Increased Bleeding, Increased Pain/ Swelling, Increased Redness, Foul Smelling Discharge and Swelling at the incision site Call your doctor if you observe: Fever of 101 or Higher, Numbness or Tingling, Change in Color, Inability to urinate, Inability to have a bowel movement, Using more than 1 pad per hour, Shortness of breath, Dizziness, Fainting spells, Swelling in the ankles, Chest pain, Calf discomfort and Uncontrolled pain Suture Line Care: Avoid Pulling/Pushing Remove Dressing in: 1 week Follow Up Care Please Follow Up With: Qian Kaiser DO When: Please call the office to schedule your follow up appointment in 2 weeks and again in 6 weeks. If you had high blood pressure please call to schedule an appointment in 2 weeks. Test Results: Test results from this visit will be discussed in further detail at your follow- up appointment, if applicable. Discharge Plan Admission Admit Date/Time: 03/23/23 05:05 Attending Provider: Qian Kaiser Primary Care Provider: Africa Arreola Discharge Orders/Prescriptions Prescriptions: New oxycodone 10 mg tablet 10 mg PO Q8H 3 Days Qty: 9 0RF Continued ferrous sulfate 325 mg (65 mg iron) tablet 325 mg PO DAILY loratadine [Claritin] 10 mg tablet 10 mg PO DAILY gqhlbxcm-sbf-Qt-FA 1 mg Tablet 1 tab PO DAILY No Action Probiotic 3 billion cell Capsule 0 mmu cells PO DAILY Rx Instructions: administer with a meal famotidine [Pepcid] 20 mg Tablet 20 mg PO BID azathioprine 100 mg tablet 100 mg PO DAILY Label Comments: on hold till speak w/ friend about lowering dose valacyclovir [Valtrex] 500 mg tablet 500 mg PO DAILY Qty: 90 3RF Referrals / Follow Up: Africa Arreola MD [Primary Care Provider] - Disposition Disposition (needs filled in before D/C Order can be placed): Home, Self Care
[2023-03-24 08:17] VITALS: BP 109/71; PULSE 80; RESP 16; TEMP 36.4; O2SAT 97
[2023-03-24] MEDS: azaTHIOprine 50 MG Tablet 100 MG PO (10:09)
[2023-03-24] MEDS: Loratadine 10 MG Tablet PO (10:14)
[2023-03-24] MEDS: Famotidine 20 MG Tablet PO (10:14)
[2023-03-24] MEDS: Enoxaparin 40 MG/0.4 ML Syringe SC (10:14)
[2023-03-24] MEDS: Naproxen 500 MG Tablet PO (12:10)
[2023-03-24] MEDS: Ferrous Sulfate 325 MG Tablet PO (12:10)
[2023-03-24] MEDS: Prenatal Vits Tablet 1 TABLET PO (12:18)
[2023-03-24 14:20] VITALS: BP 117/62; PULSE 90; RESP 16; TEMP 36.3
== END 2023-03-24 14:58 | disposition home or self-care (01) | DRG 784 ==
PROVIDERS: Admitting Provider Obstetrics & Gynecology; PCP Family Medicine; Visit Provider Obstetrics & Gynecology
PROC: 10D00Z1 Extraction of Products of Conception, Low, Open Approach (ICD-10-PCS; CPT 59514; principal; 2023-03-23 06:55)
DX: O34.219 Maternal care for unspecified type scar from previous cesarean delivery (principal); K51.90 Ulcerative colitis, unspecified, without complications; O72.1 Other immediate postpartum hemorrhage; O98.52 Other viral diseases complicating childbirth; J30.2 Other seasonal allergic rhinitis; O99.62 Diseases of the digestive system complicating childbirth; Z37.0 Single live birth; O26.33 Retained intrauterine contraceptive device in pregnancy, third trimester; O99.52 Diseases of the respiratory system complicating childbirth; B00.9 Herpesviral infection, unspecified; Z30.432 Encounter for removal of intrauterine contraceptive device; Z3A.39 39 weeks gestation of pregnancy; Z30.2 Encounter for sterilization
CPT/HCPCS: 59050; 85025; 85027; 86780; 86850; 86900; 86901; 87491; 87591; 88302; 94668; 99221; J7120; A4216; G0378; J2405

== ENCOUNTER → 2023-12-14 | Outpatient (CLI) | payer OTHER, SELFPAY ==
--- OUTSIDE RECORDS SUMMARY | 2023-12-14 09:40 | XMS RPT_ITS | CCD ---
Author Name Unknown Address [address] [place] [address] Organization [facility] Care Team Providers Care Pattern Shop Supervisor Name Role Phone Iesha Chandra MD Unavailable [phone] Yanira Roque LPN N Unavailable Yanira Roque LPN Unavailable [phone] Tucker Hayes Unavailable TIMO RILEY Attending Unavailable IESHA CHANDRA Referring Unavailabl e NO PRIMARY CARE, Primary Care Unavailable MICKIE MILLER Attending Unavailable IESHA CHANDRA Referring Unavailabl e NO PRIMARY CARE, Primary Care Unavailable TIMO RILEY Attending Unavailable IESHA CHANDRA Referring Unavailabl e NO PRIMARY CARE, Primary Care Unavailable JESSICA JAIMES Attending Unavailable IESHA CHANDRA Referring Unavailabl e NO PRIMARY CARE, Primary Care Unavailable GLENIS CHENEY Attending Unavailable JAYMIE CORBETT Referring Unavailab le NO PRIMARY CARE, Primary Care Unavailable Allergies Allergy Classification Reported Allergen(s) Allergy Type Date of Onset Reaction(s) Facility (11 sources) azithromycin drug allergy 04-16-2017 [facility] Work Phone: (12 sources) clindamycin; Translations: [CLINDAMYCIN] drug allergy 01-21-2013 [facility] Work Phone: (11 sources) sulfacetamide / sulfur drug allergy 04-16-2017 [facility] Work Phone: (1 source) Azithromycin; Translations: [AZITHROMYCIN] Drug Allergy 12-13-2005 [facility] Repository (1 source) Sulfacetamide; Translations: [SULFACETAMIDE] Drug Allergy 06-13-2007 [facility] Repository Medications Completed/Discontinued Medications Medication Drug Class(es) Dates Sig (Normalized) Sig (Original) amoxicillin 500 mg oral tablet (9 sources) Penicillin-class Antibacterial Start: 04-17-2017 End: 04-27-2017 AMOXICILLIN 500 MG TABS Take one tab every 12 hours AMOXICILLIN [id number] Tucker MCKNIGHT azaTHIOprine 75 mg oral tablet (19 sources) Purine Antimetabolite Start: 06-15-2017 take 1 tablet by mouth once daily AZASAN 75 MG TABS One tablet by mouth daily AZATHIOPRINE [id number] Iesha Chandra MD Problems Active Problems Problem Classification Problem Date Documented Date Episodic/Chronic Unclassified (8 sources) Screening for malignant neoplasm of cervix ; Translations: [Encounter for screening for malignant neoplasm of cervix] Onset: 06-15-2017 06-15-2017 Unclassified (8 sources) Gynecologic examination ; Translations: [Encounter for gynecological examination (general) (routine) without abnormal findings] Onset: 06-15-2017 06-15-2017 Past or Other Problems Problem Classification Problem Date Documented Date Episodic/Chronic Contraceptive and procreative management (4 sources) Encounter for removal of intrauterine contraceptive device; Translations: [Encounter for removal of intrauterine contraceptive device] Onset: 09-06-2017 09-11-2017 Episodic Immunizations and screening for infectious disease (8 sources) Encounter for screening for human papillomavirus (HPV); Translations: [Encounter for screening for human papillomavirus (HPV)] Onset: 06-15-2017 06-15-2017 Episodic Other upper respiratory infections (19 sources) Acute pharyngitis; Translations: [Acute pharyngitis, unspecified] Onset: 04-16-2017 Resolved: 06-18-2017 06-18-2017 Episodic Unclassified (19 sources) Generalized aches and pains; Translations: [Pain, unspecified] Onset: 04-16-2017 Resolved: 06-18-2017 06-18-2017 Episodic Results Test Name Value Interpretation Reference Range Facil ity Vital Signs Date Time Vital Sign Value Performing Clinician Faci lity 09-06-2017 11:51-0400 BMI (Body Mass Index) 30.89 kg/m2 Iesha Chandra MD [facility][1] 09-06-2017 11:51-0400 Body Temperature 97.9 [degF] Iesha Chandra MD [facility][1] 09-06-2017 11:51-0400 BP Diastolic 75 mm[Hg] Iesha Chandra MD [facility][1] 09-06-2017 11:51-0400 BP Systolic 119 mm[Hg] Iesha Chandra MD [facility][1] 09-06-2017 11:51-0400 Height 162.56 cm Iesha Chandra MD [facility][1] 09-06-2017 11:51-0400 Pulse (Heart Rate) 79 /min Iesha Chandra MD [facility][1] 09-06-2017 11:51-0400 Respiratory Rate 16 /min Iesha Chandra MD [facility][1] 09-06-2017 11:51-0400 Weight 81.65 kg Iesha Chandra MD [facility][1] 06-15-2017 09:52-0400 BMI (Body Mass Index) 30.68 kg/m2 Iesha Chandra MD [facility][1] 06-15-2017 09:52-0400 Body Temperature 98 [degF] Iesha Chandra MD [facility][1] 06-15-2017 09:52-0400 BP Diastolic 69 mm[Hg] Iesha Chandra MD [facility][1] 06-15-2017 09:52-0400 BP Systolic 104 mm[Hg] Iesha Chandra MD [facility][1] 06-15-2017 09:52-0400 Height 160.02 cm Iesha Chandra MD [facility][1] 06-15-2017 09:52-0400 Pulse (Heart Rate) 97 /min Iesha Chandra MD [facility][1] 06-15-2017 09:52-0400 Respiratory Rate 16 /min Iesha Chandra MD [facility][1] 06-15-2017 09:52-0400 Weight 78.56 kg Iesha Chandra MD [facility][1] 04-16-2017 08:14-0400 BMI (Body Mass Index) 30.11 kg/m2 Yanira Roque LPN [facility] Work Phone: 04-16-2017 08:14-0400 Body Temperature 99.2 [degF] Yanira Roque LPN [facility] Work Phone: 04-16-2017 08:14-0400 Body weight 77.11 kg Tucker Manzano JUAN LUIS [facility] Work Phone: 04-16-2017 08:14-0400 BP Diastolic 80 mm[Hg] Yanira Roque LPN [facility] Work Phone: 04-16-2017 08:14-0400 BP Systolic 124 mm[Hg] Yanira Roque LPN [facility] Work Phone: 04-16-2017 08:14-0400 Height 160.02 cm Yanira Roque LPN [facility] Work Phone: 04-16-2017 08:14-0400 Pulse (Heart Rate) 101 /min Yanira Roque LPN [facility] Work Phone: 04-16-2017 08:14-0400 Pulse Oximetry 98 % Yanira Roque LPN [facility] Work Phone: 04-16-2017 08:14-0400 Respiratory Rate 16 /min Yanira Roque LPN [facility] Work Phone: 04-16-2017 08:14-0400 Weight 77.11 kg Yanira Roque LPN [facility] Work Phone: Encounters Encounter Date Encounter Type Care Provider Facility Start: 11-21-2022 End: 11-21-2022 ambulatory TIMO RILEY [facility] Start: 10-27-2022 End: 10-27-2022 ambulatory GLENIS CHENEY [facility] Start: 09-15-2022 End: 09-15-2022 ambulatory JESSICA JAIMES [facility] Start: 08-24-2022 End: 08-24-2022 ambulatory TIMO RILEY [facility] Procedures Date Procedure Procedure Detail Performing Clinician Start: 09-06-2017 End: 09-10-2017 Removal intrauterine device iud Iesha Chandra MD Work Phone: Start: 09-06-2017 End: 09-10-2017 Remove intrauterine device Iesha conway MD Work Phone: Start: 04-16-2017 End: 04-16-2017 [facility] influenza Brannon More [facility] Start: 04-16-2017 End: 04-16-2017 [facility] streptococcus group a Brannon More [facility] Start: 04-16-2017 End: 04-16-2017 Documentation of current medications Tucker MCKNIGHT Start: 04-16-2017 End: 04-16-2017 [place] streptococcus group a Brannon More [facility] Start: 04-16-2017 End: 04-16-2017 Influenza assay w/optic Brannon More [facility] Start: 04-16-2017 End: 04-16-2017 Rapid strep test Brannon More [facility] Plan of Treatment Date Care Activity Detail Author Start: 04-16-2017 End: 04-16-2017 Streptococcus.beta-hemo lytic [Presence] in Throat by Organism specific culture *Culture, R/O Strep A Swab [facility] Start: 04-16-2017 End: 04-16-2017 Appointment Appointment [facility] Work Phone: Start: 04-16-2017 End: 04-16-2017 Streptococcus.beta-hemo lytic [Presence] in Throat by Organism specific culture *Culture, R/O Strep A Swab [facility] Work Phone: Patient Education [facility] Work Phone: Payers Date Payer Category Payer Unknown [id number] 2.. [id number] 1986 Unknown [id number] 1986 Unknown [id number] 2. [id number] 1986 Unknown [id number] 2. [id number] 1986 Unknown [id number] [id number]. [id number] Unknown [id number] Unknown [id number] Summary Purpose Family History No Family History Records Found Advance Directives No Advanced Directives Records Found Additional Source Comments INFORMATION SOURCE (unrecogn ized section and content) FOR RECORDS PERTAINING TO PATIENTS WHO ARE OR HAVE BEEN ENROLLED IN A CHEMICAL DEPENDENCY/SUBSTANCEABUSE PROGRAM, SOME INFORMATION MAY BE OMITTED. This clinical summary was aggregated from multiple sources. Caution should be exercised in using it in the provision of clinical care. This summary normalizes information from multiple sources, and as a consequence, information in this document may materially change the coding, format and clinical context of patient data. In addition, data may be omitted in some cases. CLINICAL DECISIONS SHOULD BE BASED ON THE PRIMARY CLINICAL RECORDS. [facility]. provides no warranty or guarantee of the accuracy or completeness of information in this document.
[2023-12-14 09:51] LABS: Erythrocyte Sedimentation Rate 14 mm/hr (0-30)
[2023-12-14 10:20] LABS: CRP 7.91 mg/L (0.0-3.0)
== END | disposition home or self-care (01) ==
LOC: LAB 08:44
PROVIDERS: PCP Internal Medicine; Referring Provider Internal Medicine Gastroenterology; Visit Provider Internal Medicine Gastroenterology
DX: K51.90 Ulcerative colitis, unspecified, without complications (principal)
CPT/HCPCS: 36415; 85652; 86140

== ENCOUNTER → 2024-05-06 | Outpatient (CLI) | payer OTHER, SELFPAY ==
[2024-05-06 10:51] LABS: Thyroid Stim Hormone (TSH) 2.13 uIU/mL (0.358-3.74)
== END | disposition home or self-care (01) ==
LOC: LAB 09:40
PROVIDERS: PCP Internal Medicine; Referring Provider Obstetrics & Gynecology; Visit Provider Obstetrics & Gynecology
DX: R63.5 Abnormal weight gain (principal)
CPT/HCPCS: 36415; 84443

== ENCOUNTER → 2024-05-20 | Outpatient (CLI) | payer OTHER, SELFPAY ==
--- NOTE | 2024-05-20 15:50 | BI_ITS ---
MAMMOGRAPHY - BILATERAL SCREENING REASON FOR EXAM: Female, 38 years old. Routine annual screening examination. PERTINENT HISTORY: Non-contributory. TECHNIQUE: Digital bilateral breast toney (3D mammographic acquisition) in the CC and MLO projections. 2-D mediolateral oblique (MLO) and craniocaudad (CC) views of both breasts were obtained. CAD: Full Field Digital Mammography with Computer Added Detection was performed. COMPARISON: Comparison is made with prior study dated September 17, 2018. FINDINGS: Breast Composition: The breasts are extremely dense, which lowers the sensitivity of mammography. There is a 1.1 cm x 1 cm well-defined nodule in the central lateral aspect of the right breast. Correlation with ultrasound is recommended for further evaluation. No other significant abnormalities are identified. BI/SCRN MAMM (CAD)W/TONEY BILAT IMPRESSION: 1.1 cm x 1 cm well-defined nodule in the central lateral aspect of the right breast. Relation with ultrasound is recommended for further evaluation. ASSESSMENT CATEGORY: BIRADS Category 0: Incomplete. Need additional imaging evaluation. A letter regarding these results will be sent to the patient by the facility within 30 days. Approximately 10% of breast cancers are not detected by mammography. A normal mammogram should not delay biopsy of a clinically suspicious abnormality. [id number] Electronically Signed: Alexandro Graham MD at 8:36 EDT ,
== END | disposition home or self-care (01) ==
LOC: OPBI 15:50
PROVIDERS: PCP Internal Medicine; Referring Provider Obstetrics & Gynecology; Visit Provider Obstetrics & Gynecology
DX: Z12.31 Encounter for screening mammogram for malignant neoplasm of breast (principal)
CPT/HCPCS: 77063; 77067

== ENCOUNTER → 2024-05-23 | Outpatient (CLI) | payer OTHER, SELFPAY ==
--- NOTE | 2024-05-23 11:04 | US_ITS ---
STUDY: ULTRASOUND BREAST - RIGHT REASON FOR EXAM: Female, 38 years old. Abnormal screening mammogram. TECHNIQUE: Axial and longitudinal images of the RIGHT breast were performed with a high resolution ultrasound transducer. # OF IMAGES: 29 COMPARISON: Comparison is made with prior mammogram dated May 20, 2024. FINDINGS: RIGHT Breast: The mammographic abnormality corresponds to a 1.3 cm x 1.2 cm x 0.5 cm hypoechoic nodule with a central fatty hilum suggestive of a lymph node. This is at the 8:00 position breast at 1 cm from nipple. US/Breast Complete Unilateral IMPRESSION: The mammographic abnormality corresponds to 1.3 cm x 1.2 cm x 0.5 cm hypoechoic nodule with a central fatty hilum suggestive of a lymph node. Routine mammographic follow-up is recommended. ASSESSMENT CATEGORY: BIRADS Category 2: Benign. A letter regarding these results will be sent to the patient by the facility within 30 days. Electronically Signed: Alexandro Graham MD at 12:52 EDT ,
== END | disposition home or self-care (01) ==
LOC: OPUS 11:02
PROVIDERS: PCP Internal Medicine; Referring Provider Obstetrics & Gynecology; Visit Provider Obstetrics & Gynecology
DX: N63.15 Unspecified lump in the right breast, overlapping quadrants (principal)
CPT/HCPCS: 76641

== ENCOUNTER 2024-06-24 08:47 | Day surgery (SDC) | payer OTHER, SELFPAY ==
[2024-06-24] VITALS (7 sets, daily range): BP systolic 83–99; BP diastolic 52–62; PULSE 64–91; RESP 16–18; TEMP 36.2–37; O2SAT 98–100; BMI 36.7
--- NOTE | 2024-06-24 08:57 | HP.PCM_ITS ---
History and Physical Date of Admission: 06/24/24 GERDA NOYOLA, is a 38 F who presents to the office today for follow up. GI Dr. Ramesh previously who prescribed Lialda 1.2g BID and Imuran 75mg QD and has been stable with this regimen for several years. *BGI established 09.24.21 with previously diagnosed ulcerative colitis at age 20. Continues to be stable with symptoms and without EIM. Colonoscopy 10.28.21 finding one 5mm TA polyp in ascending colon. Congested mucosa in rectum. Focal hyperplastic changes in the rectum. OV 11.10.21 Doing well without UC symptoms. Increase Imuran to 100mg QD. ? Repeat colonoscopy in 5 years OV 02.09.22 lialda stopped several weeks prior. No return of symptoms. Continue Imuran 100mg. OV 04.21.22 continues to be without UC disease symptoms. Plantar fasciitis is a difficulty which may account for inflammation. OV 9 Doing well, biochemical workup. OV 10.10.22 continues to be doing well without UC symptoms. Newly with an expected delivery date of 03.25.23. Continue azathioprine. OV 01.16.23 Continues to be doing well with regard to her UC without symptoms or EIM. 30 weeks. Continues with Azathioprine without difficulty. Biochemical workup OV 05.19.23 She is doing very well at this time with normal BM and without joint pain, vision changes and rashes. Gave 03.23.23. OV 11.21.23 reports she is doing well without GI difficulty. She has a pinched nerve in her neck for which she is being treated. OV 8 Pt reports that she is feeling well without GI symptoms of concern at this time. Pt reports regular bm; denies blood in the stool. ? ESR? CRP? Lacto? Calpro??? AST-ALT-AP 11.19.21 19? 12.50? --? --? -- 03.23.22 12? 10.20? --? --? -- 07.11.22 --? 9.31? --? WNL? -- 07.26.22 10? 9.34? --? --? [id number]? IgE <2, atypical pANCA H1:80, iron L28/sat L9. IgGAM, GHAZALA comp, celiac, homocysteine, ferritin WNL. 11.11.22 --? 11.80? --? --? -- 01.16.23 11? 13.50? --? --? 79 02.21.23 --? 19.80? --? --? -- 2.1.24 14 7.91 -- -- -- ROS Const Constitutional: No fatigue, fever(s) or weight change ENT ENT: No difficulty swallowing Gastro GI: No abdominal pain, belching, bloating, change in bowel habits, change in stool character, coffee ground emesis, constipation, cramping, diarrhea, heartburn, difficulty swallowing, feeling full early, excessive flatus, incontinent of stools, Vomiting blood/hematemesis, Blood in stool, loose stools, Black,tarry stools, nausea/dyspepsia, pain with swallowing, vomiting or other Musc Musculoskeletal: No joint pain Skin Skin: No yellowing of the eye or itchy eyes Psych Psychiatric: No anxiety and No depression Endo Endocrine: No fatigue or weight change Aller/Imm Allergy/Immunologic: No itchy eyes Zuhair/Lymp Hematologic/Lymphatic: No easy bleeding or easy bruising Exam Const General: cooperative, healthy appearing, no acute distress, well developed, not diaphoretic and not ill appearing Nutritional Appearance: well nourished Orientation: alert and oriented x3 Limitations: mental status not altered HENMT Head: normal to inspection, normocephalic and atraumatic Ears: hearing grossly normal bilaterally Face and sinus: normal facial exam Chest Chest palpation & inspection: normal inspection of the chest Resp Effort & Inspection: normal respiratory effort, able to speak in complete sentences, no audible wheezes and no cough Auscultation: Bilateral: Clear to Auscultation Cardio Rate: regular rate Rhythm: regular rhythm Heart Sounds: S1 normal, S2 normal and no murmurs Pulses: radial pulses present bilaterally 2+ Musc Cervical Spine: pain with cervical ROM and cervical ROM abnormal (slightly decreased, mostly with looking/leaning to right and upwards); No Lhermitte's sign positive, cervical muscular tenderness, cervical spinal tenderness or Spurling sign Thoracic/Lumbar Spine: no thoracic spinal tenderness and no lumbar spinal tenderness Skin General: no rashes or lesions noted and dry skin Wounds: no wounds Neuro General: patient alert, patient oriented x3, moves all extremities and deep tendon reflexes 2+ bilaterally Cognition: normal cognition Speech: speech normal Motor: strength 5/5 throughout Psych Appearance: grossly normal Mental Status: mental status grossly normal Affect: normal affect Attitude: cooperative Assessment and Plan Assessment and Plan (1) Ulcerative colitis: Status: Chronic Qualifiers: Digestive disease complication type: without complication Ulcerative colitis location: unspecified ulcerative colitis location Qualified Code(s): K51.90 - Ulcerative colitis, unspecified, without complications Plan: She is actually doing very. She had a successful and is actually doing very well. We had discussed her possibly titrating down the azathioprine and only being on a probiotic. She is willing to try to decrease down to 50 mg and then off to see how long we can maintain remission. I am just concerned about lifelong immunosuppression and the long-term side effects. She is ok with being on probiotics. She is okay if we have to be on it but she agreed that it would be good to try to wean it down and if we need to restart it she is okay with that. Recommendation: We will perform a surveillance colonoscopy. She was explained alternatives, risk, benefits including not withstanding bleeding, infection, sepsis, perfora tion, need for emergent urgent . She will have an ASA of 2. Continue probiotics as previously ordered I have examined the patient and the H&P has been reviewed. There are no clinical changes since date of exam.
[2024-06-24] MEDS: Lactated Ringers 1,000 ML 15 ML IV (09:11)
--- NOTE | 2024-06-24 10:00 | COLBX_PTH ---
PATIENT: GERDA NOYOLA LOC: EN U#:[id number] AGE/SX: 38/F ROOM: RE06/24/[address]: Dr. Hermelindo Sanchez DO : 1985 BED: DIS: 06/24/2024 SPEC #: [id number] RECD: 06/24/24 12:41 STATUS: TABATHA REQ #: [id number] KINGA: 06/24/24 10:[address]: Hermelindo Sanchez DEPT: SURGICAL PATHOLOGY RECD BY: Mariana Pringle ENTERED: 06/24/24 13:20 SP TYPE: COLON BX OT DR: Dr. Nidia Parker MD Tissues: A - Cecum, NOS B - Ileum, NOS C - COLON BIOPSY Procedures: Surgery Specimen Level IV HEADER OPERATION: Colonoscopy with biopsies PRE-OP DIAGNOSIS: Ulcerative colitis TISSUE SUBMITTED: A- Cecal polyp, B- Terminal ileum biopsy, C- Random colon biopsy MICROSCOPIC DIAGNOSIS A. Cecal polyp, biopsy: A fragment of colonic mucosa with focal minimal glandular distortion. B. Terminal ileum, biopsy: Fragments of small intestinal mucosa, no pathologic diagnosis. See comment. C. Colon, random biopsy: Fragments of colonic mucosa with focal minimal glandular distortion and cryptitis. See comment. UNIQUE/ 06/25/2024 COMMENT B. Prominent lymphoid aggregates are noted. C. Crypt abscesses or granulomas are not seen. Correlation with clinical, endoscopic findings and appropriate follow up are necessary. MICROSCOPIC DESCRIPTION Slides are reviewed. GROSS DESCRIPTION A. Received in fixative is one container labeled with the patient's name and designated Cecal polyp. The specimen consists of one irregular fragment of light chan soft tissue that measures 0.3 x 0.3 x 0.1 cm. The specimen is totally submitted in one cassette. B. Received in fixative is one container labeled with the patient's name and designated Terminal ileum biopsy. The specimen consists of two irregular fragments of light chan soft tissue that in aggregate measure 0.6 x 0.6 x 0.1 cm. The specimen is totally submitted in one cassette. C. Received in fixative is one container labeled with the patient's name and designated Random colon biopsy. The specimen consists of multiple irregular fragments of light chan soft tissue that in aggregate measure 2.0 x 0.5 x 0.1 cm. The specimen is totally submitted in one cassette. SJ/mr 06/24/2024 TC:2 CPT:82225i7
--- NOTE | 2024-06-24 10:03 | PCM.PRE.AN2 ---
ASA Classification* ASA Classification ASA Classification: 2 Assessment & Plan Anesthesia* Anesthesia Assessment Anesthesia Assessment: Discussed sedation and/or anesthesia options, risks, benefits, and alternatives with patient/parents/legal guardian/POA. Questions invited. The patient/parents/legal guardian/POA seems to understand and agrees to proceed with anesthesia plan. Reviewed the physical assessment, medical history, allergy history and patient home medications list prior to surgery/procedure/anesthetic and documented any changes. Performed airway and anesthesia risk assessments. Anesthesia Type Anesthesia Type: MAC History Source History Obtained from:: Patient and Chart Anesthesia Focused Assessment* Temperature: 97.2 F Pulse Rate: 91 Blood Pressure: 94/61 Respiratory Rate: 16 Pulse Ox: 100 Airway Assessment Mouth opens: >3 cm Mallampati Score: II Teeth Condition: Intact Neck Range of motion (ROM): Full ROM Focused Labs Anesthesia Preop lab: CBC WBC 6.5 K/mm3 (4.4-11.0) 08/15/23 07:42 RBC 4.01 M/mm3 (4.2-5.4) L 08/15/23 07:42 Hgb 11.9 g/dL (12.0-15.0) L 08/15/23 07:42 Hct 37.7 % (37-47) 08/15/23 07:42 Plt Count 242 K/mm3 (150-450) 08/15/23 07:42 CHEMISTRY Potassium 4.3 mmol/L (3.5-5.1) 08/15/23 07:42 Sodium 138 mmol/L (136-145) 08/15/23 07:42 Phosphorus 3.3 mg/dL (2.5-4.9) 08/15/23 07:42 BUN 18 mg/dL (7-18) 08/15/23 07:42 Creatinine 0.96 mg/dL (0.55-1.02) 08/15/23 07:42 Glucose 83 mg/dL (74-106) 08/15/23 07:42 TSH 2.13 uIU/mL (0.358-3.74) 05/06/24 09:42 COAG HCG, Quant 9268 mIU/mL (1-3) H 07/28/22 09:29 Urine Test Negative Negative 08/17/17 06:40 Pre-Assessment Diagnosis/Proposed Procedure Planned Operative Procedure(s): CSCOPE Anesthesia History 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 When Was Last Pacemaker Check QUESTION #4 FULL TEXT: You/Your Family Experience fever (hyperthermia) with Anesthesia Last Oral Intake Last Oral intake: Last Oral Intake NPO since 08:30 06/24/24 09:05 Meds taken in AM with sips of No 06/24/24 09:05 water? Meds patient instructed to take am of surgery PONV PONV - television producer: PONV - television producer Female Yes 06/20/24 08:53 HX of Motion Sickness No 06/20/24 08:53 HX of N/V After Surgery Yes 06/20/24 08:53 Non-Smoker Yes 06/20/24 08:53 Duration of Surgery greater No 06/20/24 08:53 than 60 minutes Number of Risk Factors 3 06/20/24 08:53 PONV Score Moderate Risk 06/20/24 08:53 Height & Weight Height & Weight: Anesthesia: Height & Weight Height 5 ft 4 in 06/24/24 09:05 Weight: 97 kg 06/24/24 09:05 Body Mass Index (BMI) 36.7 06/24/24 09:05 Respiratory Assessment Respiratory Assessment - television producer: Respiratory Tract Infection Hx - television producer Hx Respiratory Tract Infection No 06/20/24 08:53 STOP Sleep Apnea STOP Sleep Apnea - television producer: STOP Sleep Apnea - television producer Hx Hypertension No 06/20/24 08:53 Hx Sleep Apnea No 06/20/24 08:53 CPAP No 07/28/22 10:36 BIPAP No 07/28/22 10:36 Do you snore loudly (louder No 06/20/24 08:53 than talking or can be heard Do you often feel tired/ No 06/20/24 08:53 fatigued/ sleepy during daytime? Has anyone observed you stop No 06/20/24 08:53 breathing during sleep? STOP Results Negative 06/20/24 08:53 QUESTION #5 FULL TEXT : Do you snore loudly (louder than talking or can be heard through closed doors)? 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 Specify any problems Hx of Preganancy in last 3 N/A 06/20/24 08:53 Months Nurse Filling Out Transfusion NBUCHER 06/20/24 08:53 & Questions: Date: 06/20/24 06/20/24 08:53 Time: 08:54 06/20/24 08:53 Patient unable to answer at this time (ie. confused, unrespo /Reproduction History /Reproductive History - television producer: /Reproductive Hx- television producer Hx Now No 06/20/24 08:53 Gestational Age (in weeks): EDC: Hx Hx Para Hx Section SAB No 06/20/24 08:53 Active Medications Active Medications: Current Medications Generic Name Dose Route Start Last Admin Trade Name Freq PRN Reason Stop Dose Admin Lactated Ringer's 1,000 mls @ 15 mls/hr 06/24/24 09:15 06/24/24 09:11 IV 15 mls/hr .Q48H EMMANUEL Administration PFSH Medical History Wears glasses History of Clostridium difficile infection Hx of fracture Hx of breast lump Anesthesia complication Hx of herpes simplex type 2 infection Personal history of colonic polyps Wears contact lenses Syncope Heartburn Non-smoker History of tetanus, diphtheria, and acellular pertussis booster vaccination (Tdap) Anemia affecting Ulcerative colitis Anemia Home Medications ?Medication ?Instructions ?Recorded ?Last Taken ?Type loratadine 10 mg tablet (Claritin) 10 mg PO DAILY allergies 07/13/20 03/23/23 History lactobacillus combination no.4 3 0 mmu cells PO DAILY Check with 07/26/22 03/22/23 History billion cell capsule (Probiotic) primary doctor [id number] 1 mg 1 tab PO DAILY Check with primary 07/28/22 Unknown History tablet doctor valacyclovir 500 mg tablet 500 mg PO QODAY herpes 06/20/24 Unknown History (Valtrex) Allergy/AdvReac Type Severity Reaction Status Date / Time azithromycin (From Zithromax) Allergy Hives Verified 06/24/24 09:03 clindamycin Allergy Rash Verified 06/24/24 09:03 sulfacetamide Allergy Swelling Verified 06/24/24 09:03 Family History Grandfather Heart disease Cancer laryngeal Hypertension Mother Hypertension Rheumatoid arthritis Grandmother Diabetes Crohn's disease Father Hypertension Brother Pancreatic duct stricture Surgical History History of hysteroscopy Status post bilateral salpingectomy Hx of colonoscopy S/P wrist surgery delivery delivered H/O colonoscopy Social History adopted: No household members: spouse and children housing: house number of children: 4 current occupational status: employed 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 - [employer] current occupational exposures/hazards: No pets and animals: Yes pets and animals: dog(s) history of recent travel: No sexually active: Yes Smoking Status: Never smoker Electronic Cigarette Use: not used alcohol intake: never substance use type: does not use caffeine: No what type of physical activity do you participate in: walking frequency: 3-4 times per week jazlyn/jain: None seatbelt use: always do you feel safe at home: Yes additional social history: no French Review of Systems (Anesthesia) ROS Narrative System reviewed and no additional complaints, except as documented.
--- NOTE | 2024-06-24 10:30 | OP.CCLET_ITS ---
06/24/2024 Nidia Parker Md Re : Colonoscopy procedure for Janiya Landaverde Dear Keith This procedure was performed on Monday, June 24, 2024. My impressions and recommendations are as follows: Impressions : - The entire examined colon is normal. Biopsied. - One 5 mm polyp in the cecum, removed with a jumbo cold forceps. Resected and retrieved. - The examined portion of the ileum was normal. Biopsied. Recommendations : - Discharge patient to home. - Resume previous diet. - Continue present medications. - Await pathology results. - Repeat colonoscopy for surveillance based on pathology results. My findings are described in the full procedure note, which is enclosed. If I can be of further assistance, please feel free to contact me at . Sincerely, Hermelindo Sanchez, 06/24/2024 10:30:02 AM This report has been signed electronically.
--- NOTE | 2024-06-24 10:30 | OP.COLON_ITS ---
Patient Name: Janiya Landaverde Procedure Date: 06/24/2024 10:03 AM Date of : 1985 Age: 38 Procedure: Colonoscopy Indications: Disease activity assessment of left-sided chronic ulcerative colitis Providers: Hermelindo Sanchez DO Referring MD: Nidia Parker Md Medicines: Monitored Anesthesia Care Patient Profile: This is a 38 year old female. Refer to note in patient chart for documentation of history and physical. Last Colonoscopy: more than 3 years ago. Complications: No immediate complications. Procedure: Pre-Anesthesia Assessment: - Prior to the procedure, a History and Physical was performed, and patient medications and allergies were reviewed. The patient is competent. The risks and benefits of the procedure and the sedation options and risks were discussed with the patient. All questions were answered and informed consent was obtained. Patient identification and proposed procedure were verified in the pre-procedure area. Mental Status Examination: alert and oriented. Airway Examination: normal oropharyngeal airway and neck mobility. Respiratory Examination: clear to auscultation. CV Examination: normal. Prophylactic Antibiotics: The patient does not require prophylactic antibiotics. Prior Anticoagulants: The patient has taken no anticoagulant or antiplatelet agents. ASA Grade Assessment: II - A patient with mild systemic disease. After reviewing the risks and benefits, the patient was deemed in satisfactory condition to undergo the procedure. The anesthesia plan was to use monitored anesthesia care (MAC). Immediately prior to administration of medications, the patient was re-assessed for adequacy to receive sedatives. The heart rate, respiratory rate, oxygen saturations, blood pressure, adequacy of pulmonary ventilation, and response to care were monitored throughout the procedure. The physical status of the patient was re-assessed after the procedure. After I obtained informed consent, the scope was passed under direct vision. Throughout the procedure, the patient's blood pressure, pulse, and oxygen saturations were monitored continuously. The Colonoscope was introduced through the anus and advanced to the terminal ileum. The colonoscopy was performed without difficulty. The patient tolerated the procedure well. The quality of the bowel preparation was adequate. The terminal ileum, ileocecal valve, appendiceal orifice, and rectum were photographed. Scope In: 10:13:51 AM Scope Withdrawal Time 0 hours 9 minutes 29 seconds Scope Out: 10:25:36 AM Total Procedure Duration Time 0 hours 11 minutes 45 seconds Findings: The perianal and digital rectal examinations were normal. The colon (entire examined portion) appeared normal. Biopsies were taken with a cold forceps for histology. Verification of patient identification for the specimen was done. Estimated blood loss was minimal. A 5 mm polyp was found in the cecum. The polyp was sessile. The polyp was removed with a jumbo cold forceps. Resection and retrieval were complete. Verification of patient identification for the specimen was done. Estimated blood loss was minimal. The terminal ileum appeared normal. Biopsies were taken with a cold forceps for histology. Verification of patient identification for the specimen was done. Estimated blood loss was minimal. Impression: - The entire examined colon is normal. Biopsied. - One 5 mm polyp in the cecum, removed with a jumbo cold forceps. Resected and retrieved. - The examined portion of the ileum was normal. Biopsied. Recommendation: - Discharge patient to home. - Resume previous diet. - Continue present medications. - Await pathology results. - Repeat colonoscopy for surveillance based on pathology results. Procedure Code(s): --- Professional --- 52386, Colonoscopy, flexible; with biopsy, single or multiple CPT copyright 2021 [employer]. All rights reserved. The codes documented in this report are preliminary and upon radio journalist review may be revised to meet current compliance requirements. Hermelindo Sanchez DO 06/24/2024 10:30:02 AM This report has been signed electronically. Number of Addenda: 0 Note Initiated On: 06/24/2024 10:03 AM
--- NOTE | 2024-06-24 10:34 | PCM.POST.ANE ---
Anesthesia: Postop Eval I Current Vital Signs Temperature: 97.5 F Pulse Rate: 64 Blood Pressure: 99/62 Respiratory Rate: 16 Pulse Ox: 100 Oxygen Delivery Method: Room Air Assessment Airway patent: Yes Spontaneous unlabored respirations: Yes Mental status: Asleep nausea: No Vomiting: No Anesthesia Complication: No Fluid Hydration Crystalloid volume administer (ml): 600 Total IV fluid infused: 600 Progress Note Anesthesia document: Postop Eval 1 completed: Yes
--- NOTE | 2024-06-24 13:33 | PCM.POSTANE2 ---
Anesthesia Postop Eval I Sum Postop Eval Completion status Anesthesia document: Postop Eval 1 completed: Yes Anesthesia Postop Eval I Summary Anesthesia Postop Eval I Summary: Anesthesia Postop Eval I: Assessment Summary Airway patent Yes 06/24/24 10:35 [email or web address] Spontaneous unlabored Yes 06/24/24 10:35 [email or web address] respirations Mental status Asleep 06/24/24 10:35 [email or web address] nausea No 06/24/24 10:35 [email or web address] Vomiting No 06/24/24 10:35 [email or web address] Anesthesia Postop Eval I: Fluid Summary Crystalloid volume administer 600 06/24/24 10:35 [email or web address] (ml) Colloids volume administered ( ml) Blood Product volume administered (ml) Total IV fluid infused 600 06/24/24 10:35 [email or web address] Anesthesia Postop Eval I: Summary Notes Anesthesia Complication No 06/24/24 10:35 [email or web address] Anesthesia Complication Comment: Post-operative progress note Anesthesia: Postop Eval II Evaluation Mental status: Awake and Calm Pain Level: 0 nausea: No Vomiting: No Complications Anesthesia Complication: No
== END 2024-06-24 11:09 | disposition home or self-care (01) ==
LOC: EN 08:47 → AC 08:48
PROVIDERS: PCP Internal Medicine; Referring Provider Internal Medicine; Visit Provider Internal Medicine Gastroenterology
PROC: 0DJD8ZZ Inspection of Lower Intestinal Tract, Via Natural or Artificial Opening Endoscopic (ICD-10-PCS; CPT 45378; principal; 2024-06-24 09:55)
DX: K51.50 Left sided colitis without complications (principal); K63.5 Polyp of colon
CPT/HCPCS: 45380; 88305; J7120; J2405

== ENCOUNTER → 2024-08-27 | Outpatient (CLI) | payer OTHER, SELFPAY ==
[2024-08-27 10:33] LABS: Erythrocyte Sedimentation Rate 4 mm/hr (0-30)
[2024-08-27 11:17] LABS: CRP 6.83 mg/L (0.0-3.0)
== END | disposition home or self-care (01) ==
LOC: LAB 09:31
PROVIDERS: PCP Internal Medicine; Visit Provider Internal Medicine Gastroenterology
DX: K51.90 Ulcerative colitis, unspecified, without complications (principal)
CPT/HCPCS: 36415; 85652; 86140

== ENCOUNTER → 2024-09-30 | Outpatient (CLI) | payer OTHER, SELFPAY ==
[2024-09-30 17:40] LABS: Mucous, Urine 0 SEEN /hpf (<or=2+); Squamous Epithelial Cells - UA 0 SEEN /hpf (5-10)
[2024-09-30 17:47] LABS: Color, Urine Yellow (Yellow); Glucose, Dipstick Normal (Normal); Ketone-Dipstick Negative (Negative); Leukocyte Esterase-Dipstick 500 /ul (Negative); Nitrite-Dipstick Negative (Negative); Occult Blood-Urine 250 /ul (Negative); Protein-Dipstick 30 mg/dl (Negative); Urine Bilirubin Dipstick Negative (Negative); Urine Clarity Sl. Cloudy (Clear); Urine Urobilinogen Normal (Normal)
[2024-09-30 17:56] LABS: White Blood Cells 10-25 SEEN /hpf (0-5)
[2024-09-30 17:57] LABS: Bacteria 1+ /hpf (None Seen); Red Blood Cells-Urine 0-5 SEEN /hpf (0-5)
== END | disposition home or self-care (01) ==
LOC: LABSPEC 17:38
PROVIDERS: PCP Internal Medicine; Visit Provider Physician Assistant
DX: R30.0 Dysuria (principal)
CPT/HCPCS: 81001; 87086; 87088

== ENCOUNTER → 2025-05-19 | Outpatient (CLI) | payer OTHER, SELFPAY ==
[2025-05-21 20:08] LABS: HPV APTIMA, High Risk Negative (Negative)
== END | disposition home or self-care (01) ==
LOC: LABSPEC 11:59
PROVIDERS: PCP Internal Medicine; Visit Provider Obstetrics & Gynecology
DX: Z12.4 Encounter for screening for malignant neoplasm of cervix (principal)
CPT/HCPCS: 87624; 88175; G0145

== ENCOUNTER → 2025-06-10 | Outpatient (CLI) | payer OTHER, SELFPAY ==
--- NOTE | 2025-06-10 12:15 | BI_ITS ---
EXAM: SCRN MAMM (CAD)W/TONEY BILAT DATE: 06/10/2025 CLINICAL HISTORY: F, Age 39 y/o , SCREENING MAMMOGRAM No family history. TECHNIQUE: SCRN MAMM (CAD)W/TONEY BILAT COMPARISON: Prior exam(s) dated May 20, 2024.. FINDINGS: TISSUE DENSITY: The breasts are extremely dense, which lowers the sensitivity of mammography. Bilateral Breast Mammographic Findings: No significant masses, calcifications or other abnormalities are identified. Stable small benign-appearing bilateral axillary lymph nodes. No suspicious masses, areas of developing architectural distortion, or suspicious calcifications. There has been no significant interval change. BI/SCRN MAMM (CAD)W/TONEY BILAT IMPRESSION: Stable examination. OVERALL FINAL ASSESSMENT BI-RADS 2: BENIGN RECOMMENDATION: Routine annual follow-up in 1 Year A letter with findings and recommendations will be mailed to the patient. Reading Location: [id number]
--- NOTE | 2025-06-10 12:15 | BI_ITS ---
EXAM: SCRN MAMM (CAD)W/TONEY BILAT DATE: 06/10/2025 CLINICAL HISTORY: F, Age 39 y/o , SCREENING MAMMOGRAM No family history. TECHNIQUE: SCRN MAMM (CAD)W/TONEY BILAT COMPARISON: Prior exam(s) dated May 20, 2024.. FINDINGS: TISSUE DENSITY: The breasts are extremely dense, which lowers the sensitivity of mammography. Bilateral Breast Mammographic Findings: No significant masses, calcifications or other abnormalities are identified. Stable small benign-appearing bilateral axillary lymph nodes. No suspicious masses, areas of developing architectural distortion, or suspicious calcifications. There has been no significant interval change. BI/SCRN MAMM (CAD)W/TONEY BILAT IMPRESSION: Stable examination. OVERALL FINAL ASSESSMENT BI-RADS 2: BENIGN RECOMMENDATION: Routine annual follow-up in 1 Year A letter with findings and recommendations will be mailed to the patient. Reading Location: [id number]
== END | disposition home or self-care (01) ==
PROVIDERS: PCP Internal Medicine; Referring Provider Obstetrics & Gynecology; Visit Provider Obstetrics & Gynecology
DX: Z12.31 Encounter for screening mammogram for malignant neoplasm of breast (principal)
CPT/HCPCS: 77063; 77067

== ENCOUNTER → 2025-07-09 | Outpatient (CLI) | payer OTHER, SELFPAY ==
--- NOTE | 2025-07-09 12:56 | US_ITS ---
PROCEDURE: PELVIC W/ TRANSVAGINAL REASON FOR EXAM: ABNORMAL UTERINE BLEEDING TECHNIQUE: PELVIC W/ TRANSVAGINAL COMPARISON: None FINDINGS: LMP: June 16, 2025. Measurements: Uterus: 8.9 cm x 5.1 cm x 5.3 cm with a volume of 125.43 mL Endometrial Thickness: 10.8 mm. It is hyperechoic. Right Ovary: 2.8 cm x 2.8 cm x 2.1 cm with a volume of 8.55 mL. Left Ovary: 2.8 cm x 3.5 cm x 2.1 cm with a volume of 10.94 mL. TRANSABDOMINAL: Uterus: Normal size, myometrial echotexture, and contour. Endometrium: The endometrium measures 10.8 mm. This may represent a patient's menstrual phase. Right ovary: Normal size and echotexture. Left ovary: Normal size and echotexture. Other: No large pelvic mass identified. Transvaginal sonography was performed to better visualize the endometrium. TRANSVAGINAL: Uterus: Retroverted. Endometrium: Normal echotexture. Right ovary: Normal size and echotexture. Left ovary: Normal size and echotexture. Other adnexal findings: None. Cul-de-sac: [id number] amount of free fluid in the cul-de-sac. Tenderness: No tenderness US/Pelvic w/ Transvaginal IMPRESSION: NORMAL TRANSABDOMINAL AND TRANSVAGINAL PELVIC ULTRASOUND. [id number] amount of free fluid in the cul-de-sac. Reading Location: [facility]
== END | disposition home or self-care (01) ==
LOC: US 12:56
PROVIDERS: PCP Internal Medicine; Referring Provider Obstetrics & Gynecology; Visit Provider Obstetrics & Gynecology
DX: N93.9 Abnormal uterine and vaginal bleeding, unspecified (principal)
CPT/HCPCS: 76830; 76856